=== PATIENT | male | born 1945 | race Caucasian/White ===

== ENCOUNTER → 2018-02-11 09:46 | Outpatient (CLI) | payer MEDICARE, OTHER, SELFPAY ==
--- NOTE | 2018-02-11 | DI.US.S_ITS ---
PROCEDURE: US ABDOMEN LIMITED INDICATIONS: Inguinal mass on CAT SCAN TECHNIQUE: Real-time focused scanning was performed of the inguinal region, with image documentation. COMPARISON: [facility], CT, IVP (ABD & PEL WWO CONTRAST), 12/23/2017, 8:56. FINDINGS: No inguinal hernia found. IMPRESSION: Normal examination, no inguinal hernia found. Dictated by: Sharad Laguerre M.D. on 02/11/2018 at 11:01 Approved by: Sharad Laguerre M.D. on 02/11/2018 at 11:02
--- NOTE | 2018-02-11 | DI.US.S_ITS ---
PROCEDURE: US SCROTUM INDICATIONS: RIGHT SCROTAL MASS TECHNIQUE: Real-time scanning was performed of the scrotum and testicles, with image documentation. Color and pulse Doppler interrogation was performed of both testicles. COMPARISON: [facility], CT, IVP (ABD & PEL WWO CONTRAST), 12/23/2017, 8:56. FINDINGS: Right: Testicle is normal in size at 2.4 x 3.6 x 5.3 cm, and homogenous in echotexture. Epididymis is normal in overall size and morphology. No hydrocele or varicoceles. Overlying scrotal skin is normal in thickness. Left: Testicle is normal in size at 2.4 x 3.3 x 5.4 cm, and homogeneous in echotexture. Epididymis is normal in overall size and morphology. No hydrocele or varicoceles. Overlying scrotal skin is normal in thickness. Doppler: Color and pulse Doppler demonstrate normal and symmetric arterial flow in both testicles. IMPRESSION: No testicular or epididymal mass is identified. The asymmetry in appearance at the inferior margin of the CT scan performed 12/23/17 appears to have been secondary to a relatively high riding right testicle at time of CT scanning. No followup recommended. No inguinal hernia was identified by ultrasound today, either. Dictated by: Sharad Laguerre M.D. on 02/11/2018 at 11:02 Approved by: Sharad Laguerre M.D. on 02/11/2018 at 11:04
== END ==
PROVIDERS: PCP Internal Medicine; Visit Provider Specialist
DX: N50.89 Other specified disorders of the male genital organs (principal); R19.09 Other intra-abdominal and pelvic swelling, mass and lump
CPT/HCPCS: 76705; 76870

== ENCOUNTER → 2018-03-02 10:04 | Outpatient (CLI) | payer MEDICARE, OTHER, SELFPAY ==
[2018-03-02 12:46] LABS: Prostate Specific Antigen 0.664 ng/mL (0.10-4.00)
== END ==
PROVIDERS: PCP Internal Medicine; Visit Provider Specialist
DX: N40.1 Benign prostatic hyperplasia with lower urinary tract symptoms (principal)
CPT/HCPCS: 36415; 84153

== ENCOUNTER → 2018-03-10 07:30 | Outpatient (CLI) | payer MEDICARE, OTHER, SELFPAY ==
[2018-03-10 09:36] LABS: Add Manual Diff / Slide Review NO; Basophils Percent Auto 0.3 % (0-2); Eosinophils Percent Auto 4.6 % (2-4); Hematocrit 45.1 % (41-53); Hemoglobin 15.7 g/dL (13.5-17.5); Lymphocytes Percent Auto 36.1 % (25-40); Mean Corpuscular HGB Conc 34.8 % (30-36); Mean Corpuscular Hemoglobin 31.9 PG (26-34); Mean Corpuscular Volume 91.5 fL (80-100); Monocytes Percent Auto 8.2 % (3-14); Neutrophils Absolute Auto 2800 /uL (3000-5900); Neutrophils Percent Auto 50.8 % (50-75); Platelet Count 146 X10^3/uL (150-400); Red Blood Cell Count 4.93 X10^6/uL (4.5-5.9); Red Cell Distribution Width 13.5 % (11.6-14.8); White Blood Cell Count 5.6 X10^3/uL (4.5-11.0)
[2018-03-10 10:04] LABS: Alanine Aminotransferase 58 IU/L (21-72); Albumin 4.3 g/dL (3.5-5.0); Albumin Globulin Ratio 1.3 (1.0-2.8); Alkaline Phosphatase 84 U/L (38-126); Aspartate Aminotransferase 31 IU/L (17-59); BUN Creatinine Ratio 25.7 (6-22); Bilirubin Total 1.3 mg/dL (0.2-1.3); Blood Urea Nitrogen 18 mg/dL (9-20); Calcium 9.1 mg/dL (8.4-10.2); Carbon Dioxide 24 mmol/L (22-32); Chloride 104 mmol/L (98-107); Cholesterol 241 mg/dL (140-199); Estimated Glomerular Filt Rate > 60.0 mL/min (>60); Globulin 3.2 g/dL (1.7-4.1); Glucose 107 mg/dL (80-110); HDL Cholesterol 41 mg/dL (40-60); HEMOLYSIS < 15 (0-50); LDL Cholesterol Calculated 178 mg/dL (<100); Potassium 3.8 mmol/L (3.4-5.1); Sodium 140 mmol/L (137-145); Total Protein 7.5 g/dL (6.3-8.2); Triglycerides 108 mg/dL (35-150)
[2018-03-10 10:17] LABS: Free T4, Direct Thyroxine 1.26 ng/dL (0.78-2.19)
[2018-03-10 10:31] LABS: Thyroid Stimulating Hormone 2.47 uIU/mL (0.47-4.68)
== END ==
PROVIDERS: PCP Internal Medicine; Visit Provider Internal Medicine
DX: R03.0 Elevated blood-pressure reading, without diagnosis of hypertension (principal); E78.2 Mixed hyperlipidemia
CPT/HCPCS: 36415; 80053; 80061; 84439; 84443; 85025

== ENCOUNTER → 2018-11-30 16:13 | Outpatient (CLI) | payer MEDICARE, OTHER, SELFPAY ==
[2018-11-30 17:00] LABS: Add Manual Diff / Slide Review NO; Basophils Absolute Auto 100 /uL (0-100); Eosinophils Absolute Auto 400 /uL (0-450); Eosinophils Percent Auto 5.8 % (2-4); Hematocrit 44.4 % (41-53); Lymphocytes Absolute Auto 2600 /uL (1100-4500); Lymphocytes Percent Auto 41.5 % (25-40); Mean Corpuscular HGB Conc 33.7 % (30-36); Mean Corpuscular Hemoglobin 30.5 PG (26-34); Mean Corpuscular Volume 90.5 fL (80-100); Monocytes Absolute Auto 600 /uL (0-900); Monocytes Percent Auto 8.6 % (3-14); Neutrophils Absolute Auto 2700 /uL (1500-7000); Neutrophils Percent Auto 43.1 % (50-75); Platelet Count 139 X10^3/uL (150-400); Red Blood Cell Count 4.91 X10^6/uL (4.5-5.9); Red Cell Distribution Width 13.7 % (11.6-14.8); White Blood Cell Count 6.4 X10^3/uL (4.5-11.0)
[2018-12-03 15:00] LABS: Protein C Activity 92 % normal (70-180)
[2018-12-03 17:11] LABS: Anti Cardiolipin Antibody IgG <14 GPL
== END ==
PROVIDERS: PCP Internal Medicine; Visit Provider Internal Medicine
DX: I82.409 Acute embolism and thrombosis of unspecified deep veins of unspecified lower extremity (principal)
CPT/HCPCS: 36415; 81241; 85025; 85300; 85303; 86147

== ENCOUNTER → 2018-12-28 08:56 | Outpatient (CLI) | payer MEDICARE, OTHER, SELFPAY ==
[2018-12-28 10:26] LABS: Alanine Aminotransferase 128 IU/L (21-72); Albumin Globulin Ratio 1.4 (1.0-2.8); Alkaline Phosphatase 118 U/L (38-126); Aspartate Aminotransferase 63 IU/L (17-59); BUN Creatinine Ratio 21.3 (6-22); Bilirubin Total 3.1 mg/dL (0.2-1.3); Blood Urea Nitrogen 17 mg/dL (9-20); Calcium 9.2 mg/dL (8.4-10.2); Carbon Dioxide 25 mmol/L (22-32); Chloride 102 mmol/L (98-107); Cholesterol 165 mg/dL (140-199); Estimated Glomerular Filt Rate > 60.0 mL/min (>60); Globulin 2.8 g/dL (1.7-4.1); Glucose 123 mg/dL (80-110); HDL Cholesterol 26 mg/dL (40-60); HEMOLYSIS < 15 (0-50); LDL Cholesterol Calculated 107 mg/dL (<100); Potassium 3.7 mmol/L (3.4-5.1); Sodium 138 mmol/L (137-145); Total Protein 6.8 g/dL (6.3-8.2); Triglycerides 158 mg/dL (35-150)
== END ==
PROVIDERS: PCP Internal Medicine; Visit Provider Internal Medicine
DX: E78.2 Mixed hyperlipidemia (principal)
CPT/HCPCS: 36415; 80053; 80061

== ENCOUNTER → 2019-01-08 11:31 | Outpatient (CLI) | payer MEDICARE, OTHER, SELFPAY ==
[2019-01-08 13:07] LABS: Alanine Aminotransferase 94 IU/L (21-72); Albumin 4.2 g/dL (3.5-5.0); Albumin Globulin Ratio 1.5 (1.0-2.8); Alkaline Phosphatase 90 U/L (38-126); Aspartate Aminotransferase 54 IU/L (17-59); Bilirubin Total 1.3 mg/dL (0.2-1.3); Bilirubin Unconjugated 0.8 mg/dL (0.0-1.1); Globulin 2.8 g/dL (1.7-4.1); HEMOLYSIS < 15 (0-50); Lipase 45 U/L (23-300)
[2019-01-11 16:06] LABS: Hepatitis A Antibody IgM NONREACTIVE (NONREACTIVE); Hepatitis Acute Panel Interp 0.02; Hepatitis B Core Antibody IgM NONREACTIVE (NONREACTIVE); Hepatitis B Surface Antigen NONREACTIVE (NONREACTIVE); Hepatitis C Antibody NONREACTIVE
== END ==
PROVIDERS: PCP Internal Medicine; Visit Provider Internal Medicine
DX: K75.9 Inflammatory liver disease, unspecified (principal)
CPT/HCPCS: 36415; 80074; 80076; 83690

== ENCOUNTER → 2019-01-11 07:26 | Outpatient (CLI) | payer MEDICARE, OTHER, SELFPAY ==
--- NOTE | 2019-01-11 07:28 | DI.US.S_ITS ---
PROCEDURE: US ABDOMEN COMPLETE INDICATIONS: HEPATITIS, ELEVATED LFTS TECHNIQUE: Real-time scanning was performed of the abdominal and retroperitoneal organs, with image documentation. COMPARISON: None. FINDINGS: Liver: Liver is normal in size and homogeneous in echotexture. Gallbladder: The gallbladder contains sludge and wall thickness is normal at 2.6 mm. Biliary ducts: Intrahepatic bile ducts are non-dilated. Extrahepatic bile duct caliber measures 5.3 mm. Normal is 6-7 mm or less in diameter, or 10 mm or less post-cholecystectomy. Pancreas: Not seen due to bowel gas Spleen: Spleen is normal in size and homogeneous in echotexture. Kidneys: Kidneys are normal in size and echotexture. Right kidney measures 11.6 cm long; left kidney measures 11.1 cm long. No hydronephrosis or nephrolithiasis. No solid masses. Aorta: Visualized aorta is normal in caliber at less than 3 cm. Iliacs: Proximal common iliac arteries are normal in caliber at less than 2.5 cm. IVC: Intrahepatic inferior vena cava is patent. Miscellaneous: No free abdominal fluid. IMPRESSION: Sludge is seen within the gallbladder lumen but there is no sign of acute cholecystitis or biliary obstruction. The liver and spleen are normal in size. The pancreas could not be seen due to overlying bowel gas. Dictated by: Sharad Laguerre M.D. on 01/11/2019 at 9:05 Approved by: Sharad Laguerre M.D. on 01/11/2019 at 9:07
== END ==
PROVIDERS: PCP Internal Medicine; Visit Provider Internal Medicine
DX: K75.9 Inflammatory liver disease, unspecified (principal); K82.8 Other specified diseases of gallbladder; R79.89 Other specified abnormal findings of blood chemistry
CPT/HCPCS: 76700

== ENCOUNTER 2019-04-19 11:37 | Inpatient (IN) | payer MEDICARE, OTHER, SELFPAY ==
[2019-04-19] VITALS (9 sets, daily range): BP systolic 114–162; BP diastolic 65–98; PULSE 55–112; RESP 24–40; TEMP 35.9–37.7; O2SAT 93–100; BMI 30.5
--- NOTE | 2019-04-19 11:47 | DI.CT.S_ITS ---
PROCEDURE: CT ANGIO CHEST PE PROTOCOL INDICATIONS: dyspnea, R CP, h/o DVT TECHNIQUE: After the administration of intravenous contrast, 2 mm thick sections acquired from the pulmonary apices to the posterior costophrenic angles. 3-dimensional maximum intensity projection (MIP) coronal and sagittal reformats were then acquired through the thorax. For radiation dose reduction, the following was used: automated exposure control, adjustment of mA and/or kV according to patient size. COMPARISON: None. FINDINGS: Image quality: Excellent. Pulmonary arteries: Pulmonary arteries are prominent in size. There are filling defects seen in distal right main pulmonary artery extending into upper and lower lobe pulmonary artery branches. No filling defect is seen in left pulmonary artery branches. Lungs and pleura: Small partially loculated right pleural effusion is seen with fluid extending into major and minor fissures on the right side. Patchy airspace opacities are noted in posterior and lateral aspect of right lower lobe. Hazy groundglass opacities in right lower lobe are also seen. There is scarring/atelectasis seen in posterior and lateral aspect of left lung base. No pneumothorax. Central and peripheral airways are patent. Mediastinum: Heart size is enlarged, without pericardial effusion. No mediastinal or hilar adenopathy. Mild ascending thoracic aortic aneurysm is seen, measures up to 4.1 cm in its largest AP and transverse dimensions. Esophagus is normal in caliber, with a small hiatal hernia. Bones and chest wall: No suspicious bony lesions. Ribs and thoracic spine appear intact throughout. Thyroid gland is within normal limits. No axillary or supraclavicular adenopathy. Abdomen: Hepatic steatosis is seen. The visualized portion of urinary bladder shows questionable bladder wall enhancement. A tiny 2 mm calcification in dependent portion of gallbladder lumen is seen. IMPRESSION: 1. Pulmonary emboli in right distal main pulmonary artery extending to right upper and lower lobe pulmonary artery branches. No left-sided pulmonary emboli. 2. Mild ascending thoracic aortic aneurysm measures up to 4.1 cm in diameter. No aortic dissection. Cardiomegaly, no pericardial effusion. 3. Small hiatal hernia. Hepatic steatosis. Tiny gallstone. Please correlate with CT of abdomen and pelvis finding. 4. Small partially loculated right pleural effusion with right lower lobe patchy infiltrate/atelectasis. Scarring/atelectasis at left lung base. Dictated by: Brennan Barr M.D. on 04/19/2019 at 13:33 Approved by: Brennan Barr M.D. on 04/19/2019 at 13:50
--- NOTE | 2019-04-19 11:48 | DI.RAD.S_ITS ---
PROCEDURE: XR CHEST 1V INDICATIONS: R. CP TECHNIQUE: One view of the chest was acquired. COMPARISON: [facility], CT, IVP (ABD & PEL WWO CONTRAST), 12/23/2017, 8:56. [facility], CR, CHEST 1 VIEW, 06/13/2017, 15:12. FINDINGS: Surgical changes and devices: None. Lungs and pleura: Mild bibasilar hazy and streaky opacity, which appears similar to to the lung bases on the CT from 12/23/2017. No consolidation. Blunting of the costophrenic angles which may represent trace pleural effusions. No pneumothorax. Mediastinum: Mediastinal contours appear normal. Heart size is within normal limits. Bones and chest wall: No suspicious bony lesions. Mild scoliosis. Overlying soft tissues appear unremarkable. IMPRESSION: Bibasilar hazy and streaky opacity. This most likely represents atelectasis and/or scarring. Question of trace bilateral pleural effusions. Dictated by: Randal Herrera M.D. on 04/19/2019 at 12:18 Approved by: Randal Herrera M.D. on 04/19/2019 at 12:21
--- NOTE | 2019-04-19 11:59 | PC.NURSE ---
Patient reports shortness of breath with exertion, tachypnea, fatigue, and left chest pain in lower ribs/under left arm area. Seen at clinic today and sent here for r/o blood clot. Patient has A.fib. 100-120bpm with no prior diagnosis of the same.
[2019-04-19 12:01] LABS: Add Manual Diff / Slide Review NO; Basophils Absolute Auto 100 /uL (0-100); Basophils Percent Auto 0.5 % (0-2); Eosinophils Absolute Auto 100 /uL (0-450); Eosinophils Percent Auto 0.5 % (2-4); Hematocrit 50.1 % (41-53); Lymphocytes Absolute Auto 2200 /uL (1100-4500); Lymphocytes Percent Auto 13.9 % (25-40); Mean Corpuscular Hemoglobin 31.5 PG (26-34); Mean Corpuscular Volume 92.6 fL (80-100); Monocytes Absolute Auto 1900 /uL (0-900); Monocytes Percent Auto 12.2 % (3-14); Neutrophils Absolute Auto 11300 /uL (1500-7000); Neutrophils Percent Auto 72.9 % (50-75); Platelet Count 158 X10^3/uL (150-400); Red Blood Cell Count 5.41 X10^6/uL (4.5-5.9); Red Cell Distribution Width 13.3 % (11.6-14.8); White Blood Cell Count 15.5 X10^3/uL (4.5-11.0)
--- NOTE | 2019-04-19 12:05 | ED.SOB ---
HPI - SOB/Dyspnea <Janeth Ortega PA-C - Last Filed: 04/19/19 20:19> General Chief Complaint: Shortness of Breath/Dyspnea Stated Complaint: Sent from [facility] possible clot in lung Time Seen by Provider: 04/19/19 11:43 Source: patient, family and other ([facility] [employer] Lani York) Mode of arrival: ambulatory Limitations: no limitations History of Present Illness This 74-year-old male comes to ED secondary to 4 day history of dyspnea on exertion with some right-sided chest pain. He states that he does not have dyspnea at rest. He states pain feels like it is in his right ribs, like a broken rib. It has actually improved significantly since onset Friday. Pain does not radiate. He denies any palpitations. He states that he has not had wheeze. He has had very mild dry cough since Friday. He has not had any other recent upper respiratory symptoms. He states that he had 1 fever of he believes 101.5 on Friday, none since, has felt a little bit clammy off and on. He denies any nausea, vomiting, or abdominal pain, but states he has had reduced appetite. He states that he has not had any swelling in his arms or legs nor any new pain. He has not had any bowel habit changes. He states he has noticed some orange discoloration of his urine during the same time.. He had this earlier in the year with elevated bilirubin, felt to be viral at that time and resolved on its own. He does have history of DVT diagnosed approximately 6 months ago after air travel. He was on Xarelto x4 months, then discontinued about 2 months ago. He did travel by air again about a month ago to [facility]. He denies any new rash. He states comes are not worse today, just were not getting better so decided to see PCP who sent him here. He has not had any other recent travel or periods of immobility Related Data Home Medications Medication Instructions Recorded Confirmed Vitamin D3 1 cap PO DAILY 04/19/19 04/19/19 Previous Rx's Medication Instructions Recorded atorvastatin 20 mg tablet 20 mg PO DAILY #90 tab 03/27/18 Allergies Allergy/AdvReac Type Severity Reaction Status Date / Time No Known Drug Allergies Allergy Verified 04/19/19 11:14 Review of Systems <Janeth Ortega PA-C - Last Filed: 04/19/19 20:19> Review of Systems ROS Unobtainable: All systems reviewed & are unremarkable except as noted in HPI and below PFSH <Janeth Ortega PA-C - Last Filed: 04/19/19 20:19> Medical History History of DVT of lower extremity (Resolved) Mixed hyperlipidemia (Chronic 06/01/02) 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 Social History Smoking Status: Never smoker Family History Father Prostate cancer Mother No problems noted. Social History household members: spouse Smoking Status: Never smoker alcohol intake: current Exam <Janeth Ortega PA-C - Last Filed: 04/19/19 20:19> Narrative Exam Narrative: GENERAL APPEARANCE: Patient sitting comfortably, in no distress. HEENT: PERRL, EOMI, no scleral icterus, normal oropharynx NECK: Supple LUNGS: Clear to auscultation bilaterally, splinting slightly. CHEST: Mild tenderness around the right inferior ribs HEART: Rate and rhythm regular, normal S1 and S2, no S3 or S4. ABDOMEN: Soft, nondistended, bowel sounds present x 4 quadrants, no masses palpable, no hepatosplenomegaly. Moderate right upper quadrant tenderness without guarding or rebound, no tenderness elsewhere EXTREMITIES: No edema, no calf tenderness DERMATOLOGIC: No jaundice or exanthem NEUROLOGIC: Alert and oriented with normal speech and coordination Initial Vital Signs Initial Vital Signs: Vital Signs Temperature 98.3 F 04/19/19 11:48 Pulse Rate 112 H 04/19/19 11:48 Respiratory Rate 24 04/19/19 11:48 Blood Pressure 162/97 H 04/19/19 11:48 Pulse Oximetry 100 04/19/19 11:48 <Juan Miguel Esqueda DO - Last Filed: 04/20/19 06:49> Initial Vital Signs Initial Vital Signs: Vital Signs Temperature 98.3 F 04/19/19 11:48 Pulse Rate 112 H 04/19/19 11:48 Respiratory Rate 24 04/19/19 11:48 Blood Pressure 162/97 H 04/19/19 11:48 Pulse Oximetry 100 04/19/19 11:48 Course <Janeth Ortega PA-C - Last Filed: 04/19/19 20:19> Additional Information: After verbal report from radiologist regarding significant left-sided PE, I have spoken with Dr. Balderas, patient's PCP regarding admission. Not clear whether this PE is from his previous DVT verses new as he did fly again last month. He has not had any new lower extremity pain or swelling, and the symptoms just started 3 days ago. He also has what is presumably new onset atrial fibrillation as he has been completely asymptomatic. His oxygen saturation has been normal during his stay on room air, somewhat tachypneic. Dr. Balderas agrees with inpatient admission, tele requested, and he will see patient Orders Ordered: ED Orders 04/20/19 04:40 Basic Metabolic Panel Routine Complete Blood Count AUTO DIFF Routine Acetaminophen (Tylenol) 650 mg PO Q6HR PRN PRN Reason: As Needed for Fever/Mild Pain Hydrocodone Bitart/Acetaminophen ([place] 5/325) 1 tab PO Q4HR PRN PRN Reason: Pain, Moderate (4-6) Atorvastatin Calcium (Lipitor) 20 mg PO DAILY [facility] Ketorolac Tromethamine (Toradol) 15 mg IV Q6H PRN PRN Reason: chest pain Stop: 04/24/19 16:49 Last Admin: 04/20/19 00:07 Dose: 15 mg Admin: 04/19/19 17:09 Dose: 15 mg Metoprolol Tartrate (Lopressor) 25 mg PO BID [facility] Last Admin: 04/19/19 22:09 Dose: Not Given Admin: 04/19/19 17:09 Dose: 25 mg Ondansetron HCl (Zofran) 4 mg IV Q8HR PRN PRN Reason: Nausea And Vomiting Rivaroxaban (Xarelto) 15 mg PO BIDWM [facility] Stop: 05/10/19 08:01 Last Admin: 04/19/19 17:10 Dose: 15 mg Sodium Chloride (Normal Saline 0.9% Flush) 10 ml IV BID [facility] Last Admin: 04/19/19 21:33 Dose: 10 ml Sodium Chloride (Normal Saline 0.9% Flush) 10 ml IV PRN PRN PRN Reason: Flush Discontinued Medications Enoxaparin Sodium (Lovenox) 95 mg 1 mg/kg (95 mg) SUBCUT NOW ONE Stop: 04/19/19 14:22 Last Admin: 04/19/19 15:30 Dose: Not Given Enoxaparin Sodium (Lovenox) 95 mg 1 mg/kg (95 mg) SUBCUT NOW ONE Stop: 04/19/19 14:46 Last Admin: 04/19/19 15:06 Dose: 95 mg Vital Signs - 8 hr 04/20/19 00:15 04/20/19 00:37 04/20/19 04:57 Temperature 97.4 F L 97.4 F L Pulse Rate 86 59 L Respiratory Rate 31 H 18 Blood Pressure 117/80 104/79 Pulse Oximetry 97 95 95 <Juan Miguel Esqueda DO - Last Filed: 04/20/19 06:49> Orders Ordered: ED Orders 04/20/19 04:40 Basic Metabolic Panel Routine Complete Blood Count AUTO DIFF Routine Acetaminophen (Tylenol) 650 mg PO Q6HR PRN PRN Reason: As Needed for Fever/Mild Pain Hydrocodone Bitart/Acetaminophen ([place] 5/325) 1 tab PO Q4HR PRN PRN Reason: Pain, Moderate (4-6) Atorvastatin Calcium (Lipitor) 20 mg PO DAILY [facility] Ketorolac Tromethamine (Toradol) 15 mg IV Q6H PRN PRN Reason: chest pain Stop: 04/24/19 16:49 Last Admin: 04/20/19 00:07 Dose: 15 mg Admin: 04/19/19 17:09 Dose: 15 mg Metoprolol Tartrate (Lopressor) 25 mg PO BID [facility] Last Admin: 04/19/19 22:09 Dose: Not Given Admin: 04/19/19 17:09 Dose: 25 mg Ondansetron HCl (Zofran) 4 mg IV Q8HR PRN PRN Reason: Nausea And Vomiting Rivaroxaban (Xarelto) 15 mg PO BIDWM [facility] Stop: 05/10/19 08:01 Last Admin: 04/19/19 17:10 Dose: 15 mg Sodium Chloride (Normal Saline 0.9% Flush) 10 ml IV BID [facility] Last Admin: 04/19/19 21:33 Dose: 10 ml Sodium Chloride (Normal Saline 0.9% Flush) 10 ml IV PRN PRN PRN Reason: Flush Discontinued Medications Enoxaparin Sodium (Lovenox) 95 mg 1 mg/kg (95 mg) SUBCUT NOW ONE Stop: 04/19/19 14:22 Last Admin: 04/19/19 15:30 Dose: Not Given Enoxaparin Sodium (Lovenox) 95 mg 1 mg/kg (95 mg) SUBCUT NOW ONE Stop: 04/19/19 14:46 Last Admin: 04/19/19 15:06 Dose: 95 mg Vital Signs - 8 hr 04/20/19 00:15 04/20/19 00:37 04/20/19 04:57 Temperature 97.4 F L 97.4 F L Pulse Rate 86 59 L Respiratory Rate 31 H 18 Blood Pressure 117/80 104/79 Pulse Oximetry 97 95 95 MDM - SOB/Dyspnea <Janeth Ortega PA-C - Last Filed: 04/19/19 20:19> Lab Data Attestation: I reviewed the patient's lab results. Result diagrams: 04/20/19 04:40 04/20/19 04:40 Lab Results 04/19/19 04/19/19 04/19/19 Range/Units 11:45 11:45 11:45 WBC 15.5 H (4.5-11.0) X10^3/uL RBC 5.41 (4.5-5.9) X10^6/uL Hgb 17.0 (13.5-17.5) g/dL Hct 50.1 (41-53) % MCV 92.6 (80-100) fL MCH 31.5 (26-34) PG MCHC 34.0 (30-36) % RDW 13.3 (11.6-14.8) % Plt Count 158 (150-400) X10^3/uL Neut % (Auto) 72.9 (50-75) % Lymph % (Auto) 13.9 L (25-40) % [place] % (Auto) 12.2 (3-14) % Eos % (Auto) 0.5 L (2-4) % Baso % (Auto) 0.5 (0-2) % Neut # (Auto) 62540 H (3521-0938) /uL Lymph # (Auto) 2200 (8102-3655) /uL [place] # (Auto) 1900 H (0-900) /uL Eos # (Auto) 100 (0-450) /uL Baso # (Auto) 100 (0-100) /uL Sodium 138 (137-145) mmol/L Potassium 4.2 (3.4-5.1) mmol/L Chloride 96 L (98-107) mmol/L Carbon Dioxide 26 (22-32) mmol/L BUN 20 (9-20) mg/dL Creatinine 0.90 (0.66-1.25) mg/dL Estimated GFR > 60.0 (>60) mL/min BUN/Creatinine Ratio 22.2 H (6-22) Glucose 147 H (80-110) mg/dL Calcium 9.3 (8.4-10.2) mg/dL Magnesium 2.1 (1.6-2.3) mg/dL Total Bilirubin 2.8 H (0.2-1.3) mg/dL Direct Bilirubin (0.0-0.4) mg/dL AST 29 (17-59) IU/L ALT 26 (21-72) IU/L Alkaline Phosphatase 102 (38-126) U/L Total Creatine Kinase 67 (55-170) U/L CK-MB (CK-2) TNP CK-MB (CK-2) Rel Index TNP Troponin I 0.015 (0.01-0.034) ng/mL B-Natriuretic Peptide 392 H (<100) Total Protein 8.2 (6.3-8.2) g/dL Albumin 4.3 (3.5-5.0) g/dL Globulin 3.9 (1.7-4.1) g/dL Albumin/Globulin Ratio 1.1 (1.0-2.8) Nasal Screen MRSA (PCR) (Negative) 04/19/19 04/19/19 04/20/19 Range/Units 11:45 15:23 04:40 WBC 11.0 (4.5-11.0) X10^3/uL RBC 4.76 (4.5-5.9) X10^6/uL Hgb 15.3 (13.5-17.5) g/dL Hct 43.5 (41-53) % MCV 91.5 (80-100) fL MCH 32.2 (26-34) PG MCHC 35.2 (30-36) % RDW 13.3 (11.6-14.8) % Plt Count 145 L (150-400) X10^3/uL Neut % (Auto) 64.7 (50-75) % Lymph % (Auto) 20.2 L (25-40) % [place] % (Auto) 13.0 (3-14) % Eos % (Auto) 1.5 L (2-4) % Baso % (Auto) 0.6 (0-2) % Neut # (Auto) 7100 H (1949-2733) /uL Lymph # (Auto) 2200 (2084-2752) /uL [place] # (Auto) 1400 H (0-900) /uL Eos # (Auto) 200 (0-450) /uL Baso # (Auto) 100 (0-100) /uL Sodium (137-145) mmol/L Potassium (3.4-5.1) mmol/L Chloride (98-107) mmol/L Carbon Dioxide (22-32) mmol/L BUN (9-20) mg/dL Creatinine (0.66-1.25) mg/dL Estimated GFR (>60) mL/min BUN/Creatinine Ratio (6-22) Glucose (80-110) mg/dL Calcium (8.4-10.2) mg/dL Magnesium (1.6-2.3) mg/dL Total Bilirubin (0.2-1.3) mg/dL Direct Bilirubin 0.9 H (0.0-0.4) mg/dL AST (17-59) IU/L ALT (21-72) IU/L Alkaline Phosphatase (38-126) U/L Total Creatine Kinase (55-170) U/L CK-MB (CK-2) CK-MB (CK-2) Rel Index Troponin I (0.01-0.034) ng/mL B-Natriuretic Peptide (<100) Total Protein (6.3-8.2) g/dL Albumin (3.5-5.0) g/dL Globulin (1.7-4.1) g/dL Albumin/Globulin Ratio (1.0-2.8) Nasal Screen MRSA (PCR) Negative for mrsa (Negative) 04/20/19 Range/Units 04:40 WBC (4.5-11.0) X10^3/uL RBC (4.5-5.9) X10^6/uL Hgb (13.5-17.5) g/dL Hct (41-53) % MCV (80-100) fL MCH (26-34) PG MCHC (30-36) % RDW (11.6-14.8) % Plt Count (150-400) X10^3/uL Neut % (Auto) (50-75) % Lymph % (Auto) (25-40) % [place] % (Auto) (3-14) % Eos % (Auto) (2-4) % Baso % (Auto) (0-2) % Neut # (Auto) (6201-2780) /uL Lymph # (Auto) (3397-3342) /uL [place] # (Auto) (0-900) /uL Eos # (Auto) (0-450) /uL Baso # (Auto) (0-100) /uL Sodium 135 L (137-145) mmol/L Potassium 3.9 (3.4-5.1) mmol/L Chloride 100 (98-107) mmol/L Carbon Dioxide 25 (22-32) mmol/L BUN 29 H (9-20) mg/dL Creatinine 0.80 (0.66-1.25) mg/dL Estimated GFR > 60.0 (>60) mL/min BUN/Creatinine Ratio 36.3 H (6-22) Glucose 122 H (80-110) mg/dL Calcium 8.7 (8.4-10.2) mg/dL Magnesium (1.6-2.3) mg/dL Total Bilirubin (0.2-1.3) mg/dL Direct Bilirubin (0.0-0.4) mg/dL AST (17-59) IU/L ALT (21-72) IU/L Alkaline Phosphatase (38-126) U/L Total Creatine Kinase (55-170) U/L CK-MB (CK-2) CK-MB (CK-2) Rel Index Troponin I (0.01-0.034) ng/mL B-Natriuretic Peptide (<100) Total Protein (6.3-8.2) g/dL Albumin (3.5-5.0) g/dL Globulin (1.7-4.1) g/dL Albumin/Globulin Ratio (1.0-2.8) Nasal Screen MRSA (PCR) (Negative) Imaging Data CT scan - abdomen: Radiologist's impression: [address] [address] [address] Scan Report Signed Patient: Arnold Stahl [facility]#: [id number] : 3Acct:[id number] Age/Sex: 74 / MDate of Service: 04/19/19 Loc: ED Accession Number: [id number] Procedure: CT abdomen pelvis w con Ordering Provider: Janeth Ortega P.A-C PROCEDURE: CT ABDOMEN PELVIS W CON INDICATIONS: RUQ pain, elevated bili TECHNIQUE: After the administration of intravenous contrast, 5 mm thick sections acquired from the diaphragm to the symphysis. 5 mm coronal and sagittal reformats were acquired. For radiation dose reduction, the following was used: automated exposure control, adjustment of mA and/or kV according to patient size. COMPARISON: [facility], US, US ABDOMEN COMPLETE, 01/11/2019, 7:32. [facility], CT, IVP (ABD & PEL WWO CONTRAST), 12/23/2017, 8:56. FINDINGS: Image quality: Excellent. ABDOMEN: Lung bases: Small right pleural effusion is seen with right basilar infiltrate/atelectasis. Scarring/atelectasis in anterolateral aspect of left lung base is also seen. Heart size is enlarged, no pericardial effusion. Solid organs: Liver is normal in size and enhancement. Hepatic steatosis is seen. Gallbladder is well-distended. No gross calcified gallstone is seen. Mild gallbladder wall enhancement is noted, no significant gallbladder wall thickening.. Biliary system is non dilated. Pancreas enhances normally. Spleen is normal in size and enhancement. No adrenal nodules. Kidneys demonstrate normal size and enhancement, without hydronephrosis. Peritoneum and bowel: Bowel loops demonstrate normal wall thickness and caliber. No free fluid or air. There is a small hiatal hernia. Nodes and vessels: No retroperitoneal or mesenteric adenopathy by size criteria. Aorta and inferior vena cava are normal in size. Miscellaneous: No ventral hernias. PELVIS: Genitourinary: Bladder wall thickness is normal. Mildly enlarged prostate gland with mass effect on floor of urinary bladder is seen. Miscellaneous: No inguinal hernias or adenopathy. Bones: No suspicious bony lesions. No vertebral body compression fractures. 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 IMPRESSION: 1. Diffuse gallbladder wall enhancement. No significant gallbladder wall thickening. No pericholecystic fluid. No calcified gallstone is seen. Overall appearance of gallbladder is not significantly changed from 2018 study. If indicated, ultrasound of abdomen can be done for further evaluation of the gallbladder. 2. Hepatic steatosis. No discrete hepatic lesion. No biliary ductal dilatation. 3. Small right pleural effusion and right basilar infiltrate/atelectasis. 4. No bowel obstruction. No free fluid of air. A small hiatal hernia. Dictated by: Brennan Barr M.D. on 04/19/2019 at 13:27 Approved by: Brennan Barr M.D. on 04/19/2019 at 13:33 ECG Data Attestation: I personally reviewed and interpreted this ECG as follows: (Atrial fibrillation, rate 106) <Juan Miguel Esqueda DO - Last Filed: 04/20/19 06:49> Lab Data Lab Results 04/19/19 04/19/19 04/19/19 Range/Units 11:45 11:45 11:45 WBC 15.5 H (4.5-11.0) X10^3/uL RBC 5.41 (4.5-5.9) X10^6/uL Hgb 17.0 (13.5-17.5) g/dL Hct 50.1 (41-53) % MCV 92.6 (80-100) fL MCH 31.5 (26-34) PG MCHC 34.0 (30-36) % RDW 13.3 (11.6-14.8) % Plt Count 158 (150-400) X10^3/uL Neut % (Auto) 72.9 (50-75) % Lymph % (Auto) 13.9 L (25-40) % [place] % (Auto) 12.2 (3-14) % Eos % (Auto) 0.5 L (2-4) % Baso % (Auto) 0.5 (0-2) % Neut # (Auto) 41826 H (6988-3802) /uL Lymph # (Auto) 2200 (8869-5624) /uL [place] # (Auto) 1900 H (0-900) /uL Eos # (Auto) 100 (0-450) /uL Baso # (Auto) 100 (0-100) /uL Sodium 138 (137-145) mmol/L Potassium 4.2 (3.4-5.1) mmol/L Chloride 96 L (98-107) mmol/L Carbon Dioxide 26 (22-32) mmol/L BUN 20 (9-20) mg/dL Creatinine 0.90 (0.66-1.25) mg/dL Estimated GFR > 60.0 (>60) mL/min BUN/Creatinine Ratio 22.2 H (6-22) Glucose 147 H (80-110) mg/dL Calcium 9.3 (8.4-10.2) mg/dL Magnesium 2.1 (1.6-2.3) mg/dL Total Bilirubin 2.8 H (0.2-1.3) mg/dL Direct Bilirubin (0.0-0.4) mg/dL AST 29 (17-59) IU/L ALT 26 (21-72) IU/L Alkaline Phosphatase 102 (38-126) U/L Total Creatine Kinase 67 (55-170) U/L CK-MB (CK-2) TNP CK-MB (CK-2) Rel Index TNP Troponin I 0.015 (0.01-0.034) ng/mL B-Natriuretic Peptide 392 H (<100) Total Protein 8.2 (6.3-8.2) g/dL Albumin 4.3 (3.5-5.0) g/dL Globulin 3.9 (1.7-4.1) g/dL Albumin/Globulin Ratio 1.1 (1.0-2.8) Nasal Screen MRSA (PCR) (Negative) 04/19/19 04/19/19 04/20/19 Range/Units 11:45 15:23 04:40 WBC 11.0 (4.5-11.0) X10^3/uL RBC 4.76 (4.5-5.9) X10^6/uL Hgb 15.3 (13.5-17.5) g/dL Hct 43.5 (41-53) % MCV 91.5 (80-100) fL MCH 32.2 (26-34) PG MCHC 35.2 (30-36) % RDW 13.3 (11.6-14.8) % Plt Count 145 L (150-400) X10^3/uL Neut % (Auto) 64.7 (50-75) % Lymph % (Auto) 20.2 L (25-40) % [place] % (Auto) 13.0 (3-14) % Eos % (Auto) 1.5 L (2-4) % Baso % (Auto) 0.6 (0-2) % Neut # (Auto) 7100 H (4092-8469) /uL Lymph # (Auto) 2200 (8385-4282) /uL [place] # (Auto) 1400 H (0-900) /uL Eos # (Auto) 200 (0-450) /uL Baso # (Auto) 100 (0-100) /uL Sodium (137-145) mmol/L Potassium (3.4-5.1) mmol/L Chloride (98-107) mmol/L Carbon Dioxide (22-32) mmol/L BUN (9-20) mg/dL Creatinine (0.66-1.25) mg/dL Estimated GFR (>60) mL/min BUN/Creatinine Ratio (6-22) Glucose (80-110) mg/dL Calcium (8.4-10.2) mg/dL Magnesium (1.6-2.3) mg/dL Total Bilirubin (0.2-1.3) mg/dL Direct Bilirubin 0.9 H (0.0-0.4) mg/dL AST (17-59) IU/L ALT (21-72) IU/L Alkaline Phosphatase (38-126) U/L Total Creatine Kinase (55-170) U/L CK-MB (CK-2) CK-MB (CK-2) Rel Index Troponin I (0.01-0.034) ng/mL B-Natriuretic Peptide (<100) Total Protein (6.3-8.2) g/dL Albumin (3.5-5.0) g/dL Globulin (1.7-4.1) g/dL Albumin/Globulin Ratio (1.0-2.8) Nasal Screen MRSA (PCR) Negative for mrsa (Negative) 04/20/19 Range/Units 04:40 WBC (4.5-11.0) X10^3/uL RBC (4.5-5.9) X10^6/uL Hgb (13.5-17.5) g/dL Hct (41-53) % MCV (80-100) fL MCH (26-34) PG MCHC (30-36) % RDW (11.6-14.8) % Plt Count (150-400) X10^3/uL Neut % (Auto) (50-75) % Lymph % (Auto) (25-40) % [place] % (Auto) (3-14) % Eos % (Auto) (2-4) % Baso % (Auto) (0-2) % Neut # (Auto) (3028-0000) /uL Lymph # (Auto) (2368-6940) /uL [place] # (Auto) (0-900) /uL Eos # (Auto) (0-450) /uL Baso # (Auto) (0-100) /uL Sodium 135 L (137-145) mmol/L Potassium 3.9 (3.4-5.1) mmol/L Chloride 100 (98-107) mmol/L Carbon Dioxide 25 (22-32) mmol/L BUN 29 H (9-20) mg/dL Creatinine 0.80 (0.66-1.25) mg/dL Estimated GFR > 60.0 (>60) mL/min BUN/Creatinine Ratio 36.3 H (6-22) Glucose 122 H (80-110) mg/dL Calcium 8.7 (8.4-10.2) mg/dL Magnesium (1.6-2.3) mg/dL Total Bilirubin (0.2-1.3) mg/dL Direct Bilirubin (0.0-0.4) mg/dL AST (17-59) IU/L ALT (21-72) IU/L Alkaline Phosphatase (38-126) U/L Total Creatine Kinase (55-170) U/L CK-MB (CK-2) CK-MB (CK-2) Rel Index Troponin I (0.01-0.034) ng/mL B-Natriuretic Peptide (<100) Total Protein (6.3-8.2) g/dL Albumin (3.5-5.0) g/dL Globulin (1.7-4.1) g/dL Albumin/Globulin Ratio (1.0-2.8) Nasal Screen MRSA (PCR) (Negative) Discharge Plan Departure Patient Disposition: Admitted As Inpatient Clinical Impression: Pulmonary embolism Qualifiers: Pulmonary embolism type: other Chronicity: acute Acute cor pulmonale presence: without acute cor pulmonale Qualified Code(s): I26.99 - Other pulmonary embolism without acute cor pulmonale Atrial fibrillation Qualifiers: Atrial fibrillation type: unspecified Qualified Code(s): I48.91 - Unspecified atrial fibrillation Discharge Date/Time: 04/19/19 14:27 Interventions: ED Discharge Assessment Last Done: 04/19/19 14:27 Admit Date/Time: 04/19/19 15:01 Admit Provider: Mainor Balderas <Juan Miguel Esqueda DO - Last Filed: 04/20/19 06:49> [facility] ED Attending Billy Attestation: I was immediately available in the department for consultation. Documentation has been reviewed. I agree with assessment and plan.
[2019-04-19 12:08] LABS: Creatine Kinase 67 U/L (55-170); Magnesium 2.1 mg/dL (1.6-2.3)
[2019-04-19 12:10] LABS: Alanine Aminotransferase 26 IU/L (21-72); Albumin 4.3 g/dL (3.5-5.0); Albumin Globulin Ratio 1.1 (1.0-2.8); Alkaline Phosphatase 102 U/L (38-126); Aspartate Aminotransferase 29 IU/L (17-59); BUN Creatinine Ratio 22.2 (6-22); Bilirubin Total 2.8 mg/dL (0.2-1.3); Blood Urea Nitrogen 20 mg/dL (9-20); Calcium 9.3 mg/dL (8.4-10.2); Carbon Dioxide 26 mmol/L (22-32); Chloride 96 mmol/L (98-107); Estimated Glomerular Filt Rate > 60.0 mL/min (>60); Globulin 3.9 g/dL (1.7-4.1); Glucose 147 mg/dL (80-110); HEMOLYSIS < 15 (0-50); Potassium 4.2 mmol/L (3.4-5.1); Sodium 138 mmol/L (137-145); Total Protein 8.2 g/dL (6.3-8.2)
--- NOTE | 2019-04-19 12:12 | ED_ITS ---
HPI - SOB/Dyspnea <Janeth Ortega PA-C - Last Filed: 04/19/19 20:19> General Chief Complaint: Shortness of Breath/Dyspnea Stated Complaint: Sent from [facility] possible clot in lung Time Seen by Provider: 04/19/19 11:43 Source: patient, family and other (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 He states that he does not have dyspnea at rest. He states pain feels like it is in his right ribs, like a broken rib. It has actually improved significantly since onset Friday. Pain does not radiate. He denies any palpitations. He states that he has not had wheeze. He has had very mild dry cough since Friday. He has not had any other recent upper respiratory symptoms. He states that he had 1 fever of he believes 101.5 on Friday, none since, has felt a little bit clammy off and on. He denies any nausea, vomiting, or abdominal pain, but states he has had reduced appetite. He states that he has not had any swelling in his arms or legs nor any new pain. He has not had any bowel habit changes. He states he has noticed some o range discoloration of his urine during the same time.. He had this earlier in the year with elevated bilirubin, felt to be viral at that time and resolved on its own. He does have history of DVT diagnosed approximately 6 months ago after air travel. He was on Xarelto x4 months, then discontinued about 2 months ago. He did travel by air again about a month ago to [facility]. He denies any new rash. He states comes are not worse today, just were not getting better so decided to see PCP who sent him here. He has not had any other recent travel or periods of immobility Related Data Home Medications Medication Instructions Recorded Confirmed Vitamin D3 1 cap PO DAILY 04/19/19 04/19/19 Previous Rx's Medication Instructions Recorded atorvastatin 20 mg tablet 20 mg PO DAILY #90 tab 03/27/18 Allergies Allergy/AdvReac Type Severity Reaction Status Date / Time No Known Drug Allergies Allergy Verified 04/19/19 11:14 Review of Systems <Janeth Ortega PA-C - Last Filed: 04/19/19 20:19> Review of Systems ROS Unobtainable: All systems reviewed & are unremarkable except as noted in HPI and below PFSH <Janeth Ortega PA-C - Last Filed: 04/19/19 20:19> Medical History History of DVT of lower extremity (Resolved) Mixed hyperlipidemia (Chronic 06/01/02) 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 Social History Smoking Status: Never smoker Family History Father Prostate cancer Mother No problems noted. Social History household members: spouse Smoking Status: Never smoker alcohol intake: current Exam <Janeth Ortega PA-C - Last Filed: 04/19/19 20:19> Narrative Exam Narrative: GENERAL APPEARANCE: Patient sitting comfortably, in no distress. HEENT: PERRL, EOMI, no scleral icterus, normal oropharynx NECK: Supple LUNGS: Clear to auscultation bilaterally, splinting slightly. CHEST: Mild tenderness around the right inferior ribs HEART: Rate and rhythm regular, normal S1 and S2, no S3 or S4. ABDOMEN: Soft, nondistended, bowel sounds present x 4 quadrants, no masses palpable, no hepatosplenomegaly. Moderate right upper quadrant tenderness without guarding or rebound, no tenderness elsewhere EXTREMITIES: No edema, no calf tenderness DERMATOLOGIC: No jaundice or exanthem NEUROLOGIC: Alert and oriented with normal speech and coordination Initial Vital Signs Initial Vital Signs: Vital Signs Temperature 98.3 F 04/19/19 11:48 Pulse Rate 112 H 04/19/19 11:48 Respiratory Rate 24 04/19/19 11:48 Blood Pressure 162/97 H 04/19/19 11:48 Pulse Oximetry 100 04/19/19 11:48 <Juan Miguel Esqueda DO - Last Filed: 04/20/19 06:49> Initial Vital Signs Initial Vital Signs: Vital Signs Temperature 98.3 F 04/19/19 11:48 Pulse Rate 112 H 04/19/19 11:48 Respiratory Rate 24 04/19/19 11:48 Blood Pressure 162/97 H 04/19/19 11:48 Pulse Oximetry 100 04/19/19 11:48 Course <Janeth Ortega PA-C - Last Filed: 04/19/19 20:19> Additional Information: After verbal report from radiologist regarding significant left-sided PE, I have spoken with Dr. Balderas, patient's PCP regarding admission. Not clear whether this PE is from his previous DVT verses new as he did fly again last month. He has not had any new lower extremity pain or swelling, and the symptoms just started 3 days ago. He also has what is presumably new onset atrial fibrillation as he has been completely asymptomatic. His oxygen saturation has been normal during his stay on room air, somewhat tachypneic. Dr. Balderas agrees with inpatient admission, tele requested, and he will see patient Orders Ordered: ED Orders 04/20/19 04:40 Basic Metabolic Panel Routine Complete Blood Count AUTO DIFF Routine Acetaminophen (Tylenol) 650 mg PO Q6HR PRN PRN Reason: As Needed for Fever/Mild Pain Hydrocodone Bitart/Acetaminophen (Tribune 5/325) 1 tab PO Q4HR PRN PRN Reason: Pain, Moderate (4-6) Atorvastatin Calcium (Lipitor) 20 mg PO DAILY [facility] Ketorolac Tromethamine (Toradol) 15 mg IV Q6H PRN PRN Reason: chest pain Stop: 04/24/19 16:49 Last Admin: 04/20/19 00:07 Dose: 15 mg Admin: 04/19/19 17:09 Dose: 15 mg Metoprolol Tartrate (Lopressor) 25 mg PO BID [facility] Last Admin: 04/19/19 22:09 Dose: Not Given Admin: 04/19/19 17:09 Dose: 25 mg Ondansetron HCl (Zofran) 4 mg IV Q8HR PRN PRN Reason: Nausea And Vomiting Rivaroxaban (Xarelto) 15 mg PO BIDWM [facility] Stop: 05/10/19 08:01 Last Admin: 04/19/19 17:10 Dose: 15 mg Sodium Chloride (Normal Saline 0.9% Flush) 10 ml IV BID [facility] Last Admin: 04/19/19 21:33 Dose: 10 ml Sodium Chloride (Normal Saline 0.9% Flush) 10 ml IV PRN PRN PRN Reason: Flush Discontinued Medications Enoxaparin Sodium (Lovenox) 95 mg 1 mg/kg (95 mg) SUBCUT NOW ONE Stop: 04/19/19 14:22 Last Admin: 04/19/19 15:30 Dose: Not Given Enoxaparin Sodium (Lovenox) 95 mg 1 mg/kg (95 mg) SUBCUT NOW ONE Stop: 04/19/19 14:46 Last Admin: 04/19/19 15:06 Dose: 95 mg Vital Signs - 8 hr 04/20/19 00:15 04/20/19 00:37 04/20/19 04:57 Temperature 97.4 F L 97.4 F L Pulse Rate 86 59 L Respiratory Rate 31 H 18 Blood Pressure 117/80 104/79 Pulse Oximetry 97 95 95 <Juan Miguel Esqueda DO - Last Filed: 04/20/19 06:49> Orders Ordered: ED Orders 04/20/19 04:40 Basic Metabolic Panel Routine Complete Blood Count AUTO DIFF Routine Acetaminophen (Tylenol) 650 mg PO Q6HR PRN PRN Reason: As Needed for Fever/Mild Pain Hydrocodone Bitart/Acetaminophen (Tribune 5/325) 1 tab PO Q4HR PRN PRN Reason: Pain, Moderate (4-6) Atorvastatin Calcium (Lipitor) 20 mg PO DAILY [facility] Ketorolac Tromethamine (Toradol) 15 mg IV Q6H PRN PRN Reason: chest pain Stop: 04/24/19 16:49 Last Admin: 04/20/19 00:07 Dose: 15 mg Admin: 04/19/19 17:09 Dose: 15 mg Metoprolol Tartrate (Lopressor) 25 mg PO BID [facility] Last Admin: 04/19/19 22:09 Dose: Not Given Admin: 04/19/19 17:09 Dose: 25 mg Ondansetron HCl (Zofran) 4 mg IV Q8HR PRN PRN Reason: Nausea And Vomiting Rivaroxaban (Xarelto) 15 mg PO BIDWM [facility] Stop: 05/10/19 08:01 Last Admin: 04/19/19 17:10 Dose: 15 mg Sodium Chloride (Normal Saline 0.9% Flush) 10 ml IV BID [facility] Last Admin: 04/19/19 21:33 Dose: 10 ml Sodium Chloride (Normal Saline 0.9% Flush) 10 ml IV PRN PRN PRN Reason: Flush Discontinued Medications Enoxaparin Sodium (Lovenox) 95 mg 1 mg/kg (95 mg) SUBCUT NOW ONE Stop: 04/19/19 14:22 Last Admin: 04/19/19 15:30 Dose: Not Given Enoxaparin Sodium (Lovenox) 95 mg 1 mg/kg (95 mg) SUBCUT NOW ONE Stop: 04/19/19 14:46 Last Admin: 04/19/19 15:06 Dose: 95 mg Vital Signs - 8 hr 04/20/19 00:15 04/20/19 00:37 04/20/19 04:57 Temperature 97.4 F L 97.4 F L Pulse Rate 86 59 L Respiratory Rate 31 H 18 Blood Pressure 117/80 104/79 Pulse Oximetry 97 95 95 MDM - SOB/Dyspnea <Janeth Ortega PA-C - Last Filed: 04/19/19 20:19> Lab Data Attestation: I reviewed the patient's lab results. Result diagrams: 04/20/19 04:40 04/20/19 04:40 Lab Results 04/19/19 04/19/19 04/19/19 Range/Units 11:45 11:45 11:45 WBC 15.5 H (4.5-11.0) X10^3/uL RBC 5.41 (4.5-5.9) X10^6/uL Hgb 17.0 (13.5-17.5) g/dL Hct 50.1 (41-53) % MCV 92.6 (80-100) fL MCH 31.5 (26-34) PG MCHC 34.0 (30-36) % RDW 13.3 (11.6-14.8) % Plt Count 158 (150-400) X10^3/uL Neut % (Auto) 72.9 (50-75) % Lymph % (Auto) 13.9 L (25-40) % Sac % (Auto) 12.2 (3-14) % Eos % (Auto) 0.5 L (2-4) % Baso % (Auto) 0.5 (0-2) % Neut # (Auto) 30857 H (6991-2969) /uL Lymph # (Auto) 2200 (2025-3846) /uL Sac # (Auto) 1900 H (0-900) /uL Eos # (Auto) 100 (0-450) /uL Baso # (Auto) 100 (0-100) /uL Sodium 138 (137-145) mmol/L Potassium 4.2 (3.4-5.1) mmol/L Chloride 96 L (98-107) mmol/L Carbon Dioxide 26 (22-32) mmol/L BUN 20 (9-20) mg/dL Creatinine 0.90 (0.66-1.25) mg/dL Estimated GFR > 60.0 (>60) mL/min BUN/Creatinine Ratio 22.2 H (6-22) Glucose 147 H (80-110) mg/dL Calcium 9.3 (8.4-10.2) mg/dL Magnesium 2.1 (1.6-2.3) mg/dL Total Bilirubin 2.8 H (0.2-1.3) mg/dL Direct Bilirubin (0.0-0.4) mg/dL AST 29 (17-59) IU/L ALT 26 (21-72) IU/L Alkaline Phosphatase 102 (38-126) U/L Total Creatine Kinase 67 (55-170) U/L CK-MB (CK-2) TNP CK-MB (CK-2) Rel Index TNP Troponin I 0.015 (0.01-0.034) ng/mL B-Natriuretic Peptide 392 H (<100) Total Protein 8.2 (6.3-8.2) g/dL Albumin 4.3 (3.5-5.0) g/dL Globulin 3.9 (1.7-4.1) g/dL Albumin/Globulin Ratio 1.1 (1.0-2.8) Nasal Screen MRSA (PCR) (Negative) 04/19/19 04/19/19 04/20/19 Range/Units 11:45 15:23 04:40 WBC 11.0 (4.5-11.0) X10^3/uL RBC 4.76 (4.5-5.9) X10^6/uL Hgb 15.3 (13.5-17.5) g/dL Hct 43.5 (41-53) % MCV 91.5 (80-100) fL MCH 32.2 (26-34) PG MCHC 35.2 (30-36) % RDW 13.3 (11.6-14.8) % Plt Count 145 L (150-400) X10^3/uL Neut % (Auto) 64.7 (50-75) % Lymph % (Auto) 20.2 L (25-40) % Sac % (Auto) 13.0 (3-14) % Eos % (Auto) 1.5 L (2-4) % Baso % (Auto) 0.6 (0-2) % Neut # (Auto) 7100 H (8610-2536) /uL Lymph # (Auto) 2200 (9034-5218) /uL Sac # (Auto) 1400 H (0-900) /uL Eos # (Auto) 200 (0-450) /uL Baso # (Auto) 100 (0-100) /uL Sodium (137-145) mmol/L Potassium (3.4-5.1) mmol/L Chloride (98-107) mmol/L Carbon Dioxide (22-32) mmol/L BUN (9-20) mg/dL Creatinine (0.66-1.25) mg/dL Estimated GFR (>60) mL/min BUN/Creatinine Ratio (6-22) Glucose (80-110) mg/dL Calcium (8.4-10.2) mg/dL Magnesium (1.6-2.3) mg/dL Total Bilirubin (0.2-1.3) mg/dL Direct Bilirubin 0.9 H (0.0-0.4) mg/dL AST (17-59) IU/L ALT (21-72) IU/L Alkaline Phosphatase (38-126) U/L Total Creatine Kinase (55-170) U/L CK-MB (CK-2) CK-MB (CK-2) Rel Index Troponin I (0.01-0.034) ng/mL B-Natriuretic Peptide (<100) Total Protein (6.3-8.2) g/dL Albumin (3.5-5.0) g/dL Globulin (1.7-4.1) g/dL Albumin/Globulin Ratio (1.0-2.8) Nasal Screen MRSA (PCR) Negative for mrsa (Negative) 04/20/19 Range/Units 04:40 WBC (4.5-11.0) X10^3/uL RBC (4.5-5.9) X10^6/uL Hgb (13.5-17.5) g/dL Hct (41-53) % MCV (80-100) fL MCH (26-34) PG MCHC (30-36) % RDW (11.6-14.8) % Plt Count (150-400) X10^3/uL Neut % (Auto) (50-75) % Lymph % (Auto) (25-40) % Sac % (Auto) (3-14) % Eos % (Auto) (2-4) % Baso % (Auto) (0-2) % Neut # (Auto) (2925-7444) /uL Lymph # (Auto) (2394-8120) /uL Sac # (Auto) (0-900) /uL Eos # (Auto) (0-450) /uL Baso # (Auto) (0-100) /uL Sodium 135 L (137-145) mmol/L Potassium 3.9 (3.4-5.1) mmol/L Chloride 100 (98-107) mmol/L Carbon Dioxide 25 (22-32) mmol/L BUN 29 H (9-20) mg/dL Creatinine 0.80 (0.66-1.25) mg/dL Estimated GFR > 60.0 (>60) mL/min BUN/Creatinine Ratio 36.3 H (6-22) Glucose 122 H (80-110) mg/dL Calcium 8.7 (8.4-10.2) mg/dL Magnesium (1.6-2.3) mg/dL Total Bilirubin (0.2-1.3) mg/dL Direct Bilirubin (0.0-0.4) mg/dL AST (17-59) IU/L ALT (21-72) IU/L Alkaline Phosphatase (38-126) U/L Total Creatine Kinase (55-170) U/L CK-MB (CK-2) CK-MB (CK-2) Rel Index Troponin I (0.01-0.034) ng/mL B-Natriuretic Peptide (<100) Total Protein (6.3-8.2) g/dL Albumin (3.5-5.0) g/dL Globulin (1.7-4.1) g/dL Albumin/Globulin Ratio (1.0-2.8) Nasal Screen MRSA (PCR) (Negative) Imaging Data CT scan - abdomen: Radiologist's impression: [address] [address] [address] Scan Report Signed Patient: Arnold Stahl [facility]#: [id number] : 3Acct:[id number] Age/Sex: 74 / MDate of Service: 04/19/19 Loc: ED Accession Number: [id number] Procedure: CT abdomen pelvis w con Ordering Provider: Janeth Ortega P.A-C PROCEDURE: CT ABDOMEN PELVIS W CON INDICATIONS: RUQ pain, elevated bili TECHNIQUE: After the administration of intravenous contrast, 5 mm thick sections acquired from the diaphragm to the symphysis. 5 mm coronal and sagittal reformats were acquired. For radiation dose reduction, the following was used: automated exposure control, adjustment of mA and/or kV according to patient size. COMPARISON: [facility], US, US ABDOMEN COMPLETE, 01/11/2019, 7:32. [facility], CT, IVP (ABD & PEL WWO CONTRAST), 12/23/2017, 8:56. FINDINGS: Image quality: Excellent. ABDOMEN: Lung bases: Small right pleural effusion is seen with right basilar infiltrate/atelectasis. Scarring/atelectasis in anterolateral aspect of left lung base is also seen. Heart size is enlarged, no pericardial effusion. Solid organs: Liver is normal in size and enhancement. Hepatic steatosis is s een. Gallbladder is well-distended. No gross calcified gallstone is seen. Mild gallbladder wall enhancement is noted, no significant gallbladder wall thickening.. Biliary system is non dilated. Pancreas enhances normally. Spleen is normal in size and enhancement. No adrenal nodules. Kidneys demonstrate normal size and enhancement, without hydronephrosis. Peritoneum and bowel: Bowel loops demonstrate normal wall thickness and caliber. No free fluid or air. There is a small hiatal hernia. Nodes and vessels: No retroperitoneal or mesenteric adenopathy by size criteria. Aorta and inferior vena cava are normal in size. Miscellaneous: No ventral hernias. PELVIS: Genitourinary: Bladder wall thickness is normal. Mildly enlarged prostate gland with mass effect on floor of urinary bladder is seen. Miscellaneous: No inguinal hernias or adenopathy. Bones: No suspicious bony lesions. No vertebral body compression fractures. 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 IMPRESSION: 1. Diffuse gallbladder wall enhancement. No significant gallbladder wall thickening. No pericholecystic fluid. No calcified gallstone is seen. Overall appearance of gallbladder is not significantly changed from 2018 study. If indicated, ultrasound of abdomen can be done for further evaluation of the gallbladder. 2. Hepatic steatosis. No discrete hepatic lesion. No biliary ductal dilatation. 3. Small right pleural effusion and right basilar infiltrate/atelectasis. 4. No bowel obstruction. No free fluid of air. A small hiatal hernia. Dictated by: Brennan Barr M.D. on 04/19/2019 at 13:27 Approved by: Brennan Barr M.D. on 04/19/2019 at 13:33 ECG Data Attestation: I personally reviewed and interpreted this ECG as follows: (Atrial fibrillation, rate 106) <Juan Miguel Esqueda DO - Last Filed: 04/20/19 06:49> Lab Data Lab Results 04/19/19 04/19/19 04/19/19 Range/Units 11:45 11:45 11:45 WBC 15.5 H (4.5-11.0) X10^3/uL RBC 5.41 (4.5-5.9) X10^6/uL Hgb 17.0 (13.5-17.5) g/dL Hct 50.1 (41-53) % MCV 92.6 (80-100) fL MCH 31.5 (26-34) PG MCHC 34.0 (30-36) % RDW 13.3 (11.6-14.8) % Plt Count 158 (150-400) X10^3/uL Neut % (Auto) 72.9 (50-75) % Lymph % (Auto) 13.9 L (25-40) % Sac % (Auto) 12.2 (3-14) % Eos % (Auto) 0.5 L (2-4) % Baso % (Auto) 0.5 (0-2) % Neut # (Auto) 60784 H (0695-5435) /uL Lymph # (Auto) 2200 (8131-4925) /uL Sac # (Auto) 1900 H (0-900) /uL Eos # (Auto) 100 (0-450) /uL Baso # (Auto) 100 (0-100) /uL Sodium 138 (137-145) mmol/L Potassium 4.2 (3.4-5.1) mmol/L Chloride 96 L (98-107) mmol/L Carbon Dioxide 26 (22-32) mmol/L BUN 20 (9-20) mg/dL Creatinine 0.90 (0.66-1.25) mg/dL Estimated GFR > 60.0 (>60) mL/min BUN/Creatinine Ratio 22.2 H (6-22) Glucose 147 H (80-110) mg/dL Calcium 9.3 (8.4-10.2) mg/dL Magnesium 2.1 (1.6-2.3) mg/dL Total Bilirubin 2.8 H (0.2-1.3) mg/dL Direct Bilirubin (0.0-0.4) mg/dL AST 29 (17-59) IU/L ALT 26 (21-72) IU/L Alkaline Phosphatase 102 (38-126) U/L Total Creatine Kinase 67 (55-170) U/L CK-MB (CK-2) TNP CK-MB (CK-2) Rel Index TNP Troponin I 0.015 (0.01-0.034) ng/mL B-Natriuretic Peptide 392 H (<100) Total Protein 8.2 (6.3-8.2) g/dL Albumin 4.3 (3.5-5.0) g/dL Globulin 3.9 (1.7-4.1) g/dL Albumin/Globulin Ratio 1.1 (1.0-2.8) Nasal Screen MRSA (PCR) (Negative) 04/19/19 04/19/19 04/20/19 Range/Units 11:45 15:23 04:40 WBC 11.0 (4.5-11.0) X10^3/uL RBC 4.76 (4.5-5.9) X10^6/uL Hgb 15.3 (13.5-17.5) g/dL Hct 43.5 (41-53) % MCV 91.5 (80-100) fL MCH 32.2 (26-34) PG MCHC 35.2 (30-36) % RDW 13.3 (11.6-14.8) % Plt Count 145 L (150-400) X10^3/uL Neut % (Auto) 64.7 (50-75) % Lymph % (Auto) 20.2 L (25-40) % Sac % (Auto) 13.0 (3-14) % Eos % (Auto) 1.5 L (2-4) % Baso % (Auto) 0.6 (0-2) % Neut # (Auto) 7100 H (1411-6950) /uL Lymph # (Auto) 2200 (1937-4489) /uL Sac # (Auto) 1400 H (0-900) /uL Eos # (Auto) 200 (0-450) /uL Baso # (Auto) 100 (0-100) /uL Sodium (137-145) mmol/L Potassium (3.4-5.1) mmol/L Chloride (98-107) mmol/L Carbon Dioxide (22-32) mmol/L BUN (9-20) mg/dL Creatinine (0.66-1.25) mg/dL Estimated GFR (>60) mL/min BUN/Creatinine Ratio (6-22) Glucose (80-110) mg/dL Calcium (8.4-10.2) mg/dL Magnesium (1.6-2.3) mg/dL Total Bilirubin (0.2-1.3) mg/dL Direct Bilirubin 0.9 H (0.0-0.4) mg/dL AST (17-59) IU/L ALT (21-72) IU/L Alkaline Phosphatase (38-126) U/L Total Creatine Kinase (55-170) U/L CK-MB (CK-2) CK-MB (CK-2) Rel Index Troponin I (0.01-0.034) ng/mL B-Natriuretic Peptide (<100) Total Protein (6.3-8.2) g/dL Albumin (3.5-5.0) g/dL Globulin (1.7-4.1) g/dL Albumin/Globulin Ratio (1.0-2.8) Nasal Screen MRSA (PCR) Negative for mrsa (Negative) 04/20/19 Range/Units 04:40 WBC (4.5-11.0) X10^3/uL RBC (4.5-5.9) X10^6/uL Hgb (13.5-17.5) g/dL Hct (41-53) % MCV (80-100) fL MCH (26-34) PG MCHC (30-36) % RDW (11.6-14.8) % Plt Count (150-400) X10^3/uL Neut % (Auto) (50-75) % Lymph % (Auto) (25-40) % Sac % (Auto) (3-14) % Eos % (Auto) (2-4) % Baso % (Auto) (0-2) % Neut # (Auto) (4104-9424) /uL Lymph # (Auto) (1052-0709) /uL Sac # (Auto) (0-900) /uL Eos # (Auto) (0-450) /uL Baso # (Auto) (0-100) /uL Sodium 135 L (137-145) mmol/L Potassium 3.9 (3.4-5.1) mmol/L Chloride 100 (98-107) mmol/L Carbon Dioxide 25 (22-32) mmol/L BUN 29 H (9-20) mg/dL Creatinine 0.80 (0.66-1.25) mg/dL Estimated GFR > 60.0 (>60) mL/min BUN/Creatinine Ratio 36.3 H (6-22) Glucose 122 H (80-110) mg/dL Calcium 8.7 (8.4-10.2) mg/dL Magnesium (1.6-2.3) mg/dL Total Bilirubin (0.2-1.3) mg/dL Direct Bilirubin (0.0-0.4) mg/dL AST (17-59) IU/L ALT (21-72) IU/L Alkaline Phosphatase (38-126) U/L Total Creatine Kinase (55-170) U/L CK-MB (CK-2) CK-MB (CK-2) Rel Index Troponin I (0.01-0.034) ng/mL B-Natriuretic Peptide (<100) Total Protein (6.3-8.2) g/dL Albumin (3.5-5.0) g/dL Globulin (1.7-4.1) g/dL Albumin/Globulin Ratio (1.0-2.8) Nasal Screen MRSA (PCR) (Negative) Discharge Plan Departure Patient Disposition: Admitted As Inpatient Clinical Impression: Pulmonary embolism Qualifiers: Pulmonary embolism type: other Chronicity: acute Acute cor pulmonale presence: without acute cor pulmonale Qualified Code(s): I26.99 - Other pulmonary embolism without acute cor pulmonale Atrial fibrillation Qualifiers: Atrial fibrillation type: unspecified Qualified Code(s): I48.91 - Unspecified atrial fibrillation Discharge Date/Time: 04/19/19 14:27 Interventions: ED Discharge Assessment Last Done: 04/19/19 14:27 Admit Date/Time: 04/19/19 15:01 Admit Provider: Mainor Balderas <Juan Miguel Esqueda DO - Last Filed: 04/20/19 06:49> [facility] Attestation: I was immediately available in the department for consultation. Documentation has been reviewed. I agree with assessment and plan.
[2019-04-19 12:20] LABS: Troponin I 0.015 ng/mL (0.01-0.034)
[2019-04-19 12:39] LABS: B Type Natriuretic Peptide 392 (<100)
--- NOTE | 2019-04-19 12:41 | DI.CT.S_ITS ---
PROCEDURE: CT ABDOMEN PELVIS W CON INDICATIONS: RUQ pain, elevated bili TECHNIQUE: After the administration of intravenous contrast, 5 mm thick sections acquired from the diaphragm to the symphysis. 5 mm coronal and sagittal reformats were acquired. For radiation dose reduction, the following was used: automated exposure control, adjustment of mA and/or kV according to patient size. COMPARISON: [facility], US, US ABDOMEN COMPLETE, 01/11/2019, 7:32. [facility], CT, IVP (ABD & PEL WWO CONTRAST), 12/23/2017, 8:56. FINDINGS: Image quality: Excellent. ABDOMEN: Lung bases: Small right pleural effusion is seen with right basilar infiltrate/atelectasis. Scarring/atelectasis in anterolateral aspect of left lung base is also seen. Heart size is enlarged, no pericardial effusion. Solid organs: Liver is normal in size and enhancement. Hepatic steatosis is seen. Gallbladder is well-distended. No gross calcified gallstone is seen. Mild gallbladder wall enhancement is noted, no significant gallbladder wall thickening.. Biliary system is non dilated. Pancreas enhances normally. Spleen is normal in size and enhancement. No adrenal nodules. Kidneys demonstrate normal size and enhancement, without hydronephrosis. Peritoneum and bowel: Bowel loops demonstrate normal wall thickness and caliber. No free fluid or air. There is a small hiatal hernia. Nodes and vessels: No retroperitoneal or mesenteric adenopathy by size criteria. Aorta and inferior vena cava are normal in size. Miscellaneous: No ventral hernias. PELVIS: Genitourinary: Bladder wall thickness is normal. Mildly enlarged prostate gland with mass effect on floor of urinary bladder is seen. Miscellaneous: No inguinal hernias or adenopathy. Bones: No suspicious bony lesions. No vertebral body compression fractures. 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 IMPRESSION: 1. Diffuse gallbladder wall enhancement. No significant gallbladder wall thickening. No pericholecystic fluid. No calcified gallstone is seen. Overall appearance of gallbladder is not significantly changed from 2018 study. If indicated, ultrasound of abdomen can be done for further evaluation of the gallbladder. 2. Hepatic steatosis. No discrete hepatic lesion. No biliary ductal dilatation. 3. Small right pleural effusion and right basilar infiltrate/atelectasis. 4. No bowel obstruction. No free fluid of air. A small hiatal hernia. Dictated by: Brennan Barr M.D. on 04/19/2019 at 13:27 Approved by: Brennan Barr M.D. on 04/19/2019 at 13:33
[2019-04-19 12:46] LABS: Bilirubin Direct 0.9 mg/dL (0.0-0.4)
--- NOTE | 2019-04-19 14:29 | P.HP_ITS ---
History of Present Illness Date Patient Seen: 04/19/19 Chief complaint: Sent from [facility] possible clot in lung Narrative: Patient was seen in the clinic earlier today and felt to have possible pulmonary emboli based on symptoms presentation and prior history of same. He was transferred to that hospital emergency department for evaluation. In the ER he was found to be in new atrial fibrillation with seemingly least borderline controlled ventricular response as well as right-sided large pulmonary embolism. Patient also found to have hyperbilirubinemia without other abnormalities. Patient had had several days of right-sided chest pain a sense of shortness of breath despite normal numbers on evaluation. Had recently traveled to [facility]. Previously had a DVT diagnosed while in [place] diagnosed there. He had completed a several month course of anticoagulation had a workup for hypercoagulable state which was negative and had his anticoagulation discontinued in early February of this year. 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 Social History Smoking Status: Never smoker Family & Social History Family History Father Prostate cancer Mother No problems noted. Tobacco & Substance use: Smoking Status Never smoker Meds Home Medications Medication Instructions Recorded Confirmed Type atorvastatin 20 mg tablet 20 mg PO DAILY #90 tab 03/27/18 04/19/19 Rx Vitamin D3 1 cap PO DAILY 04/19/19 04/19/19 History Allergies Allergy/AdvReac Type Severity Reaction Status Date / Time No Known Drug Allergies Allergy Verified 04/19/19 11:14 Review of Systems Constitutional Constitutional: Denies excessive sweating, Denies fever(s), Denies headache(s), Denies weakness, Denies weight gain and Denies weight loss Eyes Eyes: Denies change in vision, Denies itchy eyes, Denies loss of vision and Denies other visual disturbances ENT Ears, Nose, Mouth, and Throat: No difficulty swallowing, No headache(s) and No neck pain Cardiovascular Cardiovascular: Denies chest pain, Denies fainting, Denies fast heart rate, Denies irregular heart rhythm, Denies rapid, pounding, or irregular heartbeat, Reports shortness of breath, Reports shortness of breath with activity, Reports shortness of breath when lying down and Denies slow heart rate Respiratory Respiratory: Reports dyspnea and Reports dyspnea on exertion Gastrointestinal Gastrointestinal: Denies abdominal pain, Denies bloating, Denies change in bowel habits, Denies change in stool character, Denies dysphagia, Denies nausea, Denies vomiting and Denies hematemesis Genitourinary Genitourinary: Denies hematuria, Denies difficulty urinating, Denies urinary frequency and Reports other (Helm colored urine) Musculoskeletal Musculoskeletal: Denies abnormal gait, Denies myalgias, Denies arthralgias, Denies limited range of motion and Denies neck pain Integumentary/Breasts Skin/Breast: Denies bleeding lesions, Denies change in pigmentation, Denies changing lesions, Denies new lesions, Denies rash, Denies skin swelling, Denies sores and Denies jaundice Neurologic Neurologic: Denies abnormal gait, Denies behavioral changes, Denies confusion, Denies syncope, Denies headache(s), Denies loss of vision, Denies memory loss and Denies weakness Psychiatric Psychiatric: Denies behavioral changes, Denies change in appetite, Denies confusion, Denies difficulty concentrating, Denies auditory hallucinations, Denies memory loss, Denies mood swings and Denies suicidal ideation Endocrine Endocrine: Denies excessive sweating and Denies palpitations Hematologic/Lymphatic Hematologic/Lymphatic: Denies easy bleeding, Denies easy bruising and Denies lymphadenopathy Allergic/Immunologic Allergic/Immunologic: Denies itchy eyes Exam Vital Signs (past 8 hours): - 04/19/19 11:48 04/19/19 12:00 04/19/19 12:30 Temperature 98.3 F Pulse Rate 112 H 55 L 102 H Respiratory Rate 24 27 H 24 Blood Pressure 162/97 H Blood Pressure [Left Arm] 119/98 H 125/87 Pulse Oximetry 100 96 94 04/19/19 13:00 04/19/19 13:30 04/19/19 14:00 Temperature Pulse Rate 96 H 101 H 101 H Respiratory Rate 29 H 39 H 40 H Blood Pressure Blood Pressure [Left Arm] 130/94 H 120/78 134/96 H Pulse Oximetry 95 96 94 Oxygen Delivery Method Room Air Const General: cooperative, healthy appearing, comfortable, well developed and well groomed Nutritional Appearance: well nourished Orientation: alert, awake and oriented x3 [facility] Head: normocephalic, atraumatic, No cyanosis of lips/distal nose, No raccoon eyes and No periorbital ecchymosis Ears: hearing grossly normal bilaterally and external ears normal Nose: external nose normal and nares normal Face and sinus: normal facial exam and face symmetric Mouth: oral mucosae normal, lip normal and tongue normal Eyes Alignment and Position: alignment normal Periorbital: periorbital findings normal Eyelids: eyelids normal Conjunctivae: conjunctivae normal Sclera: sclerae normal Cornea: corneas normal Pupils: PERRL EOM: EOM intact bilaterally Neck Neck: normal visual inspection, full ROM, trachea midline and No anterior neck swelling Thyroid: not diffusely enlarged Carotids: normal carotid upstroke Lymphatic: No lymphadenopathy Chest Chest: normal inspection of the chest, No crepitus and No tenderness Breast inspection: normal inspection of the breasts Resp Effort & Inspection: normal respiratory effort, able to speak in complete sentences, no audible wheezes, no cough and no retractions Auscultation: clear to auscultation bilaterally, no rales, no rhonchi, no wheezes and no rubs Percussion: percussion normal Tactile Fremitus: tactile fremitus absent Cardio Palpation: normal PMI Rate: regular rate Rhythm: regular rhythm Heart Sounds: S1 normal, S2 normal and normal, physiologic split S2 Bruits: no carotid bruits Pulses: brachial pulses present and radial pulses present GI Inspection: normal to inspection Palpation: soft and no hepatosplenomegaly Percussion: normal to percussion Auscultation: normal bowel sounds Back/Spine/Pelvis Back: No CVA tenderness Cervical Spine: normal cervical lordosis Thoracic/Lumbar Spine: thoracic and lumbar spine normal to inspection Skin General: no rashes or lesions noted, No excoriations, No induration, No jaundice, No mottling and No petechiae Lesions: no lesions (no worrisome/abl lesions) Rashes: no rashes Trauma: no lacerations or abrasions Wounds: no wounds Hair: normal Neuro General: alert, awake, oriented x3, tone normal and normal light touch, pain and propioception Cranial Nerves: CN's II-XI intact bilaterally Cognition: normal cognition Speech: speech normal Motor: muscle tone normal throughout Sensory Exam: no sensory deficits noted DTR's: Rt Biceps: 2+, Lt Biceps: 2+, Rt Brachioradialis: 2+, Lt Brachioradialis: 2+, Rt Patellar: 2+ and Lt Patellar: 2+ Extrem General: normal to inspection, no clubbing, cyanosis or edema and No calf tenderness Right upper extremity: normal to inspection Left upper extremity: normal to inspection Right lower extremity: normal to inspection Left lower extremity: normal to inspection Psych Appearance: grossly normal Mental Status: mental status grossly normal Speech and Movement: speech and movement normal and speech clear Mood: congruent mood Affect: normal affect Attitude: cooperative Thought Process: normal Thought Content: normal Judgment: judgment good Objective Labs Result Diagrams: 04/19/19 11:45 04/19/19 11:45 Labs: Laboratory Results - last 24 hr 04/19/19 04/19/19 04/19/19 11:45 11:45 11:45 WBC 15.5 H RBC 5.41 Hgb 17.0 Hct 50.1 MCV 92.6 MCH 31.5 MCHC 34.0 RDW 13.3 Plt Count 158 Neut % (Auto) 72.9 Lymph % (Auto) 13.9 L [place] % (Auto) 12.2 Eos % (Auto) 0.5 L Baso % (Auto) 0.5 Neut # (Auto) 83829 H Lymph # (Auto) 2200 [place] # (Auto) 1900 H Eos # (Auto) 100 Baso # (Auto) 100 Sodium 138 Potassium 4.2 Chloride 96 L Carbon Dioxide 26 BUN 20 Creatinine 0.90 Estimated GFR > 60.0 BUN/Creatinine Ratio 22.2 H Glucose 147 H Calcium 9.3 Magnesium 2.1 Total Bilirubin 2.8 H Direct Bilirubin AST 29 ALT 26 Alkaline Phosphatase 102 Total Creatine Kinase 67 CK-MB (CK-2) TNP CK-MB (CK-2) Rel Index TNP Troponin I 0.015 B-Natriuretic Peptide 392 H Total Protein 8.2 Albumin 4.3 Globulin 3.9 Albumin/Globulin Ratio 1.1 04/19/19 11:45 WBC RBC Hgb Hct MCV MCH MCHC RDW Plt Count Neut % (Auto) Lymph % (Auto) [place] % (Auto) Eos % (Auto) Baso % (Auto) Neut # (Auto) Lymph # (Auto) [place] # (Auto) Eos # (Auto) Baso # (Auto) Sodium Potassium Chloride Carbon Dioxide BUN Creatinine Estimated GFR BUN/Creatinine Ratio Glucose Calcium Magnesium Total Bilirubin Direct Bilirubin 0.9 H AST ALT Alkaline Phosphatase Total Creatine Kinase CK-MB (CK-2) CK-MB (CK-2) Rel Index Troponin I B-Natriuretic Peptide Total Protein Albumin Globulin Albumin/Globulin Ratio Assessment & Plan Assessment & Plan narrative: 1. Pulmonary embolism-patient seems hemodynamically stable with minimal hypoxia if any. This point he needs to be reanticoagulated. He took Xarelto without difficulty previously for his DVT. I will give him a single dose of Lovenox to initiate his anticoagulation and then continue with Xarelto orally. 2. Atrial fibrillation-seems to be rate controlled at this point. Most likely secondary to his pulmonary embolism. Will add low-dose beta-hoa an effort to keep him rate controlled. He will be fully anticoagulated anyway because of his pulmonary embolism. Plan to check echocardiography while hospitalized as well. 3. Hyperbilirubinemia-no clear etiology for this. Abdominal CT shows abnormalities of the gallbladder but those are stable and chronic without evidence of progression. LFTs which were abnormal previously in this situation are now normal.No clear etiology for this at this point. Will consider GI consultation as an outpatient since that specialty is not available at this hospital. Given the serious nature of his diagnoses as well as the uncertain nature of his atrial fibrillation patient clearly deserves inpatient hospitalization. He more likely than all be in the hospital greater than 48 hours to span 2 separate midnights
[2019-04-19] MEDS: ENOXAPARIN 100 MG/ML SYRINGE 95 MG SUBCUT (15:06)
[2019-04-19] MEDS: KETOROLAC 15 MG/ML VIAL IV (17:09)
[2019-04-19] MEDS: METOPROLOL IR 25 MG TABLET PO (17:09)
[2019-04-19] MEDS: RIVAROXABAN 10 MG TABLET 15 MG PO (17:10)
[2019-04-19] MEDS: SODIUM CHLORIDE 0.9% FLUSH 10 ML IV (21:33)
--- NOTE | 2019-04-19 22:11 | PC.NURSE ---
haylie note pt breathing 30-46 breaths per minute, very shallow. Pt denies SOB at rest. Pt says it hurts to take deeper breaths. Pt reluctant to take narcotics. Left message with Dr. Balderas' office. New orders later seen in EMR. Medicated pt with Toradol with reduction in pain. Had RT instruct pt in incentive spirometer and splinting. Pt has progressed from 500 ml to 1250 ml volumes this shift.
[2019-04-20] MEDS: KETOROLAC 15 MG/ML VIAL IV (00:07)
[2019-04-20 00:15] VITALS: BP 117/80; PULSE 86; RESP 31; TEMP 36.3; O2SAT 97
[2019-04-20 00:37] VITALS: O2SAT 95
[2019-04-20 04:57] VITALS: BP 104/79; PULSE 59; RESP 18; TEMP 36.3; O2SAT 95
[2019-04-20 05:05] LABS: Add Manual Diff / Slide Review NO; Basophils Absolute Auto 100 /uL (0-100); Basophils Percent Auto 0.6 % (0-2); Eosinophils Absolute Auto 200 /uL (0-450); Eosinophils Percent Auto 1.5 % (2-4); Hematocrit 43.5 % (41-53); Hemoglobin 15.3 g/dL (13.5-17.5); Lymphocytes Absolute Auto 2200 /uL (1100-4500); Lymphocytes Percent Auto 20.2 % (25-40); Mean Corpuscular HGB Conc 35.2 % (30-36); Mean Corpuscular Hemoglobin 32.2 PG (26-34); Mean Corpuscular Volume 91.5 fL (80-100); Monocytes Absolute Auto 1400 /uL (0-900); Neutrophils Absolute Auto 7100 /uL (1500-7000); Neutrophils Percent Auto 64.7 % (50-75); Platelet Count 145 X10^3/uL (150-400); Red Blood Cell Count 4.76 X10^6/uL (4.5-5.9); Red Cell Distribution Width 13.3 % (11.6-14.8)
[2019-04-20 05:13] LABS: BUN Creatinine Ratio 36.3 (6-22); Blood Urea Nitrogen 29 mg/dL (9-20); Calcium 8.7 mg/dL (8.4-10.2); Carbon Dioxide 25 mmol/L (22-32); Chloride 100 mmol/L (98-107); Estimated Glomerular Filt Rate > 60.0 mL/min (>60); Glucose 122 mg/dL (80-110); HEMOLYSIS < 15 (0-50); Potassium 3.9 mmol/L (3.4-5.1); Sodium 135 mmol/L (137-145)
[2019-04-20 07:00] VITALS: O2SAT 98
[2019-04-20 07:41] VITALS: BP 132/89; PULSE 69; RESP 24; TEMP 36.8; O2SAT 97
[2019-04-20] MEDS: RIVAROXABAN 10 MG TABLET 15 MG PO (08:32)
[2019-04-20] MEDS: METOPROLOL IR 25 MG TABLET PO (08:35)
[2019-04-20] MEDS: ATORVASTATIN 20 MG TABLET PO (08:35)
--- NOTE | 2019-04-20 08:44 | CM.DANOTE ---
DCP: Case received, EMR reviewed and met with patient. , Melly, also in the room. Introduced self and role. Was able to get baseline information regarding patient's history. DCP assessment completed with information currently available. Patient is a 74 year old male who admitted yesterday afternoon to the care of the hospitalist team. PCP: Dr. Balderas. Payer: [email or web address]. Patient came to the hospital via wheel-chair from his appt at [facility], secondary to symptoms of potential embolus. Patient was having some chest discomfort and shortness of breath. Patient holds diagnosis of right sided P.E. He is currently here being re-anticoagulated. Patient is alert and oriented, pleasant, here with his , Melly, at bedside. He is independent. He recently came back from [place], and he stated that he was in the hospital there for a DVT. At this time, Dr. Balderas is contemplating that patient either be on Pradaxa, Eliquis, or Xarelto. He is requesting running this by pharmacy to see what his insurance would pay. Asked him to write the prescriptions, and we can fax to his pharmacy. P: DCP to continue to follow. Will follow up with prescriptions. Patient should be able to go home when he is medically stable. Tamara Lai RN/Patent Searcher
--- NOTE | 2019-04-20 08:53 | PM.DS.1 ---
History of Present Illness Chief complaint: Sent from [facility] possible clot in lung Narrative: Patient was seen in the clinic earlier today and felt to have possible pulmonary emboli based on symptoms presentation and prior history of same. He was transferred to that hospital emergency department for evaluation. In the ER he was found to be in new atrial fibrillation with seemingly least borderline controlled ventricular response as well as right-sided large pulmonary embolism. Patient also found to have hyperbilirubinemia without other abnormalities. Patient had had several days of right-sided chest pain a sense of shortness of breath despite normal numbers on evaluation. Had recently traveled to [facility]. Previously had a DVT diagnosed while in [place] diagnosed there. He had completed a several month course of anticoagulation had a workup for hypercoagulable state which was negative and had his anticoagulation discontinued in early February of this year. Discharge Providers Date of admission: 04/19/19 15:01 Discharge Date: 04/20/19 Primary care physician: Mainor Mason MD Consults: 04/19/19 11:46 Consult to Respiratory Therapy Evaluate & Treat Comment: Physician Instructions: Evaluate and treat Discharge provider: Mainor Mason MD Summary Discharge Diagnosis: 1. Acute pulmonary embolism 2. Atrial fibrillation with rapid ventricular response 3. Atrial flutter with controlled ventricular response 4. BPH with LUTS 5. Hyperlipidemia 6. Hyperbilirubinemia, etiology not determined Hospital Course: Patient presented to the clinic who sent him to the emergency department with dyspnea, chest pain, cough and other symptoms consistent with pulmonary embolism. He was evaluated in the ER found to have a pulmonary embolism on the right side. He was anticoagulated with Lovenox and then oral anticoagulant. Patient was hemodynamically and cardiovascularly stable fortunately. He was not even hypoxic. Patient also was found to be in atrial fibrillation with rapid ventricular response initially. Patient's cardiac rhythm switch between atrial fibrillation atrial flutter. He eventually converted back to sinus rhythm early in the morning of the day of discharge. He was really quite asymptomatic. Was minimally tachycardic with any of this with heart rate in the 110 range at maximum. Was started on a beta-hoa to help control his rate and rhythm and this will be continued at low dose upon discharge Given this is patient's 2nd thromboembolic event he will need to continue on long-term anticoagulation. He will be discharged to complete the usual immediate post pulmonary embolism course followed by long-term management. Patient would prefer not to be on warfarin because of the need for testing and his lifestyle which includes significant travel. He was started on Xarelto which he took previously for DVT. However this is quite expensive and depending on patient's out of pocket cost may be switched to Eliquis or Pradaxa long-term. This will require some investigation with patient's insurance and prescription coverage plan. Patient will be seen in the clinic to follow-up on his cardiac dysrhythmia his echocardiogram and his pulmonary embolism in about a week or 10 days time Status at Discharge Cognitive/behavioral status at discharge: at baseline, oriented Functional status at discharge: independent ambulation Overall status at discharge: patient is progressing back to baseline Time Spent with Patient Greater than 30 minutes Exam Vital Signs (past 8 hours): - 04/20/19 04:57 04/20/19 07:41 Temperature 97.4 F L 98.2 F Pulse Rate 59 L 69 Respiratory Rate 18 24 Blood Pressure 104/79 132/89 Pulse Oximetry 95 97 Oxygen Delivery Method Room Air Oxygen Flow Rate 0 Narrative Exam Narrative: HEENT-unremarkable, normocephalic atraumatic Neck-no lymphadenopathy no bruits Lungs-clear anteriorly and posteriorly no wheezes no crackles good breath sounds Heart-regular rate and rhythm, no murmur, rub, or gallop. normal S1-S2 Abdomen-positive bowel tones, soft, nontender, nondistended, no hepatosplenomegaly, no masses palpable Neuro-normal to screening exam, gait not tested Extremities-no cyanosis clubbing or edema Objective Labs Result Diagrams: 04/20/19 04:40 04/20/19 04:40 Labs: Laboratory Results - last 24 hr 04/19/19 04/19/19 04/19/19 11:45 11:45 11:45 WBC 15.5 H RBC 5.41 Hgb 17.0 Hct 50.1 MCV 92.6 MCH 31.5 MCHC 34.0 RDW 13.3 Plt Count 158 Neut % (Auto) 72.9 Lymph % (Auto) 13.9 L [place] % (Auto) 12.2 Eos % (Auto) 0.5 L Baso % (Auto) 0.5 Neut # (Auto) 03875 H Lymph # (Auto) 2200 [place] # (Auto) 1900 H Eos # (Auto) 100 Baso # (Auto) 100 Sodium 138 Potassium 4.2 Chloride 96 L Carbon Dioxide 26 BUN 20 Creatinine 0.90 Estimated GFR > 60.0 BUN/Creatinine Ratio 22.2 H Glucose 147 H Calcium 9.3 Magnesium 2.1 Total Bilirubin 2.8 H Direct Bilirubin AST 29 ALT 26 Alkaline Phosphatase 102 Total Creatine Kinase 67 CK-MB (CK-2) TNP CK-MB (CK-2) Rel Index TNP Troponin I 0.015 B-Natriuretic Peptide 392 H Total Protein 8.2 Albumin 4.3 Globulin 3.9 Albumin/Globulin Ratio 1.1 Nasal Screen MRSA (PCR) 04/19/19 04/19/19 04/20/19 11:45 15:23 04:40 WBC 11.0 RBC 4.76 Hgb 15.3 Hct 43.5 MCV 91.5 MCH 32.2 MCHC 35.2 RDW 13.3 Plt Count 145 L Neut % (Auto) 64.7 Lymph % (Auto) 20.2 L [place] % (Auto) 13.0 Eos % (Auto) 1.5 L Baso % (Auto) 0.6 Neut # (Auto) 7100 H Lymph # (Auto) 2200 [place] # (Auto) 1400 H Eos # (Auto) 200 Baso # (Auto) 100 Sodium Potassium Chloride Carbon Dioxide BUN Creatinine Estimated GFR BUN/Creatinine Ratio Glucose Calcium Magnesium Total Bilirubin Direct Bilirubin 0.9 H AST ALT Alkaline Phosphatase Total Creatine Kinase CK-MB (CK-2) CK-MB (CK-2) Rel Index Troponin I B-Natriuretic Peptide Total Protein Albumin Globulin Albumin/Globulin Ratio Nasal Screen MRSA (PCR) Negative for mrsa 04/20/19 04:40 WBC RBC Hgb Hct MCV MCH MCHC RDW Plt Count Neut % (Auto) Lymph % (Auto) [place] % (Auto) Eos % (Auto) Baso % (Auto) Neut # (Auto) Lymph # (Auto) [place] # (Auto) Eos # (Auto) Baso # (Auto) Sodium 135 L Potassium 3.9 Chloride 100 Carbon Dioxide 25 BUN 29 H Creatinine 0.80 Estimated GFR > 60.0 BUN/Creatinine Ratio 36.3 H Glucose 122 H Calcium 8.7 Magnesium Total Bilirubin Direct Bilirubin AST ALT Alkaline Phosphatase Total Creatine Kinase CK-MB (CK-2) CK-MB (CK-2) Rel Index Troponin I B-Natriuretic Peptide Total Protein Albumin Globulin Albumin/Globulin Ratio Nasal Screen MRSA (PCR) Discharge Plan Discharge Plan Patient Disposition: Home Discharge Med Rec/Prescriptions Prescriptions: Continued atorvastatin 20 mg tablet 20 mg PO DAILY Qty: 90 RF: 3 Vitamin D3 1 cap PO DAILY RF: 0 No Action Xarelto 15 mg tablet 15 mg PO BID Qty: 42 RF: 0 metoprolol succinate 25 mg tablet extended release 24 hr 25 mg PO DAILY Qty: 90 RF: 3 Follow up/Referrals: Mainor Mason MD [Primary Care Provider] - 04/29/19 3:00 pm (appt:04/29 @ 3:[address] mason please arrive 15minutes prior to your scheduled appointment 7-10 days) Provider Discharge Instructions Diet: Diet as Tolerated Visit Report/Discharge Packet Instructions: DI for Atrial Flutter, Metoprolol, Rivaroxaban (By mouth) Discharge Data Primary Care Provider: Mainor Mason Attending Provider: Mainor Mason Admit Date/Time: 04/19/19 15:01 Discharges patient from system. Discharge Date/Time: 04/20/19 12:00 Quality VTE Deep Vein Thrombosis/Pulmonary Embolism Present on Admission: No
--- NOTE | 2019-04-20 08:57 | P.DS_ITS ---
History of Present Illness Chief complaint: Sent from [facility] possible clot in lung Narrative: Patient was seen in the clinic earlier today and felt to have possible pulmonary emboli based on symptoms presentation and prior history of same. He was transferred to that hospital emergency department for evaluation. In the ER he was found to be in new atrial fibrillation with seemingly least borderline controlled ventricular response as well as right-sided large pulmonary embolism. Patient also found to have hyperbilirubinemia without other abnormalities. Patient had had several days of right-sided chest pain a sense of shortness of breath despite normal numbers on evaluation. Had recently traveled to [facility]. Previously had a DVT diagnosed while in [place] diagnosed there. He had completed a several month course of anticoagulation had a workup for hypercoagulable state which was negative and had his anticoagulation discon tinued in early February of this year. Discharge Providers Date of admission: 04/19/19 15:01 Discharge Date: 04/20/19 Primary care physician: Mainor Mason MD Consults: 04/19/19 11:46 Consult to Respiratory Therapy Evaluate & Treat Comment: Physician Instructions: Evaluate and treat Discharge provider: Mainor Mason MD Summary Discharge Diagnosis: 1. Acute pulmonary embolism 2. Atrial fibrillation with rapid ventricular response 3. Atrial flutter with controlled ventricular response 4. BPH with LUTS 5. Hyperlipidemia 6. Hyperbilirubinemia, etiology not determined Hospital Course: Patient presented to the clinic who sent him to the emergency department with dyspnea, chest pain, cough and other symptoms consistent with pulmonary embolism. He was evaluated in the ER found to have a pulmonary emboli sm on the right side. He was anticoagulated with Lovenox and then oral anticoagulant. Patient was hemodynamically and cardiovascularly stable fortunately. He was not even hypoxic. Patient also was found to be in atrial fibrillation with rapid ventricular response initially. Patient's cardiac rh ythm switch between atrial fibrillation atrial flutter. He eventually converted back to sinus rhythm early in the morning of the day of discharge. He was really quite asymptomatic. Was minimally tachycardic with any of this with heart rate in the 110 range at maximum. Was started on a beta-hoa to help control his rate and rhythm and this will be continued at low dose upon discharge Given this is patient's 2nd thromboembolic event he will need to continue on long-term anticoagulation. He will be discharged to complete the usual immediate post pulmonary embolism course followed by long-term management. Patient would prefer not to be on warfarin because of the need for testing and his lifestyle which includes significant travel. He was started on Xarelto which he took previously for DVT. However this is quite expensive and depending on patient's out of pocket cost may be switched to Eliquis or Pradaxa long-term. This will require some investigation with patient's insurance and prescription coverage plan. Patient will be seen in the clinic to follow-up on his cardiac dysrhythmia his echocardiogram and his pulmonary embolism in about a week or 10 days time Status at Discharge Cognitive/behavioral status at discharge: at baseline, oriented Functional status at discharge: independent ambulation Overall status at discharge: patient is progressing back to baseline Time Spent with Patient Greater than 30 minutes Exam Vital Signs (past 8 hours): - 04/20/19 04:57 04/20/19 07:41 Temperature 97.4 F L 98.2 F Pulse Rate 59 L 69 Respiratory Rate 18 24 Blood Pressure 104/79 132/89 Pulse Oximetry 95 97 Oxygen Delivery Method Room Air Oxygen Flow Rate 0 Narrative Exam Narrative: HEENT-unremarkable, normocephalic atraumatic Neck-no lymphadenopathy no bruits Lungs-clear anteriorly and posteriorly no wheezes no crackles good breath sounds Heart-regular rate and rhythm, no murmur, rub, or gallop. normal S1-S2 Abdomen-positive bowel tones, soft, nontender, nondistended, no hepatosplenomegaly, no masses palpable Neuro-normal to screening exam, gait not tested Extremities-no cyanosis clubbing or edema Objective Labs Result Diagrams: 04/20/19 04:40 04/20/19 04:40 Labs: Laboratory Results - last 24 hr 04/19/19 04/19/19 04/19/19 11:45 11:45 11:45 WBC 15.5 H RBC 5.41 Hgb 17.0 Hct 50.1 MCV 92.6 MCH 31.5 MCHC 34.0 RDW 13.3 Plt Count 158 Neut % (Auto) 72.9 Lymph % (Auto) 13.9 L [place] % (Auto) 12.2 Eos % (Auto) 0.5 L Baso % (Auto) 0.5 Neut # (Auto) 81135 H Lymph # (Auto) 2200 [place] # (Auto) 1900 H Eos # (Auto) 100 Baso # (Auto) 100 Sodium 138 Potassium 4.2 Chloride 96 L Carbon Dioxide 26 BUN 20 Creatinine 0.90 Estimated GFR > 60.0 BUN/Creatinine Ratio 22.2 H Glucose 147 H Calcium 9.3 Magnesium 2.1 Total Bilirubin 2.8 H Direct Bilirubin AST 29 ALT 26 Alkaline Phosphatase 102 Total Creatine Kinase 67 CK-MB (CK-2) TNP CK-MB (CK-2) Rel Index TNP Troponin I 0.015 B-Natriuretic Peptide 392 H Total Protein 8.2 Albumin 4.3 Globulin 3.9 Albumin/Globulin Ratio 1.1 Nasal Screen MRSA (PCR) 04/19/19 04/19/19 04/20/19 11:45 15:23 04:40 WBC 11.0 RBC 4.76 Hgb 15.3 Hct 43.5 MCV 91.5 MCH 32.2 MCHC 35.2 RDW 13.3 Plt Count 145 L Neut % (Auto) 64.7 Lymph % (Auto) 20.2 L [place] % (Auto) 13.0 Eos % (Auto) 1.5 L Baso % (Auto) 0.6 Neut # (Auto) 7100 H Lymph # (Auto) 2200 [place] # (Auto) 1400 H Eos # (Auto) 200 Baso # (Auto) 100 Sodium Potassium Chloride Carbon Dioxide BUN Creatinine Estimated GFR BUN/Creatinine Ratio Glucose Calcium Magnesium Total Bilirubin Direct Bilirubin 0.9 H AST ALT Alkaline Phosphatase Total Creatine Kinase CK-MB (CK-2) CK-MB (CK-2) Rel Index Troponin I B-Natriuretic Peptide Total Protein Albumin Globulin Albumin/Globulin Ratio Nasal Screen MRSA (PCR) Negative for mrsa 04/20/19 04:40 WBC RBC Hgb Hct MCV MCH MCHC RDW Plt Count Neut % (Auto) Lymph % (Auto) [place] % (Auto) Eos % (Auto) Baso % (Auto) Neut # (Auto) Lymph # (Auto) [place] # (Auto) Eos # (Auto) Baso # (Auto) Sodium 135 L Potassium 3.9 Chloride 100 Carbon Dioxide 25 BUN 29 H Creatinine 0.80 Estimated GFR > 60.0 BUN/Creatinine Ratio 36.3 H Glucose 122 H Calcium 8.7 Magnesium Total Bilirubin Direct Bilirubin AST ALT Alkaline Phosphatase Total Creatine Kinase CK-MB (CK-2) CK-MB (CK-2) Rel Index Troponin I B-Natriuretic Peptide Total Protein Albumin Globulin Albumin/Globulin Ratio Nasal Screen MRSA (PCR) Discharge Plan Discharge Plan Patient Disposition: Home Discharge Med Rec/Prescriptions Prescriptions: Continued atorvastatin 20 mg tablet 20 mg PO DAILY Qty: 90 RF: 3 Vitamin D3 1 cap PO DAILY RF: 0 No Action Xarelto 15 mg tablet 15 mg PO BID Qty: 42 RF: 0 metoprolol succinate 25 mg tablet extended release 24 hr 25 mg PO DAILY Qty: 90 RF: 3 Follow up/Referrals: Mainor Mason MD [Primary Care Provider] - 04/29/19 3:00 pm (appt:04/29 @ 3:[address] mason please arrive 15minutes prior to your scheduled appointment 7-10 days) Provider Discharge Instructions Diet: Diet as Tolerated Visit Report/Discharge Packet Instructions: DI for Atrial Flutter, Metoprolol, Rivaroxaban (By mouth) Discharge Data Primary Care Provider: Mainor Mason Attending Provider: Mainor Mason Admit Date/Time: 04/19/19 15:01 Discharges patient from system. Discharge Date/Time: 04/20/19 12:00 Quality VTE Deep Vein Thrombosis/Pulmonary Embolism Present on Admission: No
--- NOTE | 2019-04-20 09:08 | DI.ECHO.S_ITS ---
[facility]---------[facility] +---------+ : : [address] : : : : [id number] : : : : Phone: [phone] Echocardiogram Report + + :Name: EAGLE RIVERA Study Date: 04/20/2019 Height: 69 in : :[facility] Weight: 203 lb : : Gender: Male BSA: 2.1 m2 : :: 1945 Age: 74 yrs BP: 132/89 mmHg: :Reason For Study: Pulmonary- Embolism : : Performed By: Violeta Chin : :Referring: FABIÁN HOLLIDAY R : + + Interpretation Summary 1) Normal left ventricular size, thickness, wall motion, and systolic function (EF 60-65%). 2) Borderline right ventricular enlargement with borderline reduced function. 3) There is mild to moderate tricuspid regurgitation. 4) The right ventricular systolic pressure is estimated to be at least 45 mmHg based on an estimated right atrial pressure of 8 mm Hg. 5) Compared to the Echo done 07/10/2017, systolic PA pressure has increased from 28mmHg to 45mmHg on this study and mild-moderate tricuspid is present due to borderline RV enlargement on this study. Procedure: A two-dimensional transthoracic echocardiogram with color flow and Doppler was performed. The study quality was technically adequate. Comparison is made with the echocardiogram of 07-10-17. The patient was in normal sinus rhythm during the exam. The patient had frequent PVCs during the exam. Left Ventricle: The left ventricle is normal in size, wall thickness, and systolic function without any focal wall motion abnormalities. The ejection fraction is estimated to be 60-65%. Diastolic parameters suggest a pseudonormalization pattern, consistent with probable elevated filling pressures. Right Ventricle: Borderline right ventricular enlargement. Right ventricular systolic function is borderline reduced. Atria: The left atrium is moderately dilated. The right atrium is mildly dilated. The interatrial septum is intact with no evidence for an atrial septal defect. Mitral Valve: The mitral valve is grossly normal. There is mild mitral regurgitation. Aortic Valve: The aortic valve is trileaflet. The aortic valve opens well. No aortic regurgitation is present. Tricuspid Valve: The tricuspid valve leaflets are thin and pliable. There is mild to moderate tricuspid regurgitation. The right ventricular systolic pressure is estimated to be at least 45 mmHg based on an estimated right atrial pressure of 8 mm Hg. Pulmonic Valve: The pulmonic valve is not well seen, but is grossly normal. There is trace pulmonic regurgitation. Great Vessels: The aortic root is normal size. The ascending aorta is at the upper limits of normal in size. The aortic arch is at the upper limits of normal in size. The IVC is dilated (diameter is greater than 2.1 cm) yet it collapses greater than 50% with a sniff. This suggests a right atrial pressure of 8 mm Hg. Pericardium/ Pleura There is no pericardial effusion. There is no pleural effusion. MMode/2D Measurements & Calculations LVIDd: 3.7 cm Ao root diam: 3.6 cm LVIDs: 2.1 cm Aortic Jxn: 3.1 cm FS: 45.1 % asc Aorta Diam: 3.9 cm EPSS: 0.96 cm Ao Arch Diam (Prox Trans): 3.2 cm IVSd: 0.84 cm LVPWd: 0.90 cm LV ramesh. diameter/BSA (cm/m^2): 1.8 LV sys. diameter/BSA (cm/m^2): 0.99 LA dimension: 4.9 cm RA long axis: 6.1 cm LA A2 area: 25.5 cm2 RA area: 23.3 cm2 LA A4 area: 28.5 cm2 RA vol: 74.8 ml LA length (vol): 6.7 cm RA : 36.0 ml/m2 LA vol: 91.6 ml IVC diam: 2.1 cm LA vol index: 44.1 ml/m2 RVDd major: 7.3 cm RVD1 (basal): 4.1 cm RVD2 (mid): 3.0 cm Doppler Measurements & Calculations Ao V2 max: 159.2 cm/sec MV E max ernie: 72.8 cm/sec Ao V2 mean: 97.3 cm/sec MV A max ernie: 36.4 cm/sec Ao max P.1 mmHg MV E/A: 2.0 Ao mean P.6 mmHg Med Peak E' Ernie: 5.8 cm/sec Ao V2 VTI: 29.7 cm E/E' med: 12.6 Lat Peak E' Ernie: 8.5 cm/sec E/E' lat: 8.5 E/e' average: 10.6 MV dec time: 0.23 sec MV P1/2t: 68.9 msec TR max ernie: 302.9 cm/sec MV P1/2t max ernie: 73.1 cm/sec TR max P.7 mmHg MVA(P1/2t): 3.2 cm2 PA V2 max: 72.0 cm/sec PA V2 mean: 46.4 cm/sec PA mean P.0 mmHg PA Accel Time: 0.13 sec Reading Physician:12:19 PM
--- NOTE | 2019-04-20 11:20 | PC.NURSE ---
preparing for discharge to home following echocardiogram which is now complete- rx for metoprolol and xarelto reviewed and explained to both pt and his -
== END 2019-04-20 12:00 | disposition home or self-care (01) | DRG 176 ==
LOC: ED 14:27 → ICU 15:02
PROVIDERS: Admitting Provider Internal Medicine; Emergency Provider Internal Medicine; PCP Internal Medicine; Visit Provider Internal Medicine
DX: I26.99 Other pulmonary embolism without acute cor pulmonale (principal); I48.92 Unspecified atrial flutter; I48.91 Unspecified atrial fibrillation; E78.5 Hyperlipidemia, unspecified; E80.6 Other disorders of bilirubin metabolism; Z86.718 Personal history of other venous thrombosis and embolism
CPT/HCPCS: 36415; 36591; 71045; 71275; 74177; 80048; 80053; 82248; 82550; 83735; 83880; 84484; 85025; 87797; 93005; 93306; 94760; 99223; 99238; 99283; 99284; J1650; J1885; Q9967

== ENCOUNTER → 2019-07-06 14:36 | Outpatient (CLI) | payer MEDICARE, OTHER, SELFPAY ==
[2019-04-19 15:12] VITALS: BMI 30.5
[2019-07-06 15:33] LABS: Add Manual Diff / Slide Review NO; Basophils Absolute Auto 0 /uL (0-100); Basophils Percent Auto 0.5 % (0-2); Eosinophils Absolute Auto 300 /uL (0-450); Eosinophils Percent Auto 4.8 % (2-4); Hematocrit 45.7 % (41-53); Hemoglobin 15.6 g/dL (13.5-17.5); Lymphocytes Absolute Auto 2900 /uL (1100-4500); Lymphocytes Percent Auto 42.8 % (25-40); Mean Corpuscular HGB Conc 34.2 % (30-36); Mean Corpuscular Hemoglobin 31.2 PG (26-34); Mean Corpuscular Volume 91.4 fL (80-100); Monocytes Absolute Auto 500 /uL (0-900); Monocytes Percent Auto 7.9 % (3-14); Neutrophils Absolute Auto 3000 /uL (1500-7000); Platelet Count 140 X10^3/uL (150-400); Red Cell Distribution Width 13.6 % (11.6-14.8); White Blood Cell Count 6.8 X10^3/uL (4.5-11.0)
[2019-07-06 16:04] LABS: HEMOLYSIS < 15 (0-50); Iron 101 ug/dL (49-181)
[2019-07-06 16:06] LABS: Alanine Aminotransferase 30 IU/L (21-72); Albumin 4.2 g/dL (3.5-5.0); Albumin Globulin Ratio 1.7 (1.0-2.8); Alkaline Phosphatase 84 U/L (38-126); Aspartate Aminotransferase 26 IU/L (17-59); Bilirubin Total 0.8 mg/dL (0.2-1.3); Blood Urea Nitrogen 21 mg/dL (9-20); Calcium 9.5 mg/dL (8.4-10.2); Carbon Dioxide 25 mmol/L (22-32); Chloride 103 mmol/L (98-107); Estimated Glomerular Filt Rate > 60.0 mL/min (>60); Globulin 2.5 g/dL (1.7-4.1); Glucose 135 mg/dL (80-110); HEMOLYSIS < 15 (0-50); Potassium 4.1 mmol/L (3.4-5.1); Sodium 140 mmol/L (137-145); Total Protein 6.7 g/dL (6.3-8.2)
[2019-07-06 16:14] LABS: Percent Iron Saturation 33 % (20-50); Total Iron Binding Capacity 305 ug/dL (261-462); Transferrin 248 mg/dL (206-381)
[2019-07-06 16:35] LABS: Hepatitis B Surface Antigen NEGATIVE s/c (NEGATIVE)
[2019-07-06 16:56] LABS: Hep C Virus Ab w/Reflex Quant NEGATIVE s/c (NEGATIVE)
[2019-07-09 21:26] LABS: ANA Screen, IFA NEGATIVE (NEGATIVE)
[2019-07-09 22:16] LABS: Testosterone Free 37.8 pg/mL (30.0-135.0); Testosterone Total 516 ng/dL (250-1100)
[2019-07-13 13:02] LABS: Hepatitis B Core Antibody Nonreactive (Nonreactive)
[2019-07-14 10:02] LABS: Hepatitis B Surf AB Imm QUANT < 5 mIU/mL (> 9)
[2019-07-17 15:18] LABS: Hepatitis A Ab IgM Nonreactive (Nonreactive); Hepatitis A Ab Total Reactive (Nonreactive)
== END ==
PROVIDERS: PCP Internal Medicine; Visit Provider Internal Medicine
DX: R53.81 Other malaise (principal)
CPT/HCPCS: 36415; 80053; 83516; 83540; 83550; 84402; 84403; 85025; 86038; 86317; 86704; 86803; 87340

== ENCOUNTER → 2019-07-07 14:09 | Outpatient (CLI) | payer MEDICARE, OTHER, SELFPAY ==
[2019-04-19 15:12] VITALS: BMI 30.5
[2019-07-09 23:25] LABS: Fecal Immunochemical Test NOT DETECTED (NOT DETECTED)
== END ==
PROVIDERS: PCP Internal Medicine; Visit Provider Internal Medicine Gastroenterology
DX: Z01.89 Encounter for other specified special examinations (principal)
CPT/HCPCS: 82274

== ENCOUNTER → 2019-09-07 12:00 | Outpatient (CLI) | payer MEDICARE, OTHER, SELFPAY ==
[2019-04-19 15:12] VITALS: BMI 30.5
[2019-09-07 13:39] LABS: Alanine Aminotransferase 32 IU/L (<50); Albumin 4.2 g/dL (3.5-5.0); Albumin Globulin Ratio 1.5 (1.0-2.8); Alkaline Phosphatase 86 U/L (38-126); Aspartate Aminotransferase 30 IU/L (17-59); Bilirubin Total 1.1 mg/dL (0.2-1.3); Bilirubin Unconjugated 0.9 mg/dL (0.0-1.1); Globulin 2.8 g/dL (1.7-4.1); HEMOLYSIS < 15 (0-50)
== END ==
PROVIDERS: PCP Internal Medicine; Visit Provider Internal Medicine Gastroenterology
DX: R94.5 Abnormal results of liver function studies (principal)
CPT/HCPCS: 36415; 80076

== ENCOUNTER 2019-11-30 05:57 | Emergency (ER) | payer MEDICARE, OTHER, SELFPAY ==
[2019-10-07 16:29] VITALS: BMI 30.5
[2019-11-30 06:19] VITALS: BP 173/91; PULSE 55; RESP 18; TEMP 36.9; O2SAT 96; BMI 34.9
--- NOTE | 2019-11-30 06:25 | ED_ITS ---
HPI - Neuro Symptoms/Deficit General Chief Complaint: Neuro Symptoms/Deficit Stated Complaint: coordination is off Time Seen by Provider: 11/30/19 06:24 Source: patient and family Mode of arrival: Ambulatory Limitations: no limitations History of Present Illness HPI Narrative: This is a 74-year-old male who comes to the emergency department with complaint of feeling like his gait is a little off. Patient and his have slightly different thoughts on how much his gait and movement and coordination is off. His states that he was very weak this morning and had difficulty even getting out of better getting dressed. Patient minimizes his symptoms. They both state he has been having symptoms for about 2-3 days. He has complained of a mild headache. No vision changes, no dysarthria of speech changes which his also does not note any changes. He denies any chest pain or pressure, no shortness of breath, no nausea vomiting. He has not had any diarrhea or constipation. He has had some urinary frequency but no dysuria or incontinence. He denies any weakness in his extremities but does feel like he is having some trouble getting up and down stairs and walking. He does take Xarelto daily for history of blood clots, he is also on metoprolol and takes atorvastatin. He denies any prior surgical history. No allergies to medications. No tobacco, occasional alcohol, no illicit. Per patient and family he did have a snowboarding accident where a snow boarder hit him and he did fall break some ribs it is unclear if he hit his head or had a CT scan of his head at this time although according to him and his family it sounds like he probably did and they were told that he had no issues with his head. On Anticoagulants: Yes (xeralto) Related Data Home Medications Medication Instructions Recorded Confirmed Vitamin D3 1 cap PO DAILY 04/19/19 10/12/19 Previous Rx's Medication Instructions Recorded atorvastatin 20 mg tablet See Rx Instructions .ROUTE 05/31/19 .COMPLEX #90 tablet rivaroxaban 20 mg tablet 20 mg PO DAILY #90 tab 07/06/19 metoprolol succinate 25 mg 25 mg PO DAILY #90 tab 10/16/19 tablet,extended release 24 hr Allergies Allergy/AdvReac Type Severity Reaction Status Date / Time No Known Drug Allergies Allergy Verified 11/30/19 06:22 Review of Systems Review of Systems ROS Unobtainable: All systems reviewed & are unremarkable except as noted in HPI and below Patient History Medical History BPH w urinary obs/LUTS (Chronic 10/27/03) History of DVT of lower extremity (Resolved) Measles (Resolved ~1950) Mixed hyperlipidemia (Chronic 06/01/02) Mumps (Resolved) Social History household members: spouse Smoking Status: Never smoker alcohol intake: current Smoking Status: Never smoker alcohol intake frequency: 0-2 drinks per day Substance Use Type: does not use Exam Narrative Exam Narrative: GEN: well nourished, well appearing male, alert and oriented x story, patient appears to be in mild distress. HEENT: Atraumatic, pupils are equal round reactive to light, extraocular movements are intact, nares are clear, TMs are clear with no fluid, there is no conjunctival pallor. Throat is clear without any exudates, erythema, tonsillar enlargement or uvular deviation, no facial droop appreciated. No dysarthria. HEART: Regular rate and rhythm without murmur, clicks, rubs. LUNGS:Lungs clear to auscultation, no wheezes, rales, crackles, chest moves symmetrically ABD:bowel sounds normal, soft, non-tender, no guarding, rebound, rigidity, no masses noted, no hepatosplenomegaly :No CVA tenderness MSCL: Non-tender, no muscle atrophy. NEURO:CN 2-12 intact, sensation normal, reflexes 2/4 upper and lower extremities. finger nose finger test normal, heel deleon test normal. Gait shuffling. Initial Vital Signs Initial Vital Signs: Vital Signs Temperature 98.4 F 11/30/19 06:19 Pulse Rate 55 L 11/30/19 06:19 Respiratory Rate 18 11/30/19 06:19 Blood Pressure 173/91 H 11/30/19 06:19 Pulse Oximetry 96 11/30/19 06:19 Scores NIH Stroke Scale Level of Conciousness: Alert, keenly responsive Ask month/age: Answers both questions correctly. Open/close eyes, close hand: Performs both tasks correctly Best gaze horizontal: Normal Visual jamison: No visual loss Facial palsy: Normal symetrical movement Left arm drift: No drift for full 10 sec Right arm drift: No drift for full 10 sec Left leg drift: No drift for full 10 sec Right leg drift: No drift for full 10 sec Limb ataxia: Absent Sensory on face/arms/legs: Normal, no sensory loss Best language: No aphasia, normal Dysarthria: Normal Extinction or inattention: No abnormality Total NIH Stroke scale score: 0 Course Orders Ordered: ED Orders 11/30/19 06:19 EKG-12 Lead Stat 11/30/19 06:30 Basic Metabolic Panel Stat Complete Blood Count AUTO DIFF Stat Ethanol (ETOH) Stat Partial Thromboplastin Time Stat Prothrombin Time INR Stat Troponin & CK Cardiac Panel Stat 11/30/19 06:46 CT Stroke Stat 11/30/19 07:00 Urinalysis and Microscopic Stat Urine Drug Screen, Rapid Stat Sodium Chloride (Normal Saline 0.9%) 1,000 mls @ 150 mls/hr IV CONT JANELLE Last Admin: 11/30/19 07:11 Dose: 150 mls/hr Documented by: DANILO Discontinued Medications Prothrombin Complex Concent ( Human) 2,000 unit/Miscellaneous 80 mls @ 685.829 mls/hr IV NOW ONE; Protocol Stop: 11/30/19 07:20 Vital Signs Vital signs: Vital Signs - 8 hr 11/30/19 06:19 11/30/19 07:05 Temperature 98.4 F Pulse Rate 55 L 51 L Respiratory Rate 18 Blood Pressure 173/91 H Blood Pressure [Right Arm] 147/82 H Pulse Oximetry 96 MDM - Neuro Symptoms/Deficit Lab Data Attestation: I reviewed the patient's lab results. Result diagrams: 11/30/19 06:30 11/30/19 06:30 Labs: Lab Results 11/30/19 11/30/19 11/30/19 Range/Units 06:30 06:30 06:30 WBC 6.3 (4.5-11.0) X10^3/uL RBC 4.88 (4.5-5.9) X10^6/uL Hgb 15.1 (13.5-17.5) g/dL Hct 44.9 (41-53) % MCV 92.0 (80-100) fL MCH 31.0 (26-34) PG MCHC 33.7 (30-36) % RDW 13.7 (11.6-14.8) % Plt Count 140 L (150-400) X10^3/uL Neut % (Auto) 36.2 L (50-75) % Lymph % (Auto) 45.4 H (25-40) % [place] % (Auto) 8.2 (3-14) % Eos % (Auto) 9.3 H (2-4) % Baso % (Auto) 0.9 (0-2) % Neut # (Auto) 2300 (5556-6805) /uL Lymph # (Auto) 2800 (2511-8049) /uL [place] # (Auto) 500 (0-900) /uL Eos # (Auto) 600 H (0-450) /uL Baso # (Auto) 100 (0-100) /uL PT 15.5 H (10.1-12.7) SECONDS INR 1.3 (0.9-1.3) APTT 34 (26.4-36.2) SECONDS Sodium 140 (137-145) mmol/L Potassium 4.0 (3.4-5.1) mmol/L Chloride 107 (98-107) mmol/L Carbon Dioxide 25 (22-32) mmol/L BUN 19 (9-20) mg/dL Creatinine 0.91 (0.66-1.25) mg/dL Estimated GFR > 60.0 (>60) mL/min BUN/Creatinine Ratio 20.9 (6-22) Glucose 120 H (80-110) mg/dL Calcium 9.3 (8.4-10.2) mg/dL Total Creatine Kinase 150 (55-170) U/L CK-MB (CK-2) 3.19 H (<2.37) ng/mL CK-MB (CK-2) Rel Index 2.1 (1.5-5.0) % Troponin I < 0.012 (0.01-0.034) ng/mL Urine Color Urine Appearance Urine pH (4.5-8.0) Ur Specific [place] (1.000-1.035) Urine Protein (Negative) Urine Glucose (UA) (Negative) g/dL Urine Ketones (NEGATIVE) Urine Occult Blood (Negative) Urine Nitrate (Negative) Urine Bilirubin (NEGATIVE) Urine Urobilinogen (0.2) E.U./dL Ur Leukocyte Esterase (NEGATIVE) Urine RBC (0-5/HPF) Urine WBC (0-5/HPF) Urine Bacteria (None) Ur Culture Indicated? U Opiates 300ng/mL cut (Negative) Ur Oxycodone Screen (Negative) Urine Methadone Screen (Negative) Ur Barbiturates Screen (Negative) U Tricyclic Antidepress (Negative) Ur Phencyclidine Scrn (Negative) Ur Amphetamines Screen (Negative) U Methamphetamines Scrn (Negative) Ur MDMA Scrn (Ecstasy) (Negative) U Benzodiazepines Scrn (Negative) Urine Cocaine Screen (Negative) U Marijuana (THC) Screen (Negative) Ethyl Alcohol < 10 ( - 10) mg/dL 11/30/19 11/30/19 Range/Units 07:00 07:00 WBC (4.5-11.0) X10^3/uL RBC (4.5-5.9) X10^6/uL Hgb (13.5-17.5) g/dL Hct (41-53) % MCV (80-100) fL MCH (26-34) PG MCHC (30-36) % RDW (11.6-14.8) % Plt Count (150-400) X10^3/uL Neut % (Auto) (50-75) % Lymph % (Auto) (25-40) % [place] % (Auto) (3-14) % Eos % (Auto) (2-4) % Baso % (Auto) (0-2) % Neut # (Auto) (2937-8986) /uL Lymph # (Auto) (6586-2836) /uL [place] # (Auto) (0-900) /uL Eos # (Auto) (0-450) /uL Baso # (Auto) (0-100) /uL PT (10.1-12.7) SECONDS INR (0.9-1.3) APTT (26.4-36.2) SECONDS Sodium (137-145) mmol/L Potassium (3.4-5.1) mmol/L Chloride (98-107) mmol/L Carbon Dioxide (22-32) mmol/L BUN (9-20) mg/dL Creatinine (0.66-1.25) mg/dL Estimated GFR (>60) mL/min BUN/Creatinine Ratio (6-22) Glucose (80-110) mg/dL Calcium (8.4-10.2) mg/dL Total Creatine Kinase (55-170) U/L CK-MB (CK-2) (<2.37) ng/mL CK-MB (CK-2) Rel Index (1.5-5.0) % Troponin I (0.01-0.034) ng/mL Urine Color Yellow Urine Appearance Clear Urine pH 6.5 (4.5-8.0) Ur Specific [place] 1.020 (1.000-1.035) Urine Protein Negative (Negative) Urine Glucose (UA) Negative (Negative) g/dL Urine Ketones Negative (NEGATIVE) Urine Occult Blood Negative (Negative) Urine Nitrate Negative (Negative) Urine Bilirubin Negative (NEGATIVE) Urine Urobilinogen 0.2 (0.2) E.U./dL Ur Leukocyte Esterase Negative (NEGATIVE) Urine RBC 0-1/hpf (0-5/HPF) Urine WBC 0-1/hpf (0-5/HPF) Urine Bacteria Occasional (0-1) (None) Ur Culture Indicated? Cult not indicated U Opiates 300ng/mL cut Negative (Negative) Ur Oxycodone Screen Negative (Negative) Urine Methadone Screen Negative (Negative) Ur Barbiturates Screen Negative (Negative) U Tricyclic Antidepress Negative (Negative) Ur Phencyclidine Scrn Negative (Negative) Ur Amphetamines Screen Negative (Negative) U Methamphetamines Scrn Negative (Negative) Ur MDMA Scrn (Ecstasy) Negative (Negative) U Benzodiazepines Scrn Negative (Negative) Urine Cocaine Screen Negative (Negative) U Marijuana (THC) Screen Negative (Negative) Ethyl Alcohol ( - 10) mg/dL Imaging Data CT scan - head: Radiologist's Impression: Large left subdural hematoma measuring 2.1 cm in maximum transverse dimension with involuting blood product suggesting the hematoma is subacute shift in midline structures to the right measures 1.4 cm, mild effacement of the left lateral ventricle. Results called to myself by radiology. ECG Data Attestation: I personally reviewed and interpreted this ECG as follows: Prior ECG tracings: available for review Interpretation: Sinus bradycardia with first-degree AV block rate of 50, P are interval of 211, QRS of 90 and QTC of 436. No ST elevation or depression, nonspecific change. Patient has prior EKG from 04/19/2019 which appears similar. MDM Narrative Medical decision making narrative: Spoke with family and patient they are open to intervention if recommended. Patient is on anticoagulation, discussed with transfer center. Discussed with Dr. Luevano accepting physician for [facility] ER regarding reversal of anticoagulation and usage of Kcentra for Xarelto. Patient has remote history in the last 4-6 weeks of being hit by a snowboarder and having several rib fractures. Recommendations include Kcentra 2000 units as per [facility] and [facility] guidelines for was are still of Xarelto. We discussed will not give mannitol at this time as patient is not acutely neurologically do tear eating. Critical Care Time Critical Care Time Critical Care Time: Yes Total Critical Care Time: 99 Attestation: The high probability of a clinically significant, sudden or life threatening deterioration of the [neurologic,cardiac] system(s) required my full and direct attention, intervention and personal management. The aggregate critical care time was [99] minutes. This time is in addition to time spent performing reported procedures but includes the following: [x] Data Review and interpretation [x] Patient assessment and monitoring of vital signs [x] Documentation [x] Medication orders and management Discharge Plan Departure Patient Disposition: [facility] Clinical Impression: Subdural bleeding Prescriptions: No Action atorvastatin 20 mg tablet See Rx Instructions .ROUTE .COMPLEX Qty: 90 RF: 3 metoprolol succinate 25 mg tablet extended release 24 hr 25 mg PO DAILY Qty: 90 RF: 3 Xarelto 20 mg tablet 20 mg PO DAILY Qty: 90 RF: 3 Vitamin D3 1 cap PO DAILY RF: 0 Referrals: Mainor Balderas MD [Primary Care Provider] -
[2019-11-30 06:42] LABS: Add Manual Diff / Slide Review NO; Basophils Absolute Auto 100 /uL (0-100); Basophils Percent Auto 0.9 % (0-2); Eosinophils Absolute Auto 600 /uL (0-450); Eosinophils Percent Auto 9.3 % (2-4); Hematocrit 44.9 % (41-53); Hemoglobin 15.1 g/dL (13.5-17.5); Lymphocytes Absolute Auto 2800 /uL (1100-4500); Lymphocytes Percent Auto 45.4 % (25-40); Mean Corpuscular HGB Conc 33.7 % (30-36); Monocytes Absolute Auto 500 /uL (0-900); Monocytes Percent Auto 8.2 % (3-14); Neutrophils Absolute Auto 2300 /uL (1500-7000); Neutrophils Percent Auto 36.2 % (50-75); Platelet Count 140 X10^3/uL (150-400); Red Blood Cell Count 4.88 X10^6/uL (4.5-5.9); Red Cell Distribution Width 13.7 % (11.6-14.8); White Blood Cell Count 6.3 X10^3/uL (4.5-11.0)
--- NOTE | 2019-11-30 06:46 | DI.CT.S_ITS ---
PROCEDURE: CT STROKE INDICATIONS: coordination and gait off, NIH negative otherwise. TECHNIQUE: Noncontrast 4.5 mm thick angled axial sections acquired from the foramen magnum to the vertex, with coronal reformats. For radiation dose reduction, the following was used: automated exposure control, adjustment of mA and/or kV according to patient size. COMPARISON: None. FINDINGS: Image quality: Excellent. CSF spaces: There is a mixed acute/subacute and chronic subdural hematoma in the left cerebral convexity measuring 2.1 cm in thickness and 13.7 cm longitudinal. There is mass effect to the left hemisphere causing 14 mm rightward midline shift. There is compression of the left lateral ventricle. Brain: No intracranial masses. There is cerebral volume loss for age, with resultant ventricular and sulcal prominence. There are mild periventricular and deep white matter chronic small vessel ischemic changes. There is intracranial internal carotid artery atherosclerosis. Skull and face: Calvarium and visualized facial bones appear intact, without suspicious lesions. Sinuses: Visualized sinuses and mastoids are clear. IMPRESSION: A large mixed acute/subacute and chronic subdural hematoma in the left cerebral convexity with mass effect to the left hemisphere causing 14 mm rightward midline shift consistent with subfalcine herniation. No significant discrepancy with the manufacturing supervisor 2nd shift radiology preliminary report. This study fulfills neurological imaging criteria for inclusion or exclusion of acute stroke therapies based on available published neurological guidelines. Dictated by: Vane Guillory M.D. on 11/30/2019 at 7:25 Approved by: Vane Guillory M.D. on 11/30/2019 at 7:31
[2019-11-30 06:48] LABS: INR 1.3 (0.9-1.3); Prothrombin Time 15.5 SECONDS (10.1-12.7)
[2019-11-30 06:50] LABS: PTT Partial Thromboplastin Tim 34 SECONDS (26.4-36.2)
[2019-11-30 06:52] LABS: BUN Creatinine Ratio 20.9 (6-22); Blood Urea Nitrogen 19 mg/dL (9-20); Calcium 9.3 mg/dL (8.4-10.2); Carbon Dioxide 25 mmol/L (22-32); Chloride 107 mmol/L (98-107); Creatine Kinase 150 U/L (55-170); Estimated Glomerular Filt Rate > 60.0 mL/min (>60); Ethanol (ETOH) < 10 mg/dL; Glucose 120 mg/dL (80-110); HEMOLYSIS < 15 (0-50); Sodium 140 mmol/L (137-145)
[2019-11-30 07:03] LABS: Troponin I < 0.012 ng/mL (0.01-0.034)
[2019-11-30 07:05] VITALS: BP 147/82; PULSE 51
[2019-11-30 07:06] LABS: CKMB % Relative Index 2.1 % (1.5-5.0); Creatine Kinase MB 3.19 ng/mL (<2.37)
[2019-11-30] MEDS: SODIUM CHLORIDE 0.9% 1,000 ML 150 ML IV (07:11)
[2019-11-30 07:20] LABS: Appearance Urine UA CLEAR; Bilirubin Urine UA NEGATIVE (NEGATIVE); Color Urine UA YELLOW; Glucose Urine UA NEGATIVE (Negative); Ketones Urine UA NEGATIVE (NEGATIVE); Leukocyte Esterase Urine UA NEGATIVE (NEGATIVE); Nitrite Urine UA NEGATIVE (Negative); Occult Blood Urine UA NEGATIVE (Negative); Protein Urine UA NEGATIVE (Negative); Urobilinogen Urine UA 0.2 E.U./dL (0.2); pH Urine UA 6.5 (4.5-8.0)
[2019-11-30 07:26] LABS: Ur Creatinine Normal (Normal); Ur Specific Gravity Normal (Normal); Urine pH Normal (Normal)
[2019-11-30 07:27] LABS: UR Morphine/Opiate cutoff 300 Negative (Negative); Urine Amphetamines Negative (Negative); Urine Barbiturates Negative (Negative); Urine Benzodiazepines Negative (Negative); Urine Cocaine Negative (Negative); Urine MDMA Negative (Negative); Urine Methadone Negative (Negative); Urine Methamphetamines Negative (Negative); Urine Oxycodone Negative (Negative); Urine Phencyclidine Negative (Negative); Urine Tetrahydrocannabinol Negative (Negative); Urine Tricyclic Antidepressant Negative (Negative)
[2019-11-30 07:30] LABS: Bacteria Urine Occasional (0-1); Culture Indicated Urine Cult Not Indicated; RBC Urine 0-1/HPF (0-5/HPF); WBC Urine 0-1/HPF (0-5/HPF)
[2019-11-30] MEDS: PROTHROMBIN CPLX(PCC)4FACT 2,000 UNIT in ISOOSMOTIC VEHICLE 0 ML 685.829 ML IV (07:47)
--- NOTE | 2019-11-30 07:57 | PC.NURSE ---
NS to continue in transport
[2019-11-30 08:14] VITALS: BP 147/82; PULSE 51; RESP 16; O2SAT 99
== END 2019-11-30 08:16 | disposition short-term general hospital (02) ==
PROVIDERS: Emergency Provider Emergency Medicine; PCP Internal Medicine
DX: S06.5X0A Traumatic subdural hemorrhage without loss of consciousness, initial encounter (principal); E78.5 Hyperlipidemia, unspecified; Z79.01 Long term (current) use of anticoagulants
CPT/HCPCS: 36415; 70450; 80048; 80305; 80320; 81001; 82550; 82553; 84484; 85025; 85610; 85730; 93005; 93010; 96361; 96374; 99285; 99291; 99292; C9132

== ENCOUNTER → 2020-07-14 10:59 | Outpatient (CLI) | payer MEDICARE, OTHER, SELFPAY ==
[2019-10-07 16:29] VITALS: BMI 30.5
[2020-07-14 12:57] LABS: Alanine Aminotransferase 29 IU/L (<50); Albumin 4.1 g/dL (3.5-5.0); Albumin Globulin Ratio 1.5 (1.0-2.8); Alkaline Phosphatase 78 U/L (38-126); Aspartate Aminotransferase 29 IU/L (17-59); Bilirubin Total 0.9 mg/dL (0.2-1.3); Bilirubin Unconjugated 0.8 mg/dL (0.0-1.1); Globulin 2.7 g/dL (1.7-4.1); HEMOLYSIS < 15 (0-50); Total Protein 6.8 g/dL (6.3-8.2)
== END ==
PROVIDERS: PCP Internal Medicine; Referring Provider Internal Medicine Gastroenterology; Visit Provider Internal Medicine Gastroenterology
DX: R17 Unspecified jaundice (principal)
CPT/HCPCS: 36415; 80076

== ENCOUNTER → 2020-10-27 10:04 | Outpatient (CLI) | payer MEDICARE, OTHER, SELFPAY ==
[2019-10-07 16:29] VITALS: BMI 30.5
[2020-10-27 11:21] LABS: Alanine Aminotransferase 63 IU/L (<50); Albumin 3.9 g/dL (3.5-5.0); Albumin Globulin Ratio 1.4 (1.0-2.8); Alkaline Phosphatase 87 U/L (38-126); Aspartate Aminotransferase 51 IU/L (17-59); Bilirubin Total 0.8 mg/dL (0.2-1.3); Bilirubin Unconjugated 0.9 mg/dL (0.0-1.1); Globulin 2.8 g/dL (1.7-4.1); HEMOLYSIS < 15 (0-50); Total Protein 6.7 g/dL (6.3-8.2)
== END ==
PROVIDERS: PCP Internal Medicine; Referring Provider Internal Medicine Gastroenterology; Visit Provider Internal Medicine Gastroenterology
DX: Z01.89 Encounter for other specified special examinations (principal)
CPT/HCPCS: 36415; 80076; 82248

== ENCOUNTER → 2021-03-13 10:44 | Outpatient (CLI) | payer MEDICARE, OTHER, SELFPAY ==
[2019-10-07 16:29] VITALS: BMI 30.5
[2021-03-13 12:12] LABS: Alanine Aminotransferase 24 IU/L (<50); Albumin 4.2 g/dL (3.5-5.0); Albumin Globulin Ratio 1.4 (1.0-2.8); Alkaline Phosphatase 81 U/L (38-126); Aspartate Aminotransferase 32 IU/L (17-59); Bilirubin Total 1.1 mg/dL (0.2-1.3); Bilirubin Unconjugated 0.9 mg/dL (0.0-1.1); HEMOLYSIS < 15 (0-50); Total Protein 7.2 g/dL (6.3-8.2)
== END ==
PROVIDERS: PCP Internal Medicine; Referring Provider Internal Medicine Gastroenterology; Visit Provider Internal Medicine Gastroenterology
DX: R94.5 Abnormal results of liver function studies (principal)
CPT/HCPCS: 36415; 80076

== ENCOUNTER → 2021-06-06 07:12 | Outpatient (CLI) | payer MEDICARE, OTHER, SELFPAY ==
[2019-10-07 16:29] VITALS: BMI 30.5
[2021-06-06 08:39] LABS: Add Manual Diff / Slide Review NO; Basophils Absolute Auto 0 /uL (0-100); Basophils Percent Auto 0.5 % (0-2); Eosinophils Absolute Auto 400 /uL (0-450); Eosinophils Percent Auto 5.6 % (2-4); Hematocrit 45.8 % (41-53); Hemoglobin 15.8 g/dL (13.5-17.5); Lymphocytes Absolute Auto 2900 /uL (1100-4500); Lymphocytes Percent Auto 39.9 % (25-40); Mean Corpuscular HGB Conc 34.5 % (30-36); Mean Corpuscular Hemoglobin 31.8 PG (26-34); Mean Corpuscular Volume 92.2 fL (80-100); Monocytes Absolute Auto 600 /uL (0-900); Neutrophils Absolute Auto 3400 /uL (1500-7000); Platelet Count 127 X10^3/uL (150-400); Red Blood Cell Count 4.97 X10^6/uL (4.5-5.9); Red Cell Distribution Width 13.1 % (11.6-14.8); White Blood Cell Count 7.3 X10^3/uL (4.5-11.0)
[2021-06-06 08:59] LABS: Alanine Aminotransferase 31 IU/L (<50); Albumin 4.2 g/dL (3.5-5.0); Albumin Globulin Ratio 1.6 (1.0-2.8); Alkaline Phosphatase 86 U/L (38-126); Aspartate Aminotransferase 28 IU/L (17-59); BUN Creatinine Ratio 24.4 (6-22); Bilirubin Total 1.1 mg/dL (0.2-1.3); Blood Urea Nitrogen 20 mg/dL (9-20); Calcium 9.2 mg/dL (8.4-10.2); Carbon Dioxide 29 mmol/L (22-32); Chloride 104 mmol/L (98-107); Cholesterol 141 mg/dL (140-199); Estimated Glomerular Filt Rate > 60.0 mL/min (>60); Globulin 2.6 g/dL (1.7-4.1); Glucose 103 mg/dL (80-110); HDL Cholesterol 45 mg/dL (40-60); HEMOLYSIS < 15 (0-50); LDL Cholesterol Calculated 81 mg/dL (<100); Potassium 4.2 mmol/L (3.4-5.1); Sodium 139 mmol/L (137-145); Total Protein 6.8 g/dL (6.3-8.2); Triglycerides 76 mg/dL (35-150)
== END ==
PROVIDERS: PCP Internal Medicine; Referring Provider Internal Medicine; Visit Provider Internal Medicine
DX: E78.2 Mixed hyperlipidemia (principal); E55.9 Vitamin D deficiency, unspecified; I48.0 Paroxysmal atrial fibrillation; Z86.718 Personal history of other venous thrombosis and embolism
CPT/HCPCS: 36415; 80053; 80061; 82306; 85025

== ENCOUNTER → 2021-06-07 08:22 | Outpatient (CLI) | payer MEDICARE, OTHER, SELFPAY ==
[2019-10-07 16:29] VITALS: BMI 30.5
[2021-06-08 12:22] LABS: SARS CoV19 IgG Negative (Negative)
[2021-06-10 17:08] LABS: SARS CoV19 IgA Negative (Negative)
== END ==
PROVIDERS: PCP Internal Medicine; Visit Provider Internal Medicine
DX: B34.9 Viral infection, unspecified (principal)
CPT/HCPCS: 86769

== ENCOUNTER 2021-08-20 07:14 | Observation (INO) | payer MEDICARE, OTHER, SELFPAY ==
[2019-10-07 16:29] VITALS: BMI 30.5
[2021-08-20] VITALS (26 sets, daily range): BP systolic 108–197; BP diastolic 57–91; PULSE 41–54; RESP 16–26; TEMP 36.4–37.2; O2SAT 93–98; BMI 30.7
--- NOTE | 2021-08-20 07:31 | DI.RAD.S_ITS ---
PROCEDURE: XR CHEST 1V INDICATIONS: Dizziness TECHNIQUE: One view of the chest was acquired. COMPARISON: CT, CT ANGIO CHEST PE PROTOCOL, 04/19/2019, 12:40. [facility], CR, XR CHEST 1V, 04/19/2019, 12:01. [facility], CR, CHEST 1 VIEW, 06/13/2017, 15:12. FINDINGS: Surgical changes and devices: None. Lungs and pleura: No consolidation. Right lung base pulmonary nodule appears unchanged compared to 2017. Alternatively, this could be a prominent vessel. No pleural effusions or pneumothorax. Mediastinum: Mediastinal contours appear unchanged. Heart size is enlarged. Bones and chest wall: No suspicious bony lesions. Overlying soft tissues appear unremarkable. IMPRESSION: No acute cardiopulmonary abnormality. Dictated by: Randal Herrera M.D. on 08/20/2021 at 8:05 Approved by: Randal Herrera M.D. on 08/20/2021 at 8:08
--- NOTE | 2021-08-20 07:32 | ED.DIZZY ---
HPI - Dizziness General Chief Complaint: Syncope Stated Complaint: feeling faint/dizzy x4 hours Time Seen by Provider: 08/20/21 07:20 History of Present Illness HPI Narrative: Patient with bed at 9:30 a.m. last night without any complaints. Awoke at 3:00 a.m. this morning with dizziness. He felt like the room spinning. No nausea sweating palpitations chest pain or headache. No limb numbness tingling or weakness. Feeling better now. He did sit on the commode at home at that time and felt like he was going to pass out. Patient able stand here at bedside without difficulty. Has clear speech. Denies any recent illness. Denies any black or bloody stools. Patient takes ivermectin twice a week for the past month. However, has not had any complaints or side effects according to the patient in the 1st 2 weeks. Has not had his medications this morning. Patient states heart rate is usually in the 50s. No recent changes in his medications. Does take metoprolol succinate 25 mg daily in the morning. Related Data Home Medications Medication Instructions Recorded Confirmed Vitamin D3 1 cap PO DAILY 04/19/19 08/20/21 Previous Rx's Medication Instructions Recorded atorvastatin 20 mg tablet 20 mg PO DAILY #90 tab 04/09/21 rivaroxaban 20 mg tablet (Xarelto) 20 mg PO DAILY #90 tab 05/17/21 Allergies Allergy/AdvReac Type Severity Reaction Status Date / Time No Known Drug Allergies Allergy Verified 05/07/21 16:06 Review of Systems Review of Systems Narrative: GENERAL: Denies chills, fatigue, malaise, fever, sweats. 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 Social History household members: spouse Smoking Status: Never smoker alcohol intake: current Smoking Status: Never smoker alcohol intake frequency: 0-2 drinks per day Substance Use Type: does not use Exam Narrative Exam Narrative: GENERAL: in no distress, not toxic not dyspneic HEAD: Normocephalic. EYES: Pupils equal round No scleral icterus. No nystagmus ENT: Mucous membranes moist. NECK: Trachea midline. CARDIOVASCULAR: Regular rate and rhythm without murmurs RESPIRATORY: Clear to auscultation. Breath sounds equal bilaterally. No wheezes, rales, or rhonchi. GASTROINTESTINAL: Abdomen soft, non-tender EXTREMITIES: No gross deformities. BACK: No flank tenderness. NEURO: AOx4. Clear speech no facial droop. Light touch intact to bilateral face hands. Strong equal molder inflated ball bilaterally and ankle flexion hip flexion and knee flexion. Strong bilateral patellar reflexes. No pronator drift. SKIN: Warm and dry PSYCH: Not anxious, is cooperative Initial Vital Signs Initial Vital Signs: Vital Signs Pulse Rate 50 L 08/20/21 07:30 Blood Pressure 176/87 H 08/20/21 07:30 Pulse Oximetry 97 08/20/21 07:30 Course Course Course Narrative: No new issues during course of stay. No hypotension with orthostatics. Decision to Admit Date: 08/20/21 Decision to Admit time: 09:03 Orders Ordered: Acetaminophen (Acetaminophen 325 Mg Tablet) 650 mg PO Q6HR PRN PRN Reason: Fever/Mild Pain (1-3) Atorvastatin Calcium (Atorvastatin 20 Mg Tablet) 20 mg PO BEDTIME JANELLE Last Admin: 08/20/21 20:19 Dose: 20 mg Documented by: MXSMITH Dextrose/Sodium Chloride (Dextrose 5%-0.45% Ns) 1,000 mls @ 100 mls/hr IV CONT JANELLE Last Admin: 08/21/21 04:59 Dose: 100 mls/hr Documented by: Infusion: 08/21/21 03:27 Dose: 100 mls/hr Documented by: Admin: 08/20/21 17:27 Dose: 100 mls/hr Documented by: EVELINE Naloxone HCl (Naloxone 0.4 Mg/Ml Vial) 0.2 mg IV Q2MIN PRN PRN Reason: Opiate Reversal Rivaroxaban (Rivaroxaban 10 Mg Tablet) 20 mg PO DAILY JANELLE Last Admin: 08/20/21 17:28 Dose: 20 mg Documented by: EVELINE Discontinued Medications Amlodipine Besylate (Amlodipine 5 Mg Tablet) 5 mg PO NOW ONE Stop: 08/20/21 16:27 Last Admin: 08/20/21 17:28 Dose: 5 mg Documented by: EVELINE Lisinopril (Lisinopril 5 Mg Tablet) 5 mg PO NOW ONE Stop: 08/20/21 09:03 Last Admin: 08/20/21 09:25 Dose: 5 mg Documented by: SANDOR Metoprolol Succinate (Metoprolol Er 25 Mg Tablet) 12.5 mg PO NOW ONE Stop: 08/20/21 08:09 Last Admin: 08/20/21 08:48 Dose: Not Given Documented by: SANDOR Reevaluation(s) Reevaluation #1: Updated patient and regarding results. They do agree for admission for blood pressure control as well as improvement for heart rate and MRI studies of the brain. Time: 09:03 Consultations Consultation #1: Spoke with primary care, Dr. Balderas. Agrees for admit as patient does have atrial fibrillation/a flutter and needs rate control proximally but also blood pressure control. Elevated blood pressure with anticoagulation needs to be monitored. MRI ordered as well. At this time will try lisinopril. Time: 09:04 Vital Signs Vital signs: Vital Signs - 8 hr 08/20/21 08:48 08/20/21 08:49 08/20/21 08:51 Pulse Rate 41 L 42 L 47 L Pulse Rate [Orthostatic Lying] Pulse Rate [Orthostatic Sitting] Pulse Rate [Orthostatic Standing] Respiratory Rate 24 21 Blood Pressure 155/91 H 161/84 H Blood Pressure [Orthostatic Lying] Blood Pressure [Orthostatic Sitting] Blood Pressure [Orthostatic Standing] Pulse Oximetry 98 97 08/20/21 08:53 08/20/21 09:00 08/20/21 09:01 Pulse Rate 51 L 49 L 47 L Pulse Rate [Orthostatic Lying] Pulse Rate [Orthostatic Sitting] Pulse Rate [Orthostatic Standing] Respiratory Rate 24 22 24 Blood Pressure 180/83 H 197/82 H Blood Pressure [Orthostatic Lying] Blood Pressure [Orthostatic Sitting] Blood Pressure [Orthostatic Standing] Pulse Oximetry 96 98 98 08/20/21 09:09 08/20/21 09:25 08/20/21 09:30 Pulse Rate 43 L 47 L Pulse Rate [Orthostatic Lying] 42 L Pulse Rate [Orthostatic Sitting] 47 L Pulse Rate [Orthostatic Standing] 50 L Respiratory Rate 26 H Blood Pressure 197/82 H 186/86 H Blood Pressure [Orthostatic Lying] 155/91 H Blood Pressure [Orthostatic Sitting] 161/84 H Blood Pressure [Orthostatic Standing] 180/83 H Pulse Oximetry 98 08/20/21 12:51 08/20/21 12:55 08/20/21 13:00 Pulse Rate 51 L 53 L Pulse Rate [Orthostatic Lying] Pulse Rate [Orthostatic Sitting] Pulse Rate [Orthostatic Standing] Respiratory Rate 24 24 Blood Pressure 171/70 H Blood Pressure [Orthostatic Lying] Blood Pressure [Orthostatic Sitting] Blood Pressure [Orthostatic Standing] Pulse Oximetry 93 98 98 08/20/21 13:01 08/20/21 13:30 08/20/21 14:00 Pulse Rate 54 L 51 L 50 L Pulse Rate [Orthostatic Lying] Pulse Rate [Orthostatic Sitting] Pulse Rate [Orthostatic Standing] Respiratory Rate 22 24 24 Blood Pressure 141/67 H 119/63 123/59 L Blood Pressure [Orthostatic Lying] Blood Pressure [Orthostatic Sitting] Blood Pressure [Orthostatic Standing] Pulse Oximetry 98 97 97 08/20/21 14:30 08/20/21 15:00 08/20/21 15:01 Pulse Rate 51 L 51 L 50 L Pulse Rate [Orthostatic Lying] Pulse Rate [Orthostatic Sitting] Pulse Rate [Orthostatic Standing] Respiratory Rate 24 21 21 Blood Pressure 115/57 L 108/64 Blood Pressure [Orthostatic Lying] Blood Pressure [Orthostatic Sitting] Blood Pressure [Orthostatic Standing] Pulse Oximetry 97 96 98 08/20/21 15:30 Pulse Rate 48 L Pulse Rate [Orthostatic Lying] Pulse Rate [Orthostatic Sitting] Pulse Rate [Orthostatic Standing] Respiratory Rate 24 Blood Pressure 143/76 H Blood Pressure [Orthostatic Lying] Blood Pressure [Orthostatic Sitting] Blood Pressure [Orthostatic Standing] Pulse Oximetry 97 MDM - Dizziness Differential Diagnosis Differential diagnosis: Likely benign paroxysmal positional vertigo, orthostatic hypotension, cerebrovascular accident, acute vestibular neuronitis and transient cerebral ischemia Lab Data Result diagrams: 08/20/21 07:35 08/20/21 07:35 Labs: Lab Results 08/20/21 08/20/21 08/20/21 Range/Units 07:30 07:35 07:35 WBC (4.5-11.0) X10^3/uL RBC (4.5-5.9) X10^6/uL Hgb (13.5-17.5) g/dL Hct (41-53) % MCV (80-100) fL MCH (26-34) PG MCHC (30-36) % RDW (11.6-14.8) % Plt Count (150-400) X10^3/uL Neut % (Auto) (50-75) % Lymph % (Auto) (25-40) % [place] % (Auto) (3-14) % Eos % (Auto) (2-4) % Baso % (Auto) (0-2) % Neut # (Auto) (7342-5461) /uL Lymph # (Auto) (9072-5144) /uL [place]arton # (Auto) (0-900) /uL Eos # (Auto) (0-450) /uL Baso # (Auto) (0-100) /uL PT 17.3 H (10.1-12.7) SECONDS INR 1.5 H (0.9-1.3) APTT 36 (26.4-36.2) SECONDS Sodium 141 (137-145) mmol/L Potassium 4.0 (3.4-5.1) mmol/L Chloride 106 (98-107) mmol/L Carbon Dioxide 26 (22-32) mmol/L BUN 17 (9-20) mg/dL Creatinine 0.87 (0.66-1.25) mg/dL Estimated GFR > 60.0 (>60) mL/min BUN/Creatinine Ratio 19.5 (6-22) Glucose 111 H (80-110) mg/dL Calcium 9.2 (8.4-10.2) mg/dL Total Bilirubin 1.0 (0.2-1.3) mg/dL AST 34 (17-59) IU/L ALT 63 H (<50) IU/L Alkaline Phosphatase 99 (38-126) U/L Troponin I (0.01-0.034) ng/mL Total Protein 7.0 (6.3-8.2) g/dL Albumin 4.2 (3.5-5.0) g/dL Globulin 2.8 (1.7-4.1) g/dL Albumin/Globulin Ratio 1.5 (1.0-2.8) SARS-CoV-2 (PCR) Negative (Negative) 08/20/21 08/20/21 08/20/21 Range/Units 07:35 07:35 09:29 WBC 6.4 (4.5-11.0) X10^3/uL RBC 4.93 (4.5-5.9) X10^6/uL Hgb 15.5 (13.5-17.5) g/dL Hct 44.9 (41-53) % MCV 90.9 (80-100) fL MCH 31.3 (26-34) PG MCHC 34.5 (30-36) % RDW 13.0 (11.6-14.8) % Plt Count 119 L (150-400) X10^3/uL Neut % (Auto) 43.0 L (50-75) % Lymph % (Auto) 42.4 H (25-40) % [place]arton % (Auto) 7.9 (3-14) % Eos % (Auto) 6.1 H (2-4) % Baso % (Auto) 0.6 (0-2) % Neut # (Auto) 2700 (2737-0670) /uL Lymph # (Auto) 2700 (1314-5058) /uL [place]arton # (Auto) 500 (0-900) /uL Eos # (Auto) 400 (0-450) /uL Baso # (Auto) 0 (0-100) /uL PT (10.1-12.7) SECONDS INR (0.9-1.3) APTT (26.4-36.2) SECONDS Sodium (137-145) mmol/L Potassium (3.4-5.1) mmol/L Chloride (98-107) mmol/L Carbon Dioxide (22-32) mmol/L BUN (9-20) mg/dL Creatinine (0.66-1.25) mg/dL Estimated GFR (>60) mL/min BUN/Creatinine Ratio (6-22) Glucose (80-110) mg/dL Calcium (8.4-10.2) mg/dL Total Bilirubin (0.2-1.3) mg/dL AST (17-59) IU/L ALT (<50) IU/L Alkaline Phosphatase (38-126) U/L Troponin I < 0.012 (0.01-0.034) ng/mL Total Protein (6.3-8.2) g/dL Albumin (3.5-5.0) g/dL Globulin (1.7-4.1) g/dL Albumin/Globulin Ratio (1.0-2.8) SARS-CoV-2 (PCR) Negative (Negative) Urine Dip Bedside Urine Glucose Negative Bedside Urine Bilirubin - Negative Bedside Urine Ketone - Negative Urine Specific [place] 1.015 Bedside Urine Occult Blood - Negative Bedside Urine pH 7.0 Bedside Urine Protein - Negative Bedside Urine Urobilinogen - Negative Bedside Urine Nitrite - Negative Bedside Urine Leukocytes - Negative Esterase Imaging Data CT scan - head: Radiologist's Impression: [address] [address] [address] Scan Report Signed Patient: Arnold Stahl I MR#: [id number] : 1945 Acct:[id number] Age/Sex: 76 / M Date of Service: 08/20/21 Loc: ED Accession Number: [id number] ?? Procedure: CT head/brain wo con Ordering Provider: John Lee MD PROCEDURE:? CT HEAD/BRAIN WO CON ? INDICATIONS:? Dizziness ? TECHNIQUE:? Noncontrast 4.5 mm thick angled axial sections acquired from the foramen magnum to the vertex, with coronal and sagittal reformats.? For radiation dose reduction, the following was used:? automated exposure control, adjustment of mA and/or kV according to patient size.? ? COMPARISON:? None. ? FINDINGS:? Image quality:? Excellent.? ? CSF spaces:? Basal cisterns are patent.? No extra-axial fluid collections.? Ventricles are age-appropriate and symmetric in size and shape.? ? Brain:? No midline shift.? No intracranial masses or hemorrhage.? Scattered hypodensities are seen in the subcortical and periventricular white matter, consistent with mild small vessel ischemic changes.? Intracranial atherosclerotic calcifications are present. ? Skull and face:? Chronic left-sided craniotomy changes are noted.? Calvarium and visualized facial bones are intact, without suspicious lesions.? ? Sinuses:? Visualized sinuses and mastoids are clear.? ? IMPRESSION:? No acute intracranial abnormality. ? ? Dictated by: Dimitris Etienne M.D. on 08/20/2021 at 8:00 ? ? Approved by: Dimitris Etienne M.D. on 08/20/2021 at 8:03 ? Chest x-ray: Radiologist's Impression: [address] [address] XRay Report Signed Patient: Arnold Stahl I MR#: [id number] : 1945 Acct:[id number] Age/Sex: 76 / M Date of Service: 08/20/21 Loc: ED Accession Number: [id number] ?? Procedure: XR chest 1V Ordering Provider: John Lee MD PROCEDURE:? XR CHEST 1V ? INDICATIONS:? Dizziness ? TECHNIQUE:? One view of the chest was acquired.? ? COMPARISON:? CT, CT ANGIO CHEST PE PROTOCOL, 04/19/2019, 12:40.? [facility], CR, XR CHEST 1V, 04/19/2019, 12:01.? [facility], , CHEST 1 VIEW, 06/13/2017, 15:12. ? FINDINGS:? ? Surgical changes and devices:? None.? ? Lungs and pleura:? No consolidation.? Right lung base pulmonary nodule appears unchanged compared to 2017. Alternatively, this could be a prominent vessel.? No pleural effusions or pneumothorax.? ? Mediastinum:? Mediastinal contours appear unchanged.? Heart size is enlarged.? ? Bones and chest wall:? No suspicious bony lesions.? Overlying soft tissues appear unremarkable.? ? IMPRESSION:? No acute cardiopulmonary abnormality. ? ? ? Dictated by: Randal Herrera M.D. on 08/20/2021 at 8:05 ? ? Approved by: Randal Herrera M.D. on 08/20/2021 at 8:08 ? MRI brain: Radiologist's Impression: [address] [address] Magnetic Resonance Report Signed Patient: Arnold Stahl I MR#: [id number] : 1945 Acct:[id number] Age/Sex: 76 / M Date of Service: 08/20/21 Loc: ED Accession Number: [id number] ?? Procedure: MR stroke Ordering Provider: John Lee MD PROCEDURE:? MR STROKE Pre- and post-contrast brain MRI, non-contrast brain MR angiogram, pre- and postcontrast neck MR angiogram ? INDICATIONS:? Dizziness ? TECHNIQUE:? Brain:? Noncontrast axial T1 spin echo, axial T2 fast spin echo, sagittal and axial FLAIR, coronal T2 fast spin echo, axial gradient echo, axial diffusion and ADC through the brain.? After the administration of contrast, axial 3D VIBE of the cranial vasculature and brain.? Brain MRA:? Non-contrast 3-D time of flight MR angiogram, with multiple ciemwwt-zwgrtexja-oyueebihdz (MIP) reformats performed.? Neck MRA:? Axial and sagittal TruFISP through the neck.? Coronal dynamic MR angiogram during administration of contrast in the arterial and venous phases, with 3-dimenstional ipvuvfv-qruuqrjel-xfdggpgptn (MIP) reformats constructed from subtraction images.? ? COMPARISON:? [facility], CT, CT HEAD/BRAIN WO CON, 08/20/2021, 7:46.? [facility], CT, CT STROKE, 11/30/2019, 6:32. ? FINDINGS:? Image quality:? Excellent.? ? BRAIN:? The ventricular system and cortical sulci demonstrate atrophy, consistent for the patient's stated age. There are areas of increased T2/FLAIR signal intensity within the periventricular and subcortical white matter.? There is no acute intra-or extra axial fluid collection. No acute hemorrhage, mass lesion or midline shift. Brainstem is unremarkable. There are no areas of restricted diffusion. Globes are symmetrical. Sinuses are aerated. Osseous structures are intact. ? BRAIN MR ANGIOGRAM:? Anterior circulation:? Intracranial internal carotid arteries are normal in size and enhancement.? The flow within the paired anterior cerebral arteries is normal and symmetric.? The flow within the middle cerebral arteries is normal and symmetric.? The anterior communicating artery is seen.? No stenoses, occlusions, or aneurysms.? Posterior circulation:? The visualized portions of the vertebral arteries demonstrate normal caliber, and join to form a normal appearing basilar artery.? The flow within the posterior cerebral arteries is normal and symmetric.? No stenoses, occlusions, or aneurysms.? There is a right vertebral artery dominance.? 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 ? NECK MR ANGIOGRAM:? The origins of the left and right common, internal and external carotid arteries demonstrate no areas of hemodynamically significant stenosis, vascular occlusion or aneurysmal dilation. Origins of the left and right vertebral arteries demonstrate no areas of hemodynamically significant stenosis, vascular occlusion or aneurysmal dilation. ?Bovine arch is incidentally noted consistent congenital variation.? Limited, visualized portions of the subclavian vasculature are unremarkable. ? IMPRESSION:? ? 1. No acute intracranial process. ? 2. Moderate atrophy and chronic microvascular ischemic changes. ? 3. No areas of hemodynamically significant stenosis, vascular occlusion or aneurysmal dilation within the anterior or posterior circulation.? ? 4. No areas of hemodynamically significant stenosis, vascular occlusion or aneurysmal dilation within the neck vasculature. ? Dictated by: Sofia Musa M.D. on 08/20/2021 at 11:00 ? ? Approved by: Sofia Musa M.D. on 08/20/2021 at 11:04 ? ECG Data Interpretation: Sinus bradycardia rate [address] elevation or depression MDM Narrative Medical decision making narrative: Over for admission. Patient on blood thinners and with high blood pressure needs car for monitoring. History of brain bleed in the past. MRI stroke protocol ordered. Patient at this time feels better at time of admission. However still elevated blood pressure and symptomatic sinus bradycardia. Reviewed with patient and and they agree for admit. Reviewed with primary care Dr. Balderas and agrees for admit as well. Discharge Plan Departure Patient Disposition: Admitted as Observation Clinical Impression: Symptomatic sinus bradycardia, Hypertensive urgency Admit Date/Time: 08/20/21 15:56 Admit Provider: Mainor Balderas
--- NOTE | 2021-08-20 07:42 | DI.CT.S_ITS ---
PROCEDURE: CT HEAD/BRAIN WO CON INDICATIONS: Dizziness TECHNIQUE: Noncontrast 4.5 mm thick angled axial sections acquired from the foramen magnum to the vertex, with coronal and sagittal reformats. For radiation dose reduction, the following was used: automated exposure control, adjustment of mA and/or kV according to patient size. COMPARISON: None. FINDINGS: Image quality: Excellent. CSF spaces: Basal cisterns are patent. No extra-axial fluid collections. Ventricles are age-appropriate and symmetric in size and shape. Brain: No midline shift. No intracranial masses or hemorrhage. Scattered hypodensities are seen in the subcortical and periventricular white matter, consistent with mild small vessel ischemic changes. Intracranial atherosclerotic calcifications are present. Skull and face: Chronic left-sided craniotomy changes are noted. Calvarium and visualized facial bones are intact, without suspicious lesions. Sinuses: Visualized sinuses and mastoids are clear. IMPRESSION: No acute intracranial abnormality. Dictated by: Dimitris Etienne M.D. on 08/20/2021 at 8:00 Approved by: Dimitris Etienne M.D. on 08/20/2021 at 8:03
[2021-08-20 07:59] LABS: Add Manual Diff / Slide Review NO; Basophils Absolute Auto 0 /uL (0-100); Basophils Percent Auto 0.6 % (0-2); Eosinophils Absolute Auto 400 /uL (0-450); Eosinophils Percent Auto 6.1 % (2-4); Hematocrit 44.9 % (41-53); Hemoglobin 15.5 g/dL (13.5-17.5); Lymphocytes Absolute Auto 2700 /uL (1100-4500); Lymphocytes Percent Auto 42.4 % (25-40); Mean Corpuscular HGB Conc 34.5 % (30-36); Mean Corpuscular Hemoglobin 31.3 PG (26-34); Mean Corpuscular Volume 90.9 fL (80-100); Monocytes Absolute Auto 500 /uL (0-900); Monocytes Percent Auto 7.9 % (3-14); Neutrophils Absolute Auto 2700 /uL (1500-7000); Platelet Count 119 X10^3/uL (150-400); Red Blood Cell Count 4.93 X10^6/uL (4.5-5.9); White Blood Cell Count 6.4 X10^3/uL (4.5-11.0)
[2021-08-20 08:06] LABS: INR 1.5 (0.9-1.3); Prothrombin Time 17.3 SECONDS (10.1-12.7)
[2021-08-20 08:08] LABS: PTT Partial Thromboplastin Tim 36 SECONDS (26.4-36.2)
[2021-08-20 08:09] LABS: Alanine Aminotransferase 63 IU/L (<50); Albumin 4.2 g/dL (3.5-5.0); Albumin Globulin Ratio 1.5 (1.0-2.8); Alkaline Phosphatase 99 U/L (38-126); Aspartate Aminotransferase 34 IU/L (17-59); BUN Creatinine Ratio 19.5 (6-22); Blood Urea Nitrogen 17 mg/dL (9-20); Calcium 9.2 mg/dL (8.4-10.2); Carbon Dioxide 26 mmol/L (22-32); Chloride 106 mmol/L (98-107); Estimated Glomerular Filt Rate > 60.0 mL/min (>60); Globulin 2.8 g/dL (1.7-4.1); Glucose 111 mg/dL (80-110); HEMOLYSIS < 15 (0-50); Sodium 141 mmol/L (137-145)
[2021-08-20 08:21] LABS: Troponin I < 0.012 ng/mL (0.01-0.034)
--- NOTE | 2021-08-20 08:52 | DI.MRI.S_ITS ---
PROCEDURE: MR STROKE Pre- and post-contrast brain MRI, non-contrast brain MR angiogram, pre- and postcontrast neck MR angiogram INDICATIONS: Dizziness TECHNIQUE: Brain: Noncontrast axial T1 spin echo, axial T2 fast spin echo, sagittal and axial FLAIR, coronal T2 fast spin echo, axial gradient echo, axial diffusion and ADC through the brain. After the administration of contrast, axial 3D VIBE of the cranial vasculature and brain. Brain MRA: Non-contrast 3-D time of flight MR angiogram, with multiple zydzjgb-fmbmgkima-jhpseedckf (MIP) reformats performed. Neck MRA: Axial and sagittal TruFISP through the neck. Coronal dynamic MR angiogram during administration of contrast in the arterial and venous phases, with 3-dimenstional utftefn-kfdlevnxy-huphzduvop (MIP) reformats constructed from subtraction images. COMPARISON: [facility], CT, CT HEAD/BRAIN WO CON, 08/20/2021, 7:46. [facility], CT, CT STROKE, 11/30/2019, 6:32. FINDINGS: Image quality: Excellent. BRAIN: The ventricular system and cortical sulci demonstrate atrophy, consistent for the patient's stated age. There are areas of increased T2/FLAIR signal intensity within the periventricular and subcortical white matter. There is no acute intra-or extra axial fluid collection. No acute hemorrhage, mass lesion or midline shift. Brainstem is unremarkable. There are no areas of restricted diffusion. Globes are symmetrical. Sinuses are aerated. Osseous structures are intact. BRAIN MR ANGIOGRAM: Anterior circulation: Intracranial internal carotid arteries are normal in size and enhancement. The flow within the paired anterior cerebral arteries is normal and symmetric. The flow within the middle cerebral arteries is normal and symmetric. The anterior communicating artery is seen. No stenoses, occlusions, or aneurysms. Posterior circulation: The visualized portions of the vertebral arteries demonstrate normal caliber, and join to form a normal appearing basilar artery. The flow within the posterior cerebral arteries is normal and symmetric. No stenoses, occlusions, or aneurysms. There is a right vertebral artery dominance. 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 NECK MR ANGIOGRAM: The origins of the left and right common, internal and external carotid arteries demonstrate no areas of hemodynamically significant stenosis, vascular occlusion or aneurysmal dilation. Origins of the left and right vertebral arteries demonstrate no areas of hemodynamically significant stenosis, vascular occlusion or aneurysmal dilation. Bovine arch is incidentally noted consistent congenital variation. Limited, visualized portions of the subclavian vasculature are unremarkable. IMPRESSION: 1. No acute intracranial process. 2. Moderate atrophy and chronic microvascular ischemic changes. 3. No areas of hemodynamically significant stenosis, vascular occlusion or aneurysmal dilation within the anterior or posterior circulation. 4. No areas of hemodynamically significant stenosis, vascular occlusion or aneurysmal dilation within the neck vasculature. Dictated by: Sofia Musa M.D. on 08/20/2021 at 11:00 Approved by: Sofia Musa M.D. on 08/20/2021 at 11:04
--- NOTE | 2021-08-20 09:04 | P.HP_ITS ---
History of Present Illness History of Present Illness Date Patient Seen: 08/20/21 Chief complaint: feeling faint/dizzy x4 hours Narrative: 76-year-old male admitted through the [facility] Emergency Department after presenting with dizziness. Patient reports he woke in the middle of the night with a sense of the room spinning. No headache or chest pains. No diaphoresis. No other neurologic symptoms. Did have a sense that he might pass out while sitting on the toilet as well. Is taking ivermectin as prophylaxis for COVID-19 ER evaluation was essentially unremarkable with the exception of heart rate in the 40s at times, combined with moderate hypertension Patient is in sinus rhythm It was elected to admit patient given his bradycardia at, DC his beta-hoa therapy and control his blood pressure. CT scan of the head was unremarkable of note. 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 Social History: household members spouse Safety & Behavioral: Feels Safe in Current Yes Environment Been Physically Hurt or No Threatened By a Person Tobacco & Substance use: Smoking Status Never smoker alcohol intake current alcohol intake frequency 0-2 drinks per day Substance Use Type does not use Meds Home Medications and Allergies Home Medications Medication Instructions Recorded Confirmed Type Vitamin D3 1 cap PO DAILY 04/19/19 08/20/21 History atorvastatin 20 mg tablet 20 mg PO DAILY #90 tab 04/09/21 08/20/21 Rx rivaroxaban 20 mg tablet (Xarelto) 20 mg PO DAILY #90 tab 05/17/21 08/20/21 Rx Allergies Allergy/AdvReac Type Severity Reaction Status Date / Time No Known Drug Allergies Allergy Verified 05/07/21 16:06 Review of Systems Constitutional Constitutional: Denies excessive sweating, Denies fever(s), Denies headache(s), Denies weakness, Denies weight gain and Denies weight loss Eyes Eyes: Denies change in vision, Denies itchy eyes, Denies loss of vision and Denies other visual disturbances ENT Ears, Nose, Mouth, and Throat: No change in voice, No dysphagia, Yes dizziness, No otalgia, No headache(s), No hoarseness, No lip swelling, No neck pain, No sore throat, No throat swelling and No tongue swelling Cardiovascular Cardiovascular: Denies chest pain, Denies syncope, Denies rapid heart rate, Denies irregular heart rhythm, Denies palpitations, Denies dyspnea, Denies dyspnea on exertion and Denies slow heart rate Respiratory Respiratory: Denies chest congestion, Denies cough, Denies hemoptysis, Denies dyspnea, Denies dyspnea on exertion, Denies stridor and Denies wheezing Gastrointestinal Gastrointestinal: Denies abdominal pain, Denies bloating, Denies change in bowel habits, Denies change in stool character, Denies dysphagia, Denies nausea, Denies vomiting and Denies hematemesis Genitourinary Genitourinary: Denies hematuria, Denies difficulty urinating and Denies urinary frequency Musculoskeletal Musculoskeletal: Denies abnormal gait, Denies myalgias, Denies arthralgias, Denies limited range of motion and Denies neck pain Neurologic Neurologic: Denies abnormal speech, Denies abnormal gait, Denies behavioral changes, Denies confusion, Reports dizziness, Denies syncope, Denies headache(s), Denies loss of vision, Denies memory loss, Denies seizure-like activity, Denies paresthesias and Denies weakness Psychiatric Psychiatric: Denies behavioral changes, Denies change in appetite, Denies confusion, Denies difficulty concentrating, Denies auditory hallucinations, Denies memory loss, Denies mood swings and Denies suicidal ideation Endocrine Endocrine: Denies excessive sweating, Denies flushing, Denies polyuria and Denies palpitations Hematologic/Lymphatic Hematologic/Lymphatic: Denies easy bleeding, Denies easy bruising and Denies lymphadenopathy Allergic/Immunologic Allergic/Immunologic: Denies urticaria, Denies itchy eyes, Denies lip swelling, Denies throat swelling, Denies tongue swelling and Denies wheezing Exam Vital Signs (past 8 hours): - 08/20/21 07:30 08/20/21 07:35 08/20/21 08:32 Temperature 97.6 F Pulse Rate 50 L 51 L 47 L Respiratory Rate 18 23 Blood Pressure 176/87 H 176/87 H 162/83 H Pulse Oximetry 97 98 97 08/20/21 08:48 Temperature Pulse Rate 41 L Respiratory Rate Blood Pressure Pulse Oximetry Oxygen Delivery Method Room Air Narrative Exam Narrative: Elderly male in no obvious distress HEENT-unremarkable, normocephalic atraumatic Neck-no lymphadenopathy no bruits Lungs-clear anteriorly and posteriorly no wheezes no crackles good breath sounds Heart-regular rate and rhythm (somewhat bradycardic), no murmur, rub, or gallop. normal S1-S2 Abdomen-positive bowel tones, soft, nontender, nondistended, no hepatosplenomegaly, no masses palpable Neuro-normal to screening exam, gait not tested Extremities-no cyanosis clubbing or edema Objective Labs Result Diagrams: 08/20/21 07:35 08/20/21 07:35 Labs: Laboratory Results - last 24 hr 08/20/21 08/20/21 08/20/21 07:35 07:35 07:35 WBC 6.4 RBC 4.93 Hgb 15.5 Hct 44.9 MCV 90.9 MCH 31.3 MCHC 34.5 RDW 13.0 Plt Count 119 L Neut % (Auto) 43.0 L Lymph % (Auto) 42.4 H [place] % (Auto) 7.9 Eos % (Auto) 6.1 H Baso % (Auto) 0.6 Neut # (Auto) 2700 Lymph # (Auto) 2700 [place] # (Auto) 500 Eos # (Auto) 400 Baso # (Auto) 0 PT 17.3 H INR 1.5 H APTT 36 Sodium 141 Potassium 4.0 Chloride 106 Carbon Dioxide 26 BUN 17 Creatinine 0.87 Estimated GFR > 60.0 BUN/Creatinine Ratio 19.5 Glucose 111 H Calcium 9.2 Total Bilirubin 1.0 AST 34 ALT 63 H Alkaline Phosphatase 99 Troponin I Total Protein 7.0 Albumin 4.2 Globulin 2.8 Albumin/Globulin Ratio 1.5 08/20/21 07:35 WBC RBC Hgb Hct MCV MCH MCHC RDW Plt Count Neut % (Auto) Lymph % (Auto) [place] % (Auto) Eos % (Auto) Baso % (Auto) Neut # (Auto) Lymph # (Auto) [place] # (Auto) Eos # (Auto) Baso # (Auto) PT INR APTT Sodium Potassium Chloride Carbon Dioxide BUN Creatinine Estimated GFR BUN/Creatinine Ratio Glucose Calcium Total Bilirubin AST ALT Alkaline Phosphatase Troponin I < 0.012 Total Protein Albumin Globulin Albumin/Globulin Ratio Assessment & Plan Assessment & Plan narrative: 1. Dizziness-no clear etiology for this at this point. Bradycardia certainly could be responsible for this. MRI of the brain with stroke protocol was performed and is unremarkable. 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 Bradycardia certainly seems to be much more likely given that. 2. Bradycardia-I agree patient should remain off beta-hoa therapy. He has a more distant history of the atrial fibrillation and was related it seems more to his rather massive pulmonary embolism in 2019. Hopefully he will not have recurrence off beta-hoa therapy. A brief review of the literature does not indicate the bradycardia is likely toxic effect from ivermectin, so I do not believe that is the cause of any of patient's symptoms. 3. Hypertension-patient somewhat increased risk with his chronic anticoagulation hypertension although his numbers are not that severely elevated. Will control or attempt to control with oral amlodipine and discontinue the metoprolol as above 4. History of pulmonary embolism and DVT-patient should continue on direct oral anticoagulant because of this and the history the paroxysmal atrial fibrillation. This will provide VTE prophylaxis of course. Time Spent With Patient Critical Care time: I spent a total of [] minutes of critical care time on this patient's care today; this time is exclusive of procedural time.
[2021-08-20] MEDS: lisinopriL 5 MG TABLET PO (09:25)
[2021-08-20 09:27] LABS: COVID19 -Nasal RAPID Negative (Negative)
[2021-08-20 10:41] LABS: COVID19 - ADMIT (NP swab/PCR) Negative (Negative)
[2021-08-20] MEDS: DEXTROSE 5%-0.45% NS 1,000 ML 100 ML IV (17:27)
[2021-08-20] MEDS: AMLODIPINE 5 MG TABLET PO (17:28)
[2021-08-20] MEDS: RIVAROXABAN 10 MG TABLET 20 MG PO (17:28)
--- NOTE | 2021-08-20 19:47 | PC.NURSE ---
Pt arrived to unit from ED at 1610 A&Ox3. VSS, afebrile on RA, HR SB, asymptomatic denies dizziness, ambulating with steady gait. Completed admission. MD at bedside this evening. IVF D5 1/2 NS at 100 ml/hr. He eats 100 % of meal good fluid intake and voiding adequately. No edema noted, denies CP. Continuous monitoring.
[2021-08-20] MEDS: ATORVASTATIN 20 MG TABLET PO (20:19)
[2021-08-21 00:24] VITALS: BP 148/84; PULSE 48; RESP 24; TEMP 36.6; O2SAT 97
[2021-08-21 04:00] VITALS: BP 133/78; PULSE 47; RESP 18; TEMP 36.4; O2SAT 97
[2021-08-21] MEDS: DEXTROSE 5%-0.45% NS 1,000 ML 100 ML IV (04:59)
[2021-08-21 07:35] VITALS: BP 136/81; PULSE 53; RESP 20; TEMP 36.7; O2SAT 98
--- NOTE | 2021-08-21 08:00 | PC.NURSE ---
Pt was SB with first degree AVB, mainly in the low 40's all night. Pt up to use the urinal with assistance due to bradicardia, plan is to continue to monitor.
[2021-08-21 08:03] VITALS: BP 117/65; PULSE 66; RESP 16; TEMP 37.3; O2SAT 96
--- NOTE | 2021-08-21 08:07 | P.DS_ITS ---
History of Present Illness History of Present Illness Date Patient Seen: 08/21/21 Time Patient Seen: 08:07 Chief complaint: feeling faint/dizzy x4 hours Narrative: 76-year-old male admitted through the [facility] Emergency Department after presenting with dizziness. Patient reports he woke in the middle of the night with a sense of the room spinning. No headache or chest pains. No diaphoresis. No other neurologic symptoms. Did have a sense that he might pass out while sitting on the toilet as well. Is taking ivermectin as prophylaxis for COVID-19 ER evaluation was essentially unremarkable with the exception of heart rate in the 40s at times, combined with moderate hypertension Patient is in sinus rhythm It was elected to admit patient given his bradycardia at, DC his beta-hoa therapy and control his blood pressure. CT scan of the head was unremarkable of note. Discharge Providers Provider Date of admission: 08/20/21 15:56 Discharge Date: 08/21/21 Primary care physician: Mainor Balderas MD Discharge provider: Mainor Balderas MD Summary Hospital Course Discharge Diagnosis: 1. Vertigo, probable benign positional 2. Bradycardia 3. Hypertension 4. Paroxysmal atrial fibrillation 5. History of DVT/pulmonary embolism 6. Hyperlipidemia Hospital Course: Patient presented with above symptoms to the hospital. CT scan and lab work were unremarkable. The only real findings were some mild bradycardia with heart rate into the 40s while awake and alert. Patient was not really symptomatic with this. Was felt as though this was a possible source of his presenting symptoms of dizziness/vertigo etcetera. Did have some semblance of a near- syncope type component to it at least at times. MRI of the brain was performed which included angiography and did not show any evidence of an acute or chronic UNSTACKER event or any vascular issues Patient had his metoprolol discontinued so his last dose metoprolol was probably the morning prior to admission. He was monitored on telemetry and persisted with bradycardia with heart rates into the 40s at times while sleeping. Patient felt maybe slightly better morning of discharge. There is no real aggressive symptoms Patient was felt to be stable for discharge and he will continue off his beta-hoa therapy. Patient's blood pressure was up and down he did receive a dose of amlodipine during the hospitalization but he will not be restarted on any hypertensive therapy upon discharge will have close outpatient follow-up Upon patient's request he will also be seen by Cardiology as an outpatient Exam Vital Signs (past 8 hours): - 08/21/21 00:24 08/21/21 04:00 08/21/21 07:35 Temperature 97.9 F 97.5 F L 98.0 F Pulse Rate 48 L 47 L 53 L Respiratory Rate 24 18 20 Blood Pressure 148/84 H 133/78 136/81 Pulse Oximetry 97 97 98 Oxygen Delivery Method Room Air Oxygen Flow Rate 0 Narrative Exam Narrative: HEENT-unremarkable, normocephalic atraumatic Neck-no lymphadenopathy no bruits Lungs-clear anteriorly and posteriorly no wheezes no crackles good breath sounds Heart-regular rate and rhythm, no murmur, rub, or gallop. normal S1-S2 Abdomen-positive bowel tones, soft, nontender, nondistended, no hepatosplenomegaly, no masses palpable Neuro-normal to screening exam, gait not tested Extremities-no cyanosis clubbing or edema Objective Labs Result Diagrams: 08/20/21 07:35 08/20/21 07:35 Labs: Laboratory Results - last 24 hr 08/20/21 08/20/21 08/20/21 07:30 07:35 07:35 PT 17.3 H INR 1.5 H APTT 36 Sodium 141 Potassium 4.0 Chloride 106 Carbon Dioxide 26 BUN 17 Creatinine 0.87 Estimated GFR > 60.0 BUN/Creatinine Ratio 19.5 Glucose 111 H Calcium 9.2 Total Bilirubin 1.0 AST 34 ALT 63 H Alkaline Phosphatase 99 Troponin I Total Protein 7.0 Albumin 4.2 Globulin 2.8 Albumin/Globulin Ratio 1.5 SARS-CoV-2 (PCR) Negative 08/20/21 08/20/21 07:35 09:29 PT INR APTT Sodium Potassium Chloride Carbon Dioxide BUN Creatinine Estimated GFR BUN/Creatinine Ratio Glucose Calcium Total Bilirubin AST ALT Alkaline Phosphatase Troponin I < 0.012 Total Protein Albumin Globulin Albumin/Globulin Ratio SARS-CoV-2 (PCR) Negative [facility] Medical History 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 Social History household members: spouse Smoking Status: Never smoker alcohol intake: current Discharge Assessment & Plan Assessment and Plan Plan of Treatment: Patient continue off metoprolol without additional antihypertensive therapy Patient to be seen in in the clinic at [facility] by Dr. Balderas within the next 7-10 days Patient to be set up for outpatient cardiology evaluation as well Discharge Plan Discharge Plan Patient Disposition: Home Discharge orders & Medications Prescriptions: Continued atorvastatin 20 mg tablet 20 mg PO DAILY Qty: 90 0RF Xarelto 20 mg tablet 20 mg PO DAILY Qty: 90 3RF Rx Instructions: must administer with a meal/food. Vitamin D3 1 cap PO DAILY 0RF Follow up/Referrals: Mainor Balderas MD [Primary Care Provider] - 1 Week Discharge Health Status Multidrug resistant organism: No MDRO Diet/Activity/Treatments Diet: Diet as Tolerated Discharge Data Primary Care Provider: Mainor Balderas Attending Provider: Mainor Balderas Quality VTE Deep Vein Thrombosis/Pulmonary Embolism Present on Admission: No
--- NOTE | 2021-08-21 08:50 | CM.DANOTE ---
DCP: Case received, EMR reviewed and met with patient. Spouse, Melly, was also at bedside. Introduced self and role. Was able to obtain information regarding patient's baseline activity status prior to hospitalization. DCP assessment completed with information currently available. Patient is a 76 year old male who admitted yesterday afternoon to the care of the hospitalist team. PCP: Dr. Balderas. Payer: confirmed: Medicare/[employer] Patient came to the hospital via private vehicle secondary to dizziness. Patient had complained that he had symptoms of the room spinning, while he was in bed. Patient did note some bradycardia. He already had MRI and CT scan completed. Met with patient in his room. He and both pleasant. Patient is alert and oriented, and he is independent at his baseline. He uses no DME supplies. He and his both reside here in [place]. P: Patient is being discharged home today. Tamara Lai RN/Clinical Support Associate Discharge Planning/Care Management CM Discharge Assessment Start: 08/21/21 08:49 Freq: Status: Active Protocol: Document 08/21/21 08:49 (Rec: 08/21/21 08:50 [id number]) Discharge Planning Assessment Assigned Industrial Organization Manager Tamara Lai RN/Clinical Support Associate Advance Directives? Yes Advance Directives on File No History Provided By Patient,Medical Record Prior Living Arrangements House Household Members spouse Type of transporation used prior to Drives own vehicle admit Independent with ADL's Yes Is patient alert and oriented? Yes Caregiver for Another No Discharge Plan Home Transportation Arrangement Spouse Referrals Initiated None needed Review Status In Process Next Review Type Continued Stay Review
[2021-08-21] MEDS: RIVAROXABAN 10 MG TABLET 20 MG PO (09:35)
--- NOTE | 2021-08-21 10:21 | PC.NURSE ---
Patient alert, oriented reports dizziness in improved. Ambulating around room without difficulty. Went over dc medications and instructions, questions answered. Patient taken via wc to vehicle driven by family.
== END 2021-08-21 10:15 | disposition home or self-care (01) ==
LOC: ED 11:46 → AC 15:57
PROVIDERS: Admitting Provider Internal Medicine; Emergency Provider Emergency Medicine; PCP Internal Medicine; Referring Provider Emergency Medicine; Visit Provider Internal Medicine
DX: R42 Dizziness and giddiness (principal); R55 Syncope and collapse; R00.1 Bradycardia, unspecified; I48.0 Paroxysmal atrial fibrillation; I10 Essential (primary) hypertension; Z79.01 Long term (current) use of anticoagulants; Z86.711 Personal history of pulmonary embolism; Z86.718 Personal history of other venous thrombosis and embolism; Z20.822 Contact with and (suspected) exposure to COVID-19
CPT/HCPCS: 36415; 70450; 70548; 70553; 71045; 80053; 81003; 84484; 85025; 85610; 85730; 87635; 93005; 96365; 96366; 99217; 99219; 99284; 99285; C9803; G0378

== ENCOUNTER → 2021-09-28 10:12 | Outpatient (CLI) | payer MEDICARE, OTHER, SELFPAY ==
[2021-08-20 17:14] VITALS: BMI 30.7
[2021-09-28 13:29] LABS: Free T4, Direct Thyroxine 1.11 ng/dL (0.78-2.19)
[2021-09-28 13:43] LABS: Thyroid Stimulating Hormone 2.57 uIU/mL (0.47-4.68)
== END ==
PROVIDERS: PCP Internal Medicine; Referring Provider Internal Medicine Cardiovascular Disease; Visit Provider Internal Medicine Cardiovascular Disease
DX: R00.1 Bradycardia, unspecified (principal)
CPT/HCPCS: 36415; 84439; 84443

== ENCOUNTER → 2021-11-13 14:25 | Outpatient (CLI) | payer MEDICARE, OTHER, SELFPAY ==
[2021-08-20 17:14] VITALS: BMI 30.7
--- NOTE | 2021-11-13 | DI.ECHO.S_ITS ---
[facility]---------+ [facility] +---------+ : : [address] [place] : : : : [id number] : : : : Phone: [phone]---------+ Echocardiogram Report + + :Name: EAGLE RIVERA Study Date: 11/13/2021 Height: 69 in : :[facility] ReadingLocation: Weight: 205 lb : : Gender: Male BSA: 2.1 m2 : :: 1945 Age: 76 yrs BP: 156/99 mmHg: :Reason For Study: BRADYCARDIA : :Ordering Physician: EVA, : :MENDY Sanford Performed By: Sonja Ramos : :Referring: MENDY HERNÁNDEZ : + + Interpretation Summary The ejection fraction is estimated to be 60-65%. Diastolic parameters suggest probable normal left ventricular diastolic function and normal filling pressures. The right ventricle is mildly dilated. The right ventricular systolic function is normal. The left atrium is mildly dilated. There is mild mitral regurgitation. There is moderate tricuspid regurgitation. PASP is approximately 35 to 40 mmHg. The ascending aorta is mildly enlarged. Compared to the prior study dated 04/20/2019, no significant change. Procedure: A two-dimensional transthoracic echocardiogram with color flow and Doppler was performed. The study quality was technically adequate. Comparison is made with the echocardiogram of 04/20/2019. The patient was in sinus bradycardia with heart rates between 48-55 bpm during the exam. The patient had occasional PVCs during the exam. Left Ventricle: The left ventricle is normal in size and wall thickness. The ejection fraction is estimated to be 60-65%. Diastolic parameters suggest probable normal left ventricular diastolic function and normal filling pressures. Right Ventricle: The right ventricle is mildly dilated. The right ventricular systolic function is normal. Atria: The left atrium is mildly dilated. Right atrial size is normal. There is no Doppler evidence for an interatrial shunt. Mitral Valve: The mitral valve is normal in structure and function. There is mild mitral regurgitation. Aortic Valve: The aortic valve is trileaflet. The aortic valve opens well. The aortic valve is slightly calcified. There is no aortic valve stenosis. There is trace aortic regurgitation. Tricuspid Valve: The tricuspid valve is normal in structure and function. There is moderate tricuspid regurgitation. PASP is approximately 35 to 40 mmHg. Pulmonic Valve: The pulmonic valve leaflets are thin and pliable; valve motion is normal. There is mild pulmonic regurgitation. Great Vessels: The aortic root is normal size. The ascending aorta is mildly enlarged. The IVC is of normal diameter and collapses greater than 50% with a sniff. This suggests a low right atrial pressure of 3 mm Hg. Pericardium/ Pleura There is no pericardial effusion. There is no pleural effusion. MMode/2D Measurements & Calculations LVIDd: 4.1 cm LVOT diam: 2.0 cm LVIDs: 2.9 cm Ao root diam: 3.3 cm FS: 30.0 % asc Aorta Diam: 3.8 cm IVSd: 0.94 cm Ao Arch Diam (Prox Trans): 2.4 cm LVPWd: 0.95 cm LV ramesh. diameter/BSA (cm/m^2): 2.0 LV sys. diameter/BSA (cm/m^2): 1.4 LA A2 area: 24.2 cm2 RA long axis: 6.3 cm LA A4 area: 23.7 cm2 RA area: 22.7 cm2 LA length (vol): 6.4 cm RA vol: 69.4 ml LA vol: 75.4 ml RA : 33.2 ml/m2 LA vol index: 36.1 ml/m2 IVC diam: 1.3 cm RVD1 (basal): 4.1 cm RVD2 (mid): 3.1 cm TAPSE: 2.2 cm Doppler Measurements & Calculations Ao V2 max: 139.1 cm/sec LVOT Max Ernie: 89.8 cm/sec Ao V2 mean: 95.4 cm/sec LV V1 max P.2 mmHg Ao max P.7 mmHg LV V1 VTI: 20.3 cm Ao mean P.1 mmHg DANN(I,D): 2.1 cm2 Ao V2 VTI: 30.5 cm DANN(V,D): 2.0 cm2 sev ratio: 0.67 DANN indexed to BSA (cm^2/m^2): 0.99 MV E max ernie: 57.9 cm/sec TR max ernie: 279.6 cm/sec MV A max ernie: 65.4 cm/sec TR max P.3 mmHg MV E/A: 0.89 PA V2 max: 98.5 cm/sec Med Peak E' Ernie: 5.4 cm/sec PA V2 mean: 67.5 cm/sec E/E' med: 10.8 PA mean P.1 mmHg Lat Peak E' Ernie: 7.0 cm/sec PA pr(Accel): 43.0 mmHg E/E' lat: 8.3 E/e' average: 9.5 MV dec time: 0.40 sec SV(LVOT): 62.8 ml Reading Physician:12:18 PM
[2021-11-13 17:32] LABS: COVID19 -Nasal RAPID Negative (Negative)
--- NOTE | 2021-11-14 11:53 | PM.TREADMILL ---
Cardiac Stress Test Report Referral & Results Date Patient Seen: 11/14/21 Time Patient Seen: 11:53 Requesting provider: Mendy Hernández Indication: bradycardia Rest ECG: sinus rhythm Procedure Note: Standard Avery protocol, 8:02; 8.9 mets Very good exercise capacity, SONIYA -42% Normal hemodynamic response to exercise No chest pain or anginal symptoms No significant ST changes at peak exercise Occasional PACs, PVCs, couplets and 3 beat run of NSVT Impression: Equivocal exercise stress test Nuclear images pending Please note: Actual ECG tracings can be found in the PACS system.
--- NOTE | 2021-11-14 17:14 | DI.NM.S_ITS ---
DATE OF SERVICE: 11/13/2021 PROCEDURE: Exercise perfusion study. INDICATION: Paroxysmal AFib, bradycardia, hypertension and hyperlipidemia. RADIOPHARMACEUTICAL: 25.8 millicurie technetium-99m Myoview IV was injected at stress and 23.9 millicurie technetium-99m Myoview IV was injected at rest. CARDIAC STRESS: The patient underwent exercise perfusion study under the supervision of attending staff using standard Avery protocol. The patient walked on Avery protocol for 8 minutes, 01 seconds, achieved 92 percent of target heart rate. Normal blood pressure response. Baseline blood pressure 114/68 and maximum blood pressure 152/72 mmHg. SONIYA -42 percent. Achieved 10.1 METs of workload. Baseline rhythm was sinus. Occasional PVCs and PACs. During stress, no convincing ischemic changes seen. The patient had one five-beat run of polymorphic ventricular tachycardia, around 7 minutes into the exercise. No sustained ventricular tachycardia or obvious atrial fibrillation seen. PACs and isolated PVCs were seen, as well. RAW DATA: There is increased subdiaphragmatic activity. The patient's weight is 209 pounds. GATED STUDY: Increased subdiaphragmatic activity. The stress LV ejection fraction 69 percent. Resting end-diastolic volume 103 mL. TID ratio 0.89, which is within normal limits. Lung/heart ratio 0.34, which is within normal limits. MYOCARDIAL PERFUSION SCAN: Stress supine, resting supine and stress prone images were compared to each other. Stress supine and resting supine images revealed small size, mildly decreased perfusion of base to mid inferior wall, which got improved during prone images suggestive of diaphragmatic tissue attenuation artifact. No convincing ischemia or infarction seen. CONCLUSION: 1. I will call this study a normal myocardial perfusion study with evidence of diaphragmatic attenuation artifact, which got improved during stress prone images. Excellent exercise tolerance. SONIYA -42 percent. Normal hemodynamic response. No chest pain or anginal symptoms. 2. The patient had one five-beat run of polymorphic nonsustained ventricular tachycardia at around 7 minutes into the exercise. Intermittent premature atrial contractions and premature ventricular contractions without any sustained ventricular tachycardia or obvious atrial fibrillation. Stress left ventricular ejection fraction 69 percent. No transient ischemic dilatation. Arnold StahlN: [id number] Cindi/ruthann doc#: [id number]/job#: [id number] dd: 11/14/2021 16:42:00 dt: 11/14/2021 17:04:00 DICTATING MD/COPIES TO: Gisela Lomax MD COPIES MNE: NILAY;
== END ==
PROVIDERS: PCP Internal Medicine; Referring Provider Internal Medicine Cardiovascular Disease; Visit Provider Internal Medicine Cardiovascular Disease
DX: I08.1 Rheumatic disorders of both mitral and tricuspid valves (principal); I77.89 Other specified disorders of arteries and arterioles; I48.0 Paroxysmal atrial fibrillation; E78.5 Hyperlipidemia, unspecified; I10 Essential (primary) hypertension; R00.1 Bradycardia, unspecified; Z20.822 Contact with and (suspected) exposure to COVID-19
CPT/HCPCS: 78452; 87635; 93017; 93306; A9502

== ENCOUNTER → 2022-07-04 08:02 | Outpatient (CLI) | payer MEDICARE, OTHER, SELFPAY ==
[2021-08-20 17:14] VITALS: BMI 30.7
[2022-07-04 09:46] LABS: Add Manual Diff / Slide Review NO; Basophils Absolute Auto 0 /uL (0-100); Basophils Percent Auto 0.5 % (0-2); Eosinophils Absolute Auto 500 /uL (0-450); Eosinophils Percent Auto 8.3 % (2-4); Hematocrit 43.8 % (41-53); Hemoglobin 15.1 g/dL (13.5-17.5); Lymphocytes Absolute Auto 2500 /uL (1100-4500); Lymphocytes Percent Auto 43.7 % (25-40); Mean Corpuscular HGB Conc 34.4 % (30-36); Mean Corpuscular Hemoglobin 31.7 PG (26-34); Mean Corpuscular Volume 92.1 fL (80-100); Monocytes Absolute Auto 500 /uL (0-900); Monocytes Percent Auto 8.1 % (3-14); Neutrophils Absolute Auto 2200 /uL (1500-7000); Neutrophils Percent Auto 39.4 % (50-75); Platelet Count 126 X10^3/uL (150-400); Red Blood Cell Count 4.76 X10^6/uL (4.5-5.9); Red Cell Distribution Width 13.4 % (11.6-14.8); White Blood Cell Count 5.6 X10^3/uL (4.5-11.0)
[2022-07-04 11:11] LABS: Alanine Aminotransferase 131 IU/L (<50); Albumin Globulin Ratio 1.4 (1.0-2.8); Alkaline Phosphatase 176 U/L (38-126); Aspartate Aminotransferase 61 IU/L (17-59); BUN Creatinine Ratio 26.1 (6-22); Bilirubin Total 0.8 mg/dL (0.2-1.3); Blood Urea Nitrogen 24 mg/dL (9-20); Carbon Dioxide 26 mmol/L (22-32); Chloride 105 mmol/L (98-107); Cholesterol 151 mg/dL (140-199); Estimated Glomerular Filt Rate > 60 mL/min (>60); Globulin 2.9 g/dL (1.7-4.1); Glucose 99 mg/dL (80-110); HDL Cholesterol 44 mg/dL (40-60); Potassium 4.3 mmol/L (3.4-5.1); Sodium 140 mmol/L (137-145); Total Protein 6.9 g/dL (6.3-8.2); Triglycerides 73 mg/dL (35-150)
[2022-07-04 11:12] LABS: HEMOLYSIS < 15 (0-50); LDL Cholesterol Calculated 92 mg/dL (<100)
== END ==
PROVIDERS: PCP Internal Medicine; Referring Provider Internal Medicine Cardiovascular Disease; Visit Provider Internal Medicine Cardiovascular Disease
DX: E78.5 Hyperlipidemia, unspecified (principal); I48.0 Paroxysmal atrial fibrillation; I10 Essential (primary) hypertension
CPT/HCPCS: 36415; 80053; 80061; 85025

== ENCOUNTER → 2023-02-10 07:08 | Outpatient (CLI) | payer MEDICARE, OTHER, SELFPAY ==
[2021-08-20 17:14] VITALS: BMI 30.7
[2023-02-10 08:32] LABS: Add Manual Diff / Slide Review NO; Basophils Absolute Auto 0 /uL (0-100); Basophils Percent Auto 0.4 % (0-2); Eosinophils Absolute Auto 500 /uL (0-450); Eosinophils Percent Auto 7.8 % (2-4); Hematocrit 45.4 % (41-53); Hemoglobin 15.6 g/dL (13.5-17.5); Lymphocytes Absolute Auto 2700 /uL (1100-4500); Lymphocytes Percent Auto 42.3 % (25-40); Mean Corpuscular HGB Conc 34.4 % (30-36); Mean Corpuscular Hemoglobin 31.8 PG (26-34); Mean Corpuscular Volume 92.3 fL (80-100); Monocytes Absolute Auto 500 /uL (0-900); Monocytes Percent Auto 8.3 % (3-14); Neutrophils Absolute Auto 2600 /uL (1500-7000); Neutrophils Percent Auto 41.2 % (50-75); Platelet Count 126 X10^3/uL (150-400); Red Blood Cell Count 4.92 X10^6/uL (4.5-5.9); Red Cell Distribution Width 13.4 % (11.6-14.8); White Blood Cell Count 6.4 X10^3/uL (4.5-11.0)
[2023-02-10 08:47] LABS: Alanine Aminotransferase 114 IU/L (<50); Albumin 3.9 g/dL (3.5-5.0); Albumin Globulin Ratio 1.4 (1.0-2.8); Alkaline Phosphatase 141 U/L (38-126); Aspartate Aminotransferase 57 IU/L (17-59); Bilirubin Total 1.1 mg/dL (0.2-1.3); Blood Urea Nitrogen 20 mg/dL (9-20); Calcium 8.7 mg/dL (8.4-10.2); Carbon Dioxide 26 mmol/L (22-32); Chloride 104 mmol/L (98-107); Cholesterol 153 mg/dL (140-199); Estimated Glomerular Filt Rate > 60 mL/min (>60); Globulin 2.8 g/dL (1.7-4.1); Glucose 97 mg/dL (80-110); HDL Cholesterol 44 mg/dL (40-60); HEMOLYSIS < 15 (0-50); LDL Cholesterol Calculated 94 mg/dL (<100); Potassium 4.2 mmol/L (3.4-5.1); Sodium 137 mmol/L (137-145); Total Protein 6.7 g/dL (6.3-8.2); Triglycerides 77 mg/dL (35-150)
== END ==
PROVIDERS: PCP Internal Medicine; Referring Provider Internal Medicine; Visit Provider Internal Medicine
DX: E78.2 Mixed hyperlipidemia (principal); I48.0 Paroxysmal atrial fibrillation; Z79.01 Long term (current) use of anticoagulants
CPT/HCPCS: 36415; 80053; 80061; 85025

== ENCOUNTER → 2023-09-26 06:51 | Outpatient (CLI) | payer MEDICARE, OTHER, SELFPAY ==
[2021-08-20 17:14] VITALS: BMI 30.7
[2023-09-26 07:46] LABS: Add Manual Diff / Slide Review NO; Basophils Absolute Auto 0 /uL (0-100); Basophils Percent Auto 0.6 % (0-2); Eosinophils Absolute Auto 500 /uL (0-450); Eosinophils Percent Auto 7.4 % (2-4); Hematocrit 45.4 % (41-53); Hemoglobin 15.6 g/dL (13.5-17.5); Lymphocytes Absolute Auto 2900 /uL (1100-4500); Mean Corpuscular HGB Conc 34.4 % (30-36); Mean Corpuscular Hemoglobin 31.4 PG (26-34); Mean Corpuscular Volume 91.4 fL (80-100); Monocytes Absolute Auto 600 /uL (0-900); Monocytes Percent Auto 8.5 % (3-14); Neutrophils Absolute Auto 2600 /uL (1500-7000); Neutrophils Percent Auto 39.5 % (50-75); Platelet Count 142 X10^3/uL (150-400); Red Blood Cell Count 4.97 X10^6/uL (4.5-5.9); Red Cell Distribution Width 13.1 % (11.6-14.8); White Blood Cell Count 6.6 X10^3/uL (4.5-11.0)
[2023-09-26 07:58] LABS: Alanine Aminotransferase 27 IU/L (<50); Albumin Globulin Ratio 1.3 (1.0-2.8); Alkaline Phosphatase 100 U/L (38-126); BUN Creatinine Ratio 30.4 (6-22); Bilirubin Total 1.2 mg/dL (0.2-1.3); Blood Urea Nitrogen 21 mg/dL (9-20); Carbon Dioxide 24 mmol/L (22-32); Chloride 105 mmol/L (98-107); Cholesterol 155 mg/dL (140-199); Estimated Glomerular Filt Rate > 60 mL/min (>60); Glucose 102 mg/dL (80-110); HDL Cholesterol 36 mg/dL (40-60); HEMOLYSIS < 15 (0-50); LDL Cholesterol Calculated 104 mg/dL (<100); Potassium 4.1 mmol/L (3.4-5.1); Sodium 138 mmol/L (137-145); Triglycerides 75 mg/dL (35-150)
[2023-09-26 08:29] LABS: Free T4, Direct Thyroxine 1.16 ng/dL (0.78-2.19)
[2023-09-26 08:43] LABS: Thyroid Stimulating Hormone 2.57 uIU/mL (0.47-4.68)
[2023-09-26 15:27] LABS: Aspartate Aminotransferase 31 IU/L (17-59)
== END ==
PROVIDERS: PCP Internal Medicine; Referring Provider Internal Medicine Cardiovascular Disease; Visit Provider Internal Medicine Cardiovascular Disease
DX: I48.0 Paroxysmal atrial fibrillation (principal); R74.01 Elevation of levels of liver transaminase levels; E78.5 Hyperlipidemia, unspecified; E78.2 Mixed hyperlipidemia; K73.9 Chronic hepatitis, unspecified; Z79.01 Long term (current) use of anticoagulants
CPT/HCPCS: 36415; 80053; 80061; 84439; 84443; 85025

== ENCOUNTER → 2024-06-15 06:50 | Outpatient (CLI) | payer MEDICARE, OTHER, SELFPAY ==
[2021-08-20 17:14] VITALS: BMI 30.7
[2024-06-15 08:30] LABS: Add Manual Diff / Slide Review NO; Basophils Absolute Auto 0 /uL (0-100); Basophils Percent Auto 0.5 % (0-2); Eosinophils Absolute Auto 500 /uL (0-450); Eosinophils Percent Auto 7.5 % (2-4); Hematocrit 40.7 % (41-53); Hemoglobin 13.8 g/dL (13.5-17.5); Lymphocytes Absolute Auto 2800 /uL (1100-4500); Lymphocytes Percent Auto 43.3 % (25-40); Mean Corpuscular Hemoglobin 32.5 PG (26-34); Mean Corpuscular Volume 95.5 fL (80-100); Monocytes Absolute Auto 600 /uL (0-900); Monocytes Percent Auto 8.8 % (3-14); Neutrophils Absolute Auto 2600 /uL (1500-7000); Neutrophils Percent Auto 39.9 % (50-75); Platelet Count 189 X10^3/uL (150-400); Red Blood Cell Count 4.26 X10^6/uL (4.5-5.9); Red Cell Distribution Width 13.7 % (11.6-14.8); White Blood Cell Count 6.5 X10^3/uL (4.5-11.0)
[2024-06-15 08:53] LABS: Alanine Aminotransferase 108 IU/L (<50); Albumin 3.6 g/dL (3.5-5.0); Albumin Globulin Ratio 1.3 (1.0-2.8); Alkaline Phosphatase 441 U/L (38-126); Aspartate Aminotransferase 92 IU/L (17-59); BUN Creatinine Ratio 29.1 (6-22); Bilirubin Total 1.9 mg/dL (0.2-1.3); Blood Urea Nitrogen 23 mg/dL (9-20); Calcium 9.3 mg/dL (8.4-10.2); Carbon Dioxide 25 mmol/L (22-32); Chloride 103 mmol/L (98-107); Cholesterol 241 mg/dL (140-199); Estimated Glomerular Filt Rate > 60 mL/min (>60); Globulin 2.8 g/dL (1.7-4.1); Glucose 94 mg/dL (80-110); HDL Cholesterol 58 mg/dL (40-60); HEMOLYSIS < 15 (0-50); LDL Cholesterol Calculated 167 mg/dL (<100); Potassium 4.3 mmol/L (3.4-5.1); Sodium 137 mmol/L (137-145); Total Protein 6.4 g/dL (6.3-8.2); Triglycerides 82 mg/dL (35-150)
[2024-06-15 09:03] LABS: Free T4, Direct Thyroxine 1.32 ng/dL (0.78-2.19)
[2024-06-15 09:16] LABS: Thyroid Stimulating Hormone 2.45 uIU/mL (0.47-4.68)
== END ==
PROVIDERS: PCP Internal Medicine; Referring Provider Internal Medicine; Visit Provider Internal Medicine
DX: I48.0 Paroxysmal atrial fibrillation (principal); E78.2 Mixed hyperlipidemia; E55.9 Vitamin D deficiency, unspecified; R63.4 Abnormal weight loss
CPT/HCPCS: 36415; 80053; 80061; 82306; 84439; 84443; 85025

== ENCOUNTER → 2024-07-20 10:51 | Outpatient (CLI) | payer MEDICARE, OTHER, SELFPAY ==
[2021-08-20 17:14] VITALS: BMI 30.7
[2024-07-20 12:05] LABS: Appearance Urine UA CLEAR; Bilirubin Urine UA NEGATIVE (NEGATIVE); Color Urine UA YELLOW; Glucose Urine UA NEGATIVE (Negative); Ketones Urine UA NEGATIVE (NEGATIVE); Leukocyte Esterase Urine UA NEGATIVE (NEGATIVE); Nitrite Urine UA NEGATIVE (Negative); Occult Blood Urine UA NEGATIVE (Negative); Protein Urine UA NEGATIVE (Negative); Specific Gravity Urine UA <=1.005 (1.000-1.035)
[2024-07-20 12:18] LABS: Bacteria Urine None Seen; Culture Indicated Urine Cult Not Indicated; RBC Urine None Seen (0-5/HPF); Squamous Epithelial Cell Urine None Seen (0-5/HPF); Urine Volume 10mL (spun); WBC Urine 0-1/HPF (0-5/HPF)
== END ==
PROVIDERS: PCP Internal Medicine; Referring Provider Internal Medicine; Visit Provider Internal Medicine
DX: R39.89 Other symptoms and signs involving the genitourinary system (principal)
CPT/HCPCS: 81001

== ENCOUNTER → 2024-07-23 14:50 | Outpatient (CLI) | payer MEDICARE, OTHER, SELFPAY ==
[2021-08-20 17:14] VITALS: BMI 30.7
[2024-07-23 16:59] LABS: Add Manual Diff / Slide Review NO; Basophils Absolute Auto 0 /uL (0-100); Basophils Percent Auto 0.5 % (0-2); Eosinophils Absolute Auto 500 /uL (0-450); Eosinophils Percent Auto 6.3 % (2-4); Hematocrit 37.7 % (41-53); Hemoglobin 12.9 g/dL (13.5-17.5); Lymphocytes Absolute Auto 2900 /uL (1100-4500); Lymphocytes Percent Auto 35.6 % (25-40); Mean Corpuscular HGB Conc 34.3 % (30-36); Mean Corpuscular Volume 96.2 fL (80-100); Monocytes Absolute Auto 600 /uL (0-900); Neutrophils Absolute Auto 4100 /uL (1500-7000); Neutrophils Percent Auto 50.6 % (50-75); Platelet Count 210 X10^3/uL (150-400); Red Blood Cell Count 3.92 X10^6/uL (4.5-5.9); Red Cell Distribution Width 14.5 % (11.6-14.8); White Blood Cell Count 8.2 X10^3/uL (4.5-11.0)
[2024-07-23 17:15] LABS: Alanine Aminotransferase 87 IU/L (<50); Albumin 3.1 g/dL (3.5-5.0); Alkaline Phosphatase 555 U/L (38-126); Aspartate Aminotransferase 94 IU/L (17-59); BUN Creatinine Ratio 26.9 (6-22); Bilirubin Conjugated 0.4 md/dL (0.0-0.3); Bilirubin Total 2.2 mg/dL (0.2-1.3); Bilirubin Unconjugated 0.2 mg/dL (0.0-1.1); Blood Urea Nitrogen 18 mg/dL (9-20); Carbon Dioxide 28 mmol/L (22-32); Chloride 99 mmol/L (98-107); Estimated Glomerular Filt Rate > 60 mL/min (>60); Glucose 144 mg/dL (80-110); HEMOLYSIS < 15 (0-50); Potassium 3.9 mmol/L (3.4-5.1); Sodium 133 mmol/L (137-145); Total Protein 6.1 g/dL (6.3-8.2)
== END ==
PROVIDERS: PCP Internal Medicine; Referring Provider Internal Medicine; Visit Provider Internal Medicine
DX: K73.9 Chronic hepatitis, unspecified (principal); Z79.01 Long term (current) use of anticoagulants; I48.0 Paroxysmal atrial fibrillation; E78.2 Mixed hyperlipidemia
CPT/HCPCS: 36415; 80048; 80076; 85025

== ENCOUNTER → 2024-07-30 06:59 | Outpatient (CLI) | payer MEDICARE, OTHER, SELFPAY ==
[2021-08-20 17:14] VITALS: BMI 30.7
--- NOTE | 2024-07-30 07:00 | DI.US.S_ITS ---
PROCEDURE: US ABDOMEN LIMITED INDICATIONS: abnormal liver labs TECHNIQUE: Real-time scanning was performed of the abdominal and retroperitoneal organs, with image documentation. COMPARISON: [facility], US, US ABDOMEN COMPLETE, 01/11/2019, 7:32. FINDINGS: Liver: Liver is normal in size. Diffusely increased liver parenchymal echotexture is seen. No discrete hepatic lesion. Main portal vein is patent and show normal hepatopetal flow. Gallbladder: Gallbladder is distended. Sludge material is noted in dependent portion of gallbladder lumen. Suggestion of mild gallbladder wall thickening measures up to 3.9 mm in thickness. No pericholecystic fluid or sonographic Fonseca sign. Biliary ducts: Intrahepatic bile ducts are distended. Extrahepatic bile duct caliber measures 13.6 mm. Normal is 6-7 mm or less in diameter, or 10 mm or less post-cholecystectomy. Pancreas: Visualized portions of the pancreas are sonographically normal. Miscellaneous: No free abdominal fluid. IMPRESSION: 1. Distended gallbladder with sludge material and gallbladder wall thickening . No sonographic Fonseca sign or pericholecystic fluid. Finding may represent chronic cholecystitis versus gallbladder contracted over the disorder. 2. Intrahepatic biliary ductal dilatation and dilatation of common bile duct. No obvious choledocholithiasis is seen. MRCP or ERCP can be done for further evaluation if indicated. 3. Hepatic steatosis. Dictated by: Brennan Barr M.D. on 07/30/2024 at 8:15 Approved by: Brennan Barr M.D. on 07/30/2024 at 8:17
== END ==
PROVIDERS: PCP Internal Medicine; Referring Provider Internal Medicine; Visit Provider Internal Medicine
DX: K82.8 Other specified diseases of gallbladder (principal); K83.8 Other specified diseases of biliary tract; K76.0 Fatty (change of) liver, not elsewhere classified; R17 Unspecified jaundice; R74.01 Elevation of levels of liver transaminase levels
CPT/HCPCS: 76705

== ENCOUNTER → 2024-12-22 07:25 | Outpatient (CLI) | payer MEDICARE, OTHER, SELFPAY ==
[2021-08-20 17:14] VITALS: BMI 30.7
--- NOTE | 2024-12-22 07:28 | DI.US.S_ITS ---
PROCEDURE: US ABDOMEN LIMITED INDICATIONS: ELEVATED GGT AND LIVER ENZYMES TECHNIQUE: Real-time scanning was performed of the abdominal and retroperitoneal organs, with image documentation. COMPARISON: [facility], , US ABDOMEN LIMITED, 07/30/2024, 7:08. FINDINGS: Liver: Hepatic parenchyma shows diffuse increased echogenicity consistent with fatty infiltration. Minimal perihepatic free fluid. Gallbladder: Biliary sludge without cholelithiasis or gallbladder wall thickening Biliary ducts: Intrahepatic bile ducts are non-dilated. Extrahepatic bile duct caliber measures 17 mm. Normal is 6-7 mm or less in diameter, or 10 mm or less post-cholecystectomy. IMPRESSION: Biliary sludge and dilated CBD at 1.7 cm, similar to the prior exam Approved by: Arjun Peterosn M.D. on 12/22/2024 at 10:52
== END ==
LOC: US 07:27
PROVIDERS: PCP Internal Medicine
DX: R74.8 Abnormal levels of other serum enzymes (principal); K82.8 Other specified diseases of gallbladder; K83.8 Other specified diseases of biliary tract
CPT/HCPCS: 76705

== ENCOUNTER 2025-03-01 05:14 | Emergency (ER) | payer MEDICARE, OTHER, SELFPAY ==
[2021-08-20 17:14] VITALS: BMI 30.7
[2025-03-01 05:20] VITALS: BP 138/67; PULSE 71; RESP 20; TEMP 36.8; O2SAT 99; BMI 24.3
[2025-03-01 05:25] VITALS: PULSE 71; O2SAT 99
[2025-03-01 05:30] VITALS: PULSE 72; O2SAT 100
--- NOTE | 2025-03-01 05:36 | ED.EXTPRO ---
HPI - Extremity Problem General Chief complaint: Extremity Problem,Nontraumatic Stated complaint: Right leg pain Time Seen by Provider: 03/01/25 05:25 Source: patient Mode of arrival: Ambulatory History of Present Illness HPI Narrative: 80-year-old male with history of prior left leg clot, had been on Xarelto for paroxysmal atrial fibrillation, hsitory of subdural heamtoma evacuation surgery 2019, has been on Xarelto post-SDH however, decided on his own to stop Xarelto one month ago when he felt that a combination of nitrous oxide and domingo would help him stay adequately anticoagulated, now complains of 2 days duration nontraumaic right medial thigh pain, concern for blood clot. Seeking RLE venous doppler ultrasound evaluation for clot. Denies chest pain shortness of breath. No fevers or chills. Related Data Home Medications ?Medication ?Instructions ?Recorded ?Confirmed Multi-Mineral Complex 1 cap PO DAILY 07/11/22 06/21/24 Vitamin A 1 cap PO Q OTHER DAY 07/11/22 06/21/24 cholecalciferol (vitamin D3) 125 125 mcg PO DAILY 07/11/22 06/21/24 mcg (5,000 unit) capsule melatonin 5 mg capsule 5 mg PO BEDTIME 07/11/22 06/21/24 quercetin 500 mg capsule 500 mg PO DAILY 07/11/22 06/21/24 zinc gluconate 75 mg PO DAILY 07/11/22 06/21/24 Previous Rx's ?Medication ?Instructions ?Recorded tadalafil 20 mg tablet (Cialis) 10 - 20 mg (0.5 - 1 x 20 mg) PO 01/23/17 QDAY PRN sexual activity #5 tabs rivaroxaban 20 mg tablet (Xarelto) 20 mg PO DAILY #90 tabs 08/18/23 Allergies Allergy/AdvReac Type Severity Reaction Status Date / Time No Known Drug Allergies Allergy Verified 03/01/25 05:20 Patient History Medical History (Updated 03/01/25 @ 06:40 by Amol Patel MD) Chronic hepatitis group home current use of anticoagulant Subdural hematoma (~10/2019) Paroxysmal atrial fibrillation History of pulmonary embolism (~03/2019) History of DVT of lower extremity (~10/2018) Mixed hyperlipidemia (06/01/02) BPH w urinary obs/LUTS (02/05/04) Surgical History History of kenneth hole surgery (11/30/19) Family History Father Prostate cancer Mother No problems noted. Social History household members: spouse Smoking Status: Never smoker alcohol intake: current Smoking Status: Never smoker alcohol intake frequency: 0-2 drinks per day Alcohol type: beer Exam Narrative Exam Narrative: GENERAL: Well-developed patient, in mild distress. HEAD: Atraumatic. Normocephalic. EYES: Pupils equal round and reactive. Extraocular motions intact. No scleral icterus. No injection or drainage. ENT: Nose without bleeding, purulent drainage. Throat without erythema, tonsillar hypertrophy or exudate. Airway patent. NECK: Trachea midline. Non tender CARDIOVASCULAR: Regular rate and rhythm without murmurs, gallops, or rubs. RESPIRATORY: Clear to auscultation. Breath sounds equal bilaterally. No wheezes, rales, or rhonchi. GASTROINTESTINAL: Abdomen soft, non-tender, nondistended. EXTREMITIES: No edema or joint tenderness. Right lower extremity similar size to the left, some tenderness right medial thigh, without visible erythema. BACK: Nontender without deformity or crepitance. No flank tenderness. NEURO: AOx3. Motor functions grossly nonfocal. SKIN: No rash or erythema of visible areas Initial Vital Signs Initial Vital Signs: Vital Signs Temperature 98.3 F 03/01/25 05:20 Pulse Rate 71 03/01/25 05:20 Respiratory Rate 20 03/01/25 05:20 Blood Pressure 138/67 03/01/25 05:20 Pulse Oximetry 99 03/01/25 05:20 Oxygen Delivery Method Room Air 03/01/25 05:20 Course Orders Ordered: Discontinued Medications Rivaroxaban (Rivaroxaban 10 Mg Tablet) 20 mg PO NOW ONE Stop: 03/01/25 06:27 Last Admin: 03/01/25 06:38 Dose: Not Given Documented By: LS Vital Signs Vital signs: Vital Signs - 8 hr 03/01/25 05:20 03/01/25 05:25 03/01/25 05:30 Temperature 98.3 F Pulse Rate 71 71 72 Respiratory Rate 20 Blood Pressure 138/67 Pulse Oximetry 99 99 100 Oxygen Delivery Method Room Air 03/01/25 06:00 03/01/25 06:17 03/01/25 06:17 Temperature Pulse Rate 68 83 Respiratory Rate 18 Blood Pressure 114/61 Pulse Oximetry 98 97 Oxygen Delivery Method Room Air MDM - Extremity (Nontraumatic) MDM Narrative Medical decision making narrative: Nontraumatic right medial thigh pain, history of previous left lower extremity DVT, also history of paroxysmal atrial fibrillation on Xarelto, prior subdural 2020 but subsequently back on Xarelto, decided to stop the Xarelto 1 month ago after he felt on his own research that nitrous oxide long with domingo would be adequate treatment to help prevent clot formation. Afebrile, sirs screen negative. No chest pain or shortness of breath. No tachycardia or hypoxia noted on vitals. Ultrasound right lower extremity venous Doppler study ordered. Right lower extremity venous Doppler. Impressions: ?Thrombus within the greater saphenous vein at the junction of the common femoral vein. See tele radiology report Superficial venous clot but reaches CFV junction, is also at risk for embolization, also hx paroxysmal Afib still an indication to restart Xarelto as well. Rivaroxaban 20 mg dose ordered. Patient has supply at home of rivaroxaban that he used to take, advised resumption of daily dosing. Follow up with PCP advised, recheck leg swelling symptoms. Could consider referral to vascular surgery for thrombectomy indication, though no vascular surgeons on staff here. DC home with . Return precautions discussed. Discharge Plan Departure Patient Disposition: Home Clinical Impression: Venous thrombosis Activity Restrictions/Additional Instructions: Prior history of left leg clot. Prior history of paroxysmal atrial fibrillation for which she has been prescribed Xarelto blood thinning medication. You had decided on your own research to stop Xarelto about 1 month ago, using domingo and nitrous oxide in place of Xarelto. You now have right medial thigh pain without any known trauma. On ultrasound there is blood clot in the greater saphenous vein that extends to the junction of the common femoral vein. Generally the greater saphenous vein is considered a superficial vein, however when it develops clot within 3 cm of the common femoral vein is treated like deep vein thrombosis with chronic anticoagulation. One option for chronic anticoagulation is direct acting anticoagulant such as Xarelto. Xarelto was restarted. History of paroxysmal atrial fibrillation, and indication for long-term Xarelto anticoagulation as well. Recheck symptoms in the next few days with your regular provider. Could consider referral for vascular surgery consultation, to consider surgical thrombectomy. There are no vascular surgeons on-call here at this facility. Take Tylenol as needed for pain control. Try to avoid Motrin/naproxen medications while on blood thinner medications, since this might increase your risk of serious gastrointestinal bleeding. Consider warm packs and elevation to the affected clot area. Recheck with your regular doctor in the next few days. Return to this/nearest emergency department for any change worsening symptoms or any concerns prior. Prescriptions: No Action Xarelto 20 mg tablet 20 mg PO DAILY Qty: 90 3RF Rx Instructions: must administer with a meal/food. quercetin 500 mg capsule 500 mg PO DAILY cholecalciferol (vitamin D3) 125 mcg (5,000 unit) capsule 125 mcg PO DAILY zinc gluconate 75 mg PO DAILY Multi-Mineral Complex 1 cap PO DAILY melatonin 5 mg capsule 5 mg PO BEDTIME Vitamin A 3,000 mcg 1 cap PO Q OTHER DAY tadalafil [Cialis] 20 mg tablet 10 - 20 mg PO QDAY PRN (Reason: sexual activity) Qty: 5 11RF Referrals: Mainor Balderas MD [Primary Care Provider, Internal Medicine] Stand Alone Forms: Patient Portal/API
--- NOTE | 2025-03-01 05:52 | DI.US.S_ITS ---
PROCEDURE: US PERIPH VENOUS LOW EXTREM RT INDICATIONS: RLE swelling, off Xarelto x1mo TECHNIQUE: Real-time imaging, as well as color and pulse Doppler interrogation, were performed of the lower extremity deep veins from the inguinal ligament to the popliteal fossa, with documentation of the visualized calf veins. COMPARISON: None. FINDINGS: There is a superficial thrombus within the greater saphenous vein, approximately 5 millimeters from the junction. The common femoral, femoral, popliteal, and the visualized calf veins are normally compressible, and free of intraluminal thrombus. Color and pulse Doppler demonstrate normal phasic intraluminal flow. There is normal augmentation response to distal compression maneuver. IMPRESSION: Superficial thrombosis within the greater saphenous vein, approximately 5 millimeters from the common femoral vein junction. Agree with preliminary report. Dictated by: Tim Domingo M.D. on 03/01/2025 at 7:52 Approved by: Tim Domingo M.D. on 03/01/2025 at 7:53
--- NOTE | 2025-03-01 05:59 | PC.NURSE ---
Ultrasound at bedside
[2025-03-01 06:00] VITALS: PULSE 68; O2SAT 98
[2025-03-01 06:17] VITALS: BP 114/61; PULSE 83; RESP 18; O2SAT 97
--- NOTE | 2025-03-01 06:38 | PC.NURSE ---
Pt states he will take his own dose of Rivaroxaban that he brought with him. States last time he was dosed with medicine in the ED his insurance refused to pay for it. Confirmed correct medication and dosing with pt prior to pt taking med.
== END 2025-03-01 06:55 | disposition home or self-care (01) ==
PROVIDERS: Emergency Provider Emergency Medicine; PCP Internal Medicine
DX: I82.90 Acute embolism and thrombosis of unspecified vein (principal); Z79.01 Long term (current) use of anticoagulants
CPT/HCPCS: 93971; 99281; 99283

== ENCOUNTER → 2025-04-01 06:55 | Outpatient (CLI) | payer MEDICARE, OTHER, SELFPAY ==
[2021-08-20 17:14] VITALS: BMI 30.7
[2025-04-01 07:40] LABS: Hematocrit 39.6 % (41-53); Hemoglobin 13.7 g/dL (13.5-17.5); Mean Corpuscular HGB Conc 34.7 % (30-36); Mean Corpuscular Hemoglobin 33.1 PG (26-34); Mean Corpuscular Volume 95.6 fL (80-100); Platelet Count 175 X10^3/uL (150-400)
[2025-04-01 08:41] LABS: Alanine Aminotransferase 62 IU/L (<50); Albumin 3.2 g/dL (3.5-5.0); Albumin Globulin Ratio 1.1 (1.0-2.8); Alkaline Phosphatase 534 U/L (38-126); Blood Urea Nitrogen 14 mg/dL (9-20); Calcium 8.5 mg/dL (8.4-10.2); Carbon Dioxide 28 mmol/L (22-32); Chloride 99 mmol/L (98-107); Cholesterol 233 mg/dL (140-199); Estimated Glomerular Filt Rate > 60 mL/min (>60); Globulin 3.0 g/dL (1.7-4.1); Glucose 91 mg/dL (70-99); HDL Cholesterol 44 mg/dL (40-60); HEMOLYSIS < 15 (0-50); Potassium 4.0 mmol/L (3.4-5.1); Sodium 133 mmol/L (137-145); Total Protein 6.2 g/dL (6.3-8.2); Triglycerides 78 mg/dL (35-150)
[2025-04-02 04:08] LABS: CRP, High Sensitivity 31.81 mg/L (0.00-3.00)
[2025-04-03 09:07] LABS: Insulin Level Total 4.8 uIU/mL (2.6-24.9)
== END ==
LOC: LAB 06:57
PROVIDERS: PCP Family Medicine; Referring Provider Family Medicine; Visit Provider Family Medicine
DX: D64.9 Anemia, unspecified (principal); E78.2 Mixed hyperlipidemia; K73.9 Chronic hepatitis, unspecified; E88.810 Metabolic syndrome; E66.9 Obesity, unspecified
CPT/HCPCS: 36415; 80053; 80061; 83525; 85027; 86140

== ENCOUNTER 2025-04-21 16:53 | Emergency (ER) | payer MEDICARE, OTHER, SELFPAY ==
[2021-08-20 17:14] VITALS: BMI 30.7
[2025-04-21 17:41] VITALS: BP 129/72; PULSE 91; RESP 18; TEMP 37; O2SAT 96; BMI 29.3
[2025-04-21 18:16] LABS: Hematocrit 40.3 % (41-53); Hemoglobin 13.9 g/dL (13.5-17.5); Mean Corpuscular HGB Conc 34.4 % (30-36); Mean Corpuscular Hemoglobin 32.9 PG (26-34); Mean Corpuscular Volume 95.6 fL (80-100); Platelet Count 192 X10^3/uL (150-400)
[2025-04-21 18:17] LABS: Add Manual Diff / Slide Review YES
[2025-04-21 18:21] LABS: Alanine Aminotransferase 46 IU/L (<50); Albumin 3.2 g/dL (3.5-5.0); Albumin Globulin Ratio 1.0 (1.0-2.8); Alkaline Phosphatase 424 U/L (38-126); Blood Urea Nitrogen 15 mg/dL (9-20); Calcium 8.1 mg/dL (8.4-10.2); Carbon Dioxide 27 mmol/L (22-32); Chloride 98 mmol/L (98-107); Estimated Glomerular Filt Rate > 60 mL/min (>60); Globulin 3.3 g/dL (1.7-4.1); Glucose 98 mg/dL (70-99); HEMOLYSIS 39 (0-50); Lipase 30 U/L (23-300); Potassium 4.2 mmol/L (3.4-5.1); Sodium 128 mmol/L (137-145); Total Protein 6.5 g/dL (6.3-8.2)
[2025-04-21 18:31] LABS: Eosinophils Percent Manual 3.0 % (2-4); Lymphocytes Percent Manual 33.0 % (25-45); Monocytes Percent Manual 8.0 % (2-11); Neutrophils Absolute Manual 3920 /uL (3000-5900); RBC Morphology Normal Morphology; Segmented Neutrophils Percent 56.0 % (38-70); Total Cells Counted 100
[2025-04-21 21:38] VITALS: BP 140/81; PULSE 77; RESP 18; O2SAT 98
--- NOTE | 2025-04-22 06:31 | ED_ITS ---
HPI - Abdominal Pain General Chief Complaint: Abdominal Pain Stated Complaint: Extended Stomach,fluid in belly,pos central edema Time Seen by Provider: 04/21/25 16:55 Source: patient Mode of arrival: Ambulatory Related Data Home Medications ?Medication ?Instructions ?Recorded ?Confirmed BioGaia Prodentis Oral Health 1 cap PO .QD 03/30/25 Probiotic Colloidal Iodine See Rx Instructions PO .QD 0 03/30/25 04/21/25 Dr Lemus'laura Silver Sauce See Rx Instructions PO .QD 0 03/30/25 04/21/25 Kefir See Rx Instructions PO .QD 0 03/30/25 04/21/25 Liposomal Vit C 1 cap PO .QD 03/30/25 Estevan D-3 & MK7 5000IU/180mcg 1 cap PO .QD 03/30/25 Methyl B12 5,000 mcg PO .QD 03/30/25 Methylene Blue 1% See Rx Instructions PO .QD 0 03/30/25 04/21/25 Melba Advanced Digestive Enzymes 1 cap PO .QD 5 04/21/25 magnesium glycinate 350 mg PO .QD 03/30/2504/21 zinc complex plus 2.5mg copper 50 mg PO .QD 03/30/25 0 04/21/25 Previous Rx's ?Medication ?Instructions ?Recorded rivaroxaban 20 mg tablet (Xarelto) 20 mg PO DAILY #30 tabs 04/21/25 Allergies Allergy/AdvReac Type Severity Reaction Status Date / Time No Known Drug Allergies Allergy Verified 04/21/25 17:41 Patient History Medical History (Updated 04/21/25 @ 21:37 by Madeleine Henson RN) Elevated alkaline phosphatase level Abdominal ascites 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 Social History household members: spouse Smoking Status: Never smoker alcohol intake: current Smoking Status: Never smoker alcohol intake frequency: 0-2 drinks per day Alcohol type: beer Exam Initial Vital Signs Initial Vital Signs: Vital Signs Temperature 98.6 F 04/21/25 17:41 Pulse Rate 91 H 04/21/25 17:41 Respiratory Rate 18 04/21/25 17:41 Blood Pressure 129/72 04/21/25 17:41 Pulse Oximetry 96 04/21/25 17:41 Oxygen Delivery Method Room Air 04/21/25 17:41 Course Orders Ordered: Discontinued Medications Ondansetron HCl (Ondansetron 4 Mg/2 Ml Inj) 4 mg IV NOW PRN PRN Reason: Nausea And Vomiting Ondansetron HCl (Ondansetron 4 Mg Odt) 4 mg PO NOW PRN PRN Reason: Nausea And Vomiting MDM - Abdominal Pain Lab Data 04/21/25 18:00 04/21/25 18:00 Labs: Lab Results 04/21/25 Range/Units 18:00 WBC 7.0 (4.5-11.0) X10^3/uL RBC 4.21 L (4.5-5.9) X10^6/uL Hgb 13.9 (13.5-17.5) g/dL Hct 40.3 L (41-53) % MCV 95.6 (80-100) fL MCH 32.9 (26-34) PG MCHC 34.4 (30-36) % RDW 14.0 (11.6-14.8) % Plt Count 192 (150-400) X10^3/uL Neut % (Auto) Not Reportable Lymph % (Auto) Not Reportable [place] % (Auto) Not Reportable Eos % (Auto) Not Reportable Baso % (Auto) Not Reportable Lymph # (Auto) Not Reportable [place] # (Auto) Not Reportable Baso # (Auto) Not Reportable Total Counted 100 Seg Neutrophils % 56.0 (38-70) % Lymphocytes % (Manual) 33.0 (25-45) % Monocytes % (Manual) 8.0 (2-11) % Eosinophils % (Manual) 3.0 (2-4) % Neutrophils # (Manual) 3920 (9991-7112) /uL RBC Morphology Normal morphology Sodium 128 L (137-145) mmol/L Potassium 4.2 (3.4-5.1) mmol/L Chloride 98 (98-107) mmol/L Carbon Dioxide 27 (22-32) mmol/L BUN 15 (9-20) mg/dL Creatinine 0.68 (0.66-1.25) mg/dL Estimated GFR > 60 (>60) mL/min BUN/Creatinine Ratio 22.1 H (6-22) Glucose 98 (70-99) mg/dL Calcium 8.1 L (8.4-10.2) mg/dL Total Bilirubin 1.9 H (0.2-1.3) mg/dL AST 71 H (17-59) IU/L ALT 46 (<50) IU/L Alkaline Phosphatase 424 H (38-126) U/L Total Protein 6.5 (6.3-8.2) g/dL Albumin 3.2 L (3.5-5.0) g/dL Globulin 3.3 (1.7-4.1) g/dL Albumin/Globulin Ratio 1.0 (1.0-2.8) Lipase 30 (23-300) U/L Discharge Plan Departure Patient Disposition: Left Without Being Seen Clinical Impression: Patient left without being seen Prescriptions: No Action zinc complex plus 2.5mg copper 50 mg PO .QD BioGaia Prodentis Oral Health Probiotic 1 cap PO .QD Liposomal Vit C 1 cap PO .QD Estevan D-3 & MK7 5000IU/180mcg 1 cap PO .QD Methyl B12 5,000 mcg PO .QD Melba Advanced Digestive Enzymes 1 cap PO .QD magnesium glycinate 350 mg PO .QD Methylene Blue 1% See Rx Instructions PO .QD Rx Instructions: orally QD; Dr Lemus's Silver Sauce See Rx Instructions PO .QD Rx Instructions: orally QD; Colloidal Iodine See Rx Instructions PO .QD Rx Instructions: orally QD; Kefir See Rx Instructions PO .QD Rx Instructions: orally QD; Xarelto 20 mg tablet 20 mg PO DAILY Qty: 30 3RF Rx Instructions: must administer with a meal/food.
--- NOTE | 2025-04-22 06:35 | ED.ABDPAIN ---
HPI - Abdominal Pain General Chief Complaint: Abdominal Pain Stated Complaint: Extended Stomach,fluid in belly,pos central edema Time Seen by Provider: 04/21/25 16:55 Source: patient Mode of arrival: Ambulatory Related Data Home Medications ?Medication ?Instructions ?Recorded ?Confirmed BioGaia Prodentis Oral Health 1 cap PO .QD 03/30/25 04/21/25 Probiotic Colloidal Iodine See Rx Instructions PO .QD 03/30/25 04/21/25 Dr Lemus'laura Silver Sauce See Rx Instructions PO .QD 03/30/25 04/21/25 Kefir See Rx Instructions PO .QD 03/30/25 04/21/25 Liposomal Vit C 1 cap PO .QD 03/30/25 04/21/25 Estevan D-3 & MK7 5000IU/180mcg 1 cap PO .QD 03/30/25 04/21/25 Methyl B12 5,000 mcg PO .QD 03/30/25 04/21/25 Methylene Blue 1% See Rx Instructions PO .QD 03/30/25 04/21/25 Melba Advanced Digestive Enzymes 1 cap PO .QD 03/30/25 04/21/25 magnesium glycinate 350 mg PO .QD 03/30/25 04/21/25 zinc complex plus 2.5mg copper 50 mg PO .QD 03/30/25 04/21/25 Previous Rx's ?Medication ?Instructions ?Recorded rivaroxaban 20 mg tablet (Xarelto) 20 mg PO DAILY #30 tabs 04/21/25 Allergies Allergy/AdvReac Type Severity Reaction Status Date / Time No Known Drug Allergies Allergy Verified 04/21/25 17:41 Patient History Medical History (Updated 04/21/25 @ 21:37 by Madeleine Henson RN) Elevated alkaline phosphatase level Abdominal ascites 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 Social History household members: spouse Smoking Status: Never smoker alcohol intake: current Smoking Status: Never smoker alcohol intake frequency: 0-2 drinks per day Alcohol type: beer Exam Initial Vital Signs Initial Vital Signs: Vital Signs Temperature 98.6 F 04/21/25 17:41 Pulse Rate 91 H 04/21/25 17:41 Respiratory Rate 18 04/21/25 17:41 Blood Pressure 129/72 04/21/25 17:41 Pulse Oximetry 96 04/21/25 17:41 Oxygen Delivery Method Room Air 04/21/25 17:41 Course Orders Ordered: Discontinued Medications Ondansetron HCl (Ondansetron 4 Mg/2 Ml Inj) 4 mg IV NOW PRN PRN Reason: Nausea And Vomiting Ondansetron HCl (Ondansetron 4 Mg Odt) 4 mg PO NOW PRN PRN Reason: Nausea And Vomiting MDM - Abdominal Pain Lab Data 04/21/25 18:00 04/21/25 18:00 Labs: Lab Results 04/21/25 Range/Units 18:00 WBC 7.0 (4.5-11.0) X10^3/uL RBC 4.21 L (4.5-5.9) X10^6/uL Hgb 13.9 (13.5-17.5) g/dL Hct 40.3 L (41-53) % MCV 95.6 (80-100) fL MCH 32.9 (26-34) PG MCHC 34.4 (30-36) % RDW 14.0 (11.6-14.8) % Plt Count 192 (150-400) X10^3/uL Neut % (Auto) Not Reportable Lymph % (Auto) Not Reportable [place] % (Auto) Not Reportable Eos % (Auto) Not Reportable Baso % (Auto) Not Reportable Lymph # (Auto) Not Reportable [place] # (Auto) Not Reportable Baso # (Auto) Not Reportable Total Counted 100 Seg Neutrophils % 56.0 (38-70) % Lymphocytes % (Manual) 33.0 (25-45) % Monocytes % (Manual) 8.0 (2-11) % Eosinophils % (Manual) 3.0 (2-4) % Neutrophils # (Manual) 3920 (5981-1269) /uL RBC Morphology Normal morphology Sodium 128 L (137-145) mmol/L Potassium 4.2 (3.4-5.1) mmol/L Chloride 98 (98-107) mmol/L Carbon Dioxide 27 (22-32) mmol/L BUN 15 (9-20) mg/dL Creatinine 0.68 (0.66-1.25) mg/dL Estimated GFR > 60 (>60) mL/min BUN/Creatinine Ratio 22.1 H (6-22) Glucose 98 (70-99) mg/dL Calcium 8.1 L (8.4-10.2) mg/dL Total Bilirubin 1.9 H (0.2-1.3) mg/dL AST 71 H (17-59) IU/L ALT 46 (<50) IU/L Alkaline Phosphatase 424 H (38-126) U/L Total Protein 6.5 (6.3-8.2) g/dL Albumin 3.2 L (3.5-5.0) g/dL Globulin 3.3 (1.7-4.1) g/dL Albumin/Globulin Ratio 1.0 (1.0-2.8) Lipase 30 (23-300) U/L Discharge Plan Departure Patient Disposition: Left Without Being Seen Clinical Impression: Patient left without being seen Prescriptions: No Action zinc complex plus 2.5mg copper 50 mg PO .QD BioGaia Prodentis Oral Health Probiotic 1 cap PO .QD Liposomal Vit C 1 cap PO .QD Estevan D-3 & MK7 5000IU/180mcg 1 cap PO .QD Methyl B12 5,000 mcg PO .QD Melba Advanced Digestive Enzymes 1 cap PO .QD magnesium glycinate 350 mg PO .QD Methylene Blue 1% See Rx Instructions PO .QD Rx Instructions: orally QD; Dr Lemus'laura Silver Sauce See Rx Instructions PO .QD Rx Instructions: orally QD; Colloidal Iodine See Rx Instructions PO .QD Rx Instructions: orally QD; Kefir See Rx Instructions PO .QD Rx Instructions: orally QD; Xarelto 20 mg tablet 20 mg PO DAILY Qty: 30 3RF Rx Instructions: must administer with a meal/food.
== END 2025-04-21 21:40 | disposition left against medical advice (07) ==
PROVIDERS: Emergency Medicine; Emergency Provider Family Medicine; PCP Family Medicine
DX: R14.0 Abdominal distension (gaseous) (principal)
CPT/HCPCS: 36415; 80053; 83690; 85007; 85025; 99283

== ENCOUNTER 2025-04-22 10:08 | Emergency (ER) | payer MEDICARE, OTHER, SELFPAY ==
[2021-08-20 17:14] VITALS: BMI 30.7
[2025-04-22] VITALS (28 sets, daily range): BP systolic 107–147; BP diastolic 56–93; PULSE 56–90; RESP 16–34; TEMP 36.8; O2SAT 95–100; BMI 28.8
--- NOTE | 2025-04-22 11:54 | DI.CT.S_ITS ---
PROCEDURE: CT ABDOMEN PELVIS W CON INDICATIONS: cAME IN FOR A PARACENTESIS TECHNIQUE: After the administration of intravenous contrast, axial sections acquired from the lung bases to the pubic symphysis. Coronal and sagittal reformats were performed. For radiation dose reduction, the following was used: automated exposure control, adjustment of mA and/or kV according to patient size. COMPARISON: [facility], CT, CT ABDOMEN PELVIS W CON, 04/19/2019, 12:40. FINDINGS: Image quality: Diagnostic. Lower Chest: No significant findings. ABDOMEN: Liver: Cirrhosis. Single phase contrast evaluation is suboptimal for detection of hepatocellular carcinoma. No large mass identified. Patent portal vein. Gallbladder: Cholelithiasis. Gallbladder hydrops. No wall thickening. Biliary ducts: Intrahepatic and extrahepatic biliary dilation. There is a hyperattenuating lesion at the level of the ampulla measuring 1.5 x 1.7 cm (series 2, image 81 and series 4, image 74). Pancreas: No ductal dilation. Spleen: Size is enlarged. Adrenal Glands: No adrenal nodules. Kidneys and Ureters: No hydronephrosis. No solid mass. No complex renal cystic lesion which requires follow up. Stomach and Bowel: Normal colonic caliber, without dilation. Colonic diverticulosis without evidence of diverticulitis. Portal colopathy of the ascending colon. Peritoneum: Large volume ascites. Ventral Wall: No significant ventral hernia. Abdominal Nodes: No retroperitoneal or mesenteric adenopathy by size criteria. Vessels: Aorta and inferior vena cava are normal in size. Portosystemic collaterals are present. PELVIS: Pelvic Organs: Unremarkable. Bladder: No bladder wall thickening, accounting for underdistention. Pelvic Nodes: No enlarged lymph nodes. Miscellaneous: No inguinal hernias are seen. Bones: No aggressive osseous abnormality. IMPRESSION: Large volume ascites. Intrahepatic and extrahepatic biliary dilation. There is a hyperattenuating lesion at the level of the ampulla measuring 1.5 x 1.7 cm. Findings raise a concern for periampullary mass such as cholangiocarcinoma. Differential includes a dense duodenal diverticulum, as a diverticulum was noted on prior CT. Recommend either MRI with contrast (pancreatic mass protocol) or ERCP for confirmation and possible tissue sampling. Cirrhosis with portal hypertension and portal colopathy. Single phase contrast evaluation is suboptimal for detection of hepatocellular carcinoma. No large mass identified. Patent portal vein. Cholelithiasis without wall thickening or adjacent fat stranding to suggest acute cholecystitis. Dictated by: Tim Domingo M.D. on 04/22/2025 at 12:41 Approved by: Tim Domingo M.D. on 04/22/2025 at 12:45
--- NOTE | 2025-04-22 11:57 | EKG_ITS ---
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
--- NOTE | 2025-04-22 11:57 | ED.GENADULT ---
HPI - General Adult General Chief complaint: Shortness of Breath/Dyspnea Stated complaint: Drain Edema , Stomach Time Seen by Provider: 04/22/25 10:14 History of Present Illness HPI narrative: 80 years old male with history of fatty liver came in today complaining of abdominal distention, shortness of breath for the last 6 weeks. He denied any chest pain, fever, chills, nausea vomiting, back pain, diarrhea, constipation, urine problem, decreased urine output, history of heart problem, lung problem. He denied history of heart failure, heart attack, heart stent or bypass surgery. He admits drinking about 2 beer per week and drinking wine rarely. Related Data Home Medications ?Medication ?Instructions ?Recorded ?Confirmed BioGaia Prodentis Oral Health 1 cap PO .QD 03/30/25 04/21/25 Probiotic Colloidal Iodine See Rx Instructions PO .QD 03/30/25 04/21/25 Dr Lemus'laura Silver Sauce See Rx Instructions PO .QD 03/30/25 04/21/25 Kefir See Rx Instructions PO .QD 03/30/25 04/21/25 Liposomal Vit C 1 cap PO .QD 03/30/25 04/21/25 Estevan D-3 & MK7 5000IU/180mcg 1 cap PO .QD 03/30/25 04/21/25 Methyl B12 5,000 mcg PO .QD 03/30/25 04/21/25 Methylene Blue 1% See Rx Instructions PO .QD 03/30/25 04/21/25 Melba Advanced Digestive Enzymes 1 cap PO .QD 03/30/25 04/21/25 magnesium glycinate 350 mg PO .QD 03/30/25 04/21/25 zinc complex plus 2.5mg copper 50 mg PO .QD 03/30/25 04/21/25 Previous Rx's ?Medication ?Instructions ?Recorded rivaroxaban 20 mg tablet (Xarelto) 20 mg PO DAILY #30 tabs 04/21/25 Allergies Allergy/AdvReac Type Severity Reaction Status Date / Time No Known Drug Allergies Allergy Verified 04/21/25 17:41 Review of Systems Review of Systems Narrative: Positive for abdominal swelling, leg swelling, shortness of breath. Negative for chest pain, fever, chills, nausea vomiting, diarrhea, urine problem, back pain, headache, dizziness, loss of consciousness. 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 Social History household members: spouse alcohol intake: current alcohol intake frequency: 0-2 drinks per day Alcohol type: beer Exam Initial Vital Signs Initial Vital Signs: Vital Signs Pulse Rate 90 04/22/25 10:17 Pulse Oximetry 99 04/22/25 10:17 GENERAL: Cooperative without acute distress. HEAD: Atraumatic. Normocephalic. NECK: Trachea midline. Non tender CARDIOVASCULAR: Regular rate and rhythm without murmurs, gallops, or rubs. RESPIRATORY: Clear to auscultation. Breath sounds equal bilaterally. No wheezes, rales, or rhonchi. GASTROINTESTINAL: Abdomen soft, non-tender. No guarding or rebound tenderness. Distended abdomen. Positive for fluid thrill. EXTREMITIES: 2+ edema on both legs. BACK: Nontender without deformity or crepitance. No flank tenderness. NEURO: AOx3. SKIN: No rash or erythema of visible areas Course Orders Ordered: Discontinued Medications Phytonadione 10 mg/ Dextrose 51 mls @ 102 mls/hr IV NOW ONE Stop: 04/22/25 13:59 Last Infusion: 04/22/25 16:03 Dose: Infused Documented By: Admin: 04/22/25 15:28 Dose: 102 mls/hr Documented By: CTS Ceftriaxone Sodium 2,000 mg/ (Sodium Chloride) 100 mls @ 200 mls/hr IV NOW ONE Stop: 04/22/25 18:55 Last Infusion: 04/22/25 20:06 Dose: Infused Documented By: Admin: 04/22/25 19:25 Dose: 200 mls/hr Documented By: FIOR Vital Signs Vital signs: Vital Signs - 8 hr 04/22/25 10:17 04/22/25 10:18 04/22/25 10:18 Pulse Rate 90 84 Respiratory Rate Blood Pressure 147/93 H Pulse Oximetry 99 98 Oxygen Delivery Method 04/22/25 10:20 04/22/25 11:00 04/22/25 11:00 Pulse Rate 83 74 Respiratory Rate 16 Blood Pressure 147/93 H 112/69 Pulse Oximetry 99 97 Oxygen Delivery Method Room Air 04/22/25 11:30 04/22/25 11:30 04/22/25 12:00 Pulse Rate 76 79 Respiratory Rate Blood Pressure 117/75 Pulse Oximetry 97 99 Oxygen Delivery Method Room Air 04/22/25 12:00 04/22/25 12:00 04/22/25 12:55 Pulse Rate 76 65 Respiratory Rate 19 Blood Pressure 129/72 129/72 Pulse Oximetry 99 98 Oxygen Delivery Method Room Air 04/22/25 12:55 04/22/25 13:00 04/22/25 13:30 Pulse Rate 74 60 Respiratory Rate 22 19 Blood Pressure 128/78 135/70 Pulse Oximetry 97 95 Oxygen Delivery Method Room Air 04/22/25 13:30 04/22/25 13:32 04/22/25 13:32 Pulse Rate 88 82 Respiratory Rate 19 Blood Pressure 135/70 Pulse Oximetry 96 Oxygen Delivery Method Medical Decision Making Lab Data 04/22/25 10:25 04/22/25 10:25 Labs: Lab Results 04/22/25 04/22/25 04/22/25 Range/Units 10: 14:30 14:30 WBC 7.2 (4.5-11.0) X10^3/uL RBC 4.44 L (4.5-5.9) X10^6/uL Hgb 14.4 (13.5-17.5) g/dL Hct 42.2 (41-53) % MCV 95.0 (80-100) fL MCH 32.4 (26-34) PG MCHC 34.1 (30-36) % RDW 13.7 (11.6-14.8) % Plt Count 243 (150-400) X10^3/uL Neut % (Auto) 64.0 (50-75) % Lymph % (Auto) 23.5 L (25-40) % Barron % (Auto) 8.5 (3-14) % Eos % (Auto) 3.2 (2-4) % Baso % (Auto) 0.8 (0-2) % Neut # (Auto) 4600 (2208-7489) /uL Lymph # (Auto) 1700 (9091-9401) /uL Barron # (Auto) 600 (0-900) /uL Eos # (Auto) 200 (0-450) /uL Baso # (Auto) 100 (0-100) /uL PT 31.0 H (9.4-12.5) SECONDS INR 2.8 H (0.9-1.3) Sodium 128 L (137-145) mmol/L Potassium 4.9 (3.4-5.1) mmol/L Chloride 98 (98-107) mmol/L Carbon Dioxide 25 (22-32) mmol/L BUN 15 (9-20) mg/dL Creatinine 1.17 (0.66-1.25) mg/dL Estimated GFR > 60 (>60) mL/min BUN/Creatinine Ratio 12.8 (6-22) Glucose 118 H (70-99) mg/dL Calcium 8.1 L (8.4-10.2) mg/dL Total Bilirubin 2.2 H (0.2-1.3) mg/dL AST 100 H (17-59) IU/L ALT 49 (<50) IU/L Alkaline Phosphatase 416 H (38-126) U/L Troponin I 0.020 (0.01-0.034) ng/mL Total Protein 6.9 (6.3-8.2) g/dL Albumin 3.3 L (3.5-5.0) g/dL Globulin 3.6 (1.7-4.1) g/dL Albumin/Globulin Ratio 0.9 L (1.0-2.8) Fluid Color Yellow Fluid Appearance Clear Fluid RBC 145 /uL Fld Tot Nucleated Cell 311 /uL Fluid Neutrophils % 1 % Fluid Lymphocytes % 69 % Fluid Eosinophils % Not Reportable Fluid Meso/Macro/Barron % 30 % Body Fluid Clot No clots present Ref Test (Refrig) Comment Comment (.) Imaging Data Chest x-ray: Radiologist's Impression: PROCEDURE: XR CHEST 1V INDICATIONS: Shortness of breath TECHNIQUE: One view of the chest was acquired. COMPARISON: [facility], CT, CT ABDOMEN PELVIS W CON, 04/22/2025, 12:17. [facility], CR, XR CHEST 1V, 08/20/2021, 7:57. FINDINGS: Surgical changes and devices: None. Lungs and pleura: Lungs are clear. No pleural effusions or pneumothorax. Bibasilar atelectasis. Low lung volumes. Mediastinum: Mediastinal contours appear normal. Heart size is enlarged. Bones and chest wall: No suspicious bony lesions. Overlying soft tissues appear unremarkable. IMPRESSION: No acute cardiopulmonary abnormality is seen. Dictated by: Tim Domingo M.D. on 04/22/2025 at 12:40 Approved by: Tim Domingo M.D. on 04/22/2025 at 12:41 CT scan - abdomen/pelvis: Radiologist's Impression: PROCEDURE: CT ABDOMEN PELVIS W CON INDICATIONS: cAME IN FOR A PARACENTESIS TECHNIQUE: After the administration of intravenous contrast, axial sections acquired from the lung bases to the pubic symphysis. Coronal and sagittal reformats were performed. For radiation dose reduction, the following was used: automated exposure control, adjustment of mA and/or kV according to patient size. COMPARISON: [facility], CT, CT ABDOMEN PELVIS W CON, 04/19/2019, 12:40. FINDINGS: Image quality: Diagnostic. Lower Chest: No significant findings. ABDOMEN: Liver: Cirrhosis. Single phase contrast evaluation is suboptimal for detection of hepatocellular carcinoma. No large mass identified. Patent portal vein. Gallbladder: Cholelithiasis. Gallbladder hydrops. No wall thickening. Biliary ducts: Intrahepatic and extrahepatic biliary dilation. There is a hyperattenuating lesion at the level of the ampulla measuring 1.5 x 1.7 cm (series 2, image 81 and series 4, image 74). Pancreas: No ductal dilation. Spleen: Size is enlarged. Adrenal Glands: No adrenal nodules. Kidneys and Ureters: No hydronephrosis. No solid mass. No complex renal cystic lesion which requires follow up. Stomach and Bowel: Normal colonic caliber, without dilation. Colonic diverticulosis without evidence of diverticulitis. Portal colopathy of the ascending colon. Peritoneum: Large volume ascites. Ventral Wall: No significant ventral hernia. Abdominal Nodes: No retroperitoneal or mesenteric adenopathy by size criteria. Vessels: Aorta and inferior vena cava are normal in size. Portosystemic collaterals are present. PELVIS: Pelvic Organs: Unremarkable. Bladder: No bladder wall thickening, accounting for underdistention. Pelvic Nodes: No enlarged lymph nodes. Miscellaneous: No inguinal hernias are seen. Bones: No aggressive osseous abnormality. IMPRESSION: Large volume ascites. Intrahepatic and extrahepatic biliary dilation. There is a hyperattenuating lesion at the level of the ampulla measuring 1.5 x 1.7 cm. Findings raise a concern for periampullary mass such as cholangiocarcinoma. Differential includes a dense duodenal diverticulum, as a diverticulum was noted on prior CT. Recommend either MRI with contrast (pancreatic mass protocol) or ERCP for confirmation and possible tissue sampling. Cirrhosis with portal hypertension and portal colopathy. Single phase contrast evaluation is suboptimal for detection of hepatocellular carcinoma. No large mass identified. Patent portal vein. Cholelithiasis without wall thickening or adjacent fat stranding to suggest acute cholecystitis. Dictated by: Tim Domingo M.D. on 04/22/2025 at 12:41 Approved by: Tim Domingo M.D. on 04/22/2025 at 12:45 MRCP: Radiologist's Impression: PROCEDURE: MR AB PANCREATIC/MRCP PROTOCOL INDICATIONS: Abnormal LFT, barely dilatation, periampulla mass TECHNIQUE: Coronal HASTE through the abdomen, axial 2-D FLASH in- and [id number], and breath-hold T2 FSE with fat saturation through the biliary system and pancreas. Oblique coronal and axial thin-slice HASTE, radial thick-slab HASTE centered on the extrahepatic bile ducts. Intravenous secretin: Not requested. COMPARISON: [facility], CT, CT ABDOMEN PELVIS W CON, 04/22/2025, 12:17. [facility], CT, CT ABDOMEN PELVIS W CON, 04/19/2019, 12:40. FINDINGS: Image quality: Degraded by dielectric artifact and motion Lower chest: Trace effusions. Liver: No definite mass seen on diffusion images. Cirrhotic liver contour. Gallbladder and biliary system: Gallbladder is distended. Multiple stones are seen. Dilated CBD measuring 1.4 cm in the mid aspect. At the distal CBD near the ampulla, there is a 2 cm low intensity lesion There is no discrete measurable soft tissue component. Pancreas: No ductal dilation. Spleen: Mildly enlarged at 14 cm Adrenals: No discrete nodules Kidneys: No solid renal mass. No hydronephrosis Vessels and lymph nodes: Numerous portal venous varices. No obvious enlarged lymph nodes by size criteria. Bowel and peritoneum: No small bowel obstruction. Large ascites. The ascites causes significant artifact. Body wall: Diffuse anasarca Bones: There are degenerative changes IMPRESSION: Nearly nondiagnostic MRI due to significant motion artifact and dielectric artifact (from patient's large ascites) Within this limitation, the 2 cm lesion at the ampulla has low signal intensity on MRI with high density on CT, more compatible with a stone than soft tissue lesion. Suggest ERCP to further evaluate given abnormal LFTs. Follow-up abdominal MRI or CT is recommended to reassess the ampullary region and for HCC surveillance, in the setting of cirrhosis. Splenomegaly, large ascites, and portal venous varices are also seen. Other findings above. Dictated by: Manuel Yoon M.D. on 04/22/2025 at 19:22 Approved by: Manuel Yoon M.D. on 04/22/2025 at 19:32 ECG Data Interpretation: EKG shows sinus bradycardia 58 beats per minute with right bundle nasir block. MDM Narrative Medical decision making narrative: 04/22/2025, 1:59 p.m. discussed the case with regional facilities specialist on-call, Dr. Tavares recommended transferred to the hospital for further evaluation and give vitamin K 10 mg IV now. I called back and let him know that the patient was having paracentesis for therapeutic and diagnosis paracentesis and we sent for the set of cell count, total protein, albumin, cytology, culture. 04/22/2025, 1631, talked to the [facility] transfer lutz. 04/22/2025, 1732 discussed the case with regional facilities specialist at [facility] accept the patient to the hospital. The accepting doctor will be on a hospitalist, Dr. Landin. 80 years old male came today complaining of shortness of breath, increased swelling abdomen, leg swelling without chest pain, fever, nausea vomiting. He denied drinking alcohol regularly. Abdominal exam showed positive fluid thrill but no tenderness on palpation, guarding or rebound tenderness. 2+ edema on both legs. His CV exam, lung exam were normal. He was having abdominal paracentesis by our interventional radiologist. His CT scan abdomen and pelvis came back shows cirrhosis with portal hypertension, intra and extrahepatic biliary dilatation, lesion at the ampulla 1.5 x 1.7 cm concerning for malignancy, Periampullary mass such as cholangiocarcinoma. His chest x-ray showed no acute finding. His CBC showed no leukocytosis and hemoglobin 14.4, normal platelets. His INR 2.8 and PTT 31. His sodium 128 otherwise normal kidney function. His calcium 8.1 along with hypo albumin. His LFTs show alkaline phosphatase 416, AST 100 and total bilirubin 2.2 with normal ALT. His troponin was negative. His currently awaiting for transfer to [facility]. I signed out to my colleague during the shift change. 04/23/2025, 9:11 a.m. [facility], cell count result and MRCP. results and the treatment that the patient was given Rocephin 2 g IV. Critical Care Time Critical Care Time Attestation: I spent at least 35 minute critical care time on this patient. Discharge Plan Departure Patient Disposition: [facility] Clinical Impression: Abdominal ascites, Cirrhosis, Breath shortness, Pedal edema, Abnormal LFTs, Coagulopathy Prescriptions: No Action zinc complex plus 2.5mg copper 50 mg PO .QD BioGaia Prodentis Oral Health Probiotic 1 cap PO .QD Liposomal Vit C 1 cap PO .QD Estevan D-3 & MK7 5000IU/180mcg 1 cap PO .QD Methyl B12 5,000 mcg PO .QD Mleba Advanced Digestive Enzymes 1 cap PO .QD magnesium glycinate 350 mg PO .QD Methylene Blue 1% See Rx Instructions PO .QD Rx Instructions: orally QD; Dr Lemus's Silver Sauce See Rx Instructions PO .QD Rx Instructions: orally QD; Colloidal Iodine See Rx Instructions PO .QD Rx Instructions: orally QD; Kefir See Rx Instructions PO .QD Rx Instructions: orally QD; Xarelto 20 mg tablet 20 mg PO DAILY Qty: 30 3RF Rx Instructions: must administer with a meal/food. Referrals: Ophelia Godinez DO [Primary Care Provider, Medical]
[2025-04-22 12:08] LABS: INR 2.8 (0.9-1.3); Prothrombin Time 31.0 SECONDS (9.4-12.5)
[2025-04-22 12:09] LABS: Add Manual Diff / Slide Review NO; Hematocrit 42.2 % (41-53); Hemoglobin 14.4 g/dL (13.5-17.5); Lymphocytes Absolute Auto 1700 /uL (1100-4500); Mean Corpuscular HGB Conc 34.1 % (30-36); Mean Corpuscular Hemoglobin 32.4 PG (26-34); Mean Corpuscular Volume 95.0 fL (80-100); Platelet Count 243 X10^3/uL (150-400)
[2025-04-22 12:15] LABS: Alanine Aminotransferase 49 IU/L (<50); Albumin 3.3 g/dL (3.5-5.0); Albumin Globulin Ratio 0.9 (1.0-2.8); Alkaline Phosphatase 416 U/L (38-126); Blood Urea Nitrogen 15 mg/dL (9-20); Calcium 8.1 mg/dL (8.4-10.2); Carbon Dioxide 25 mmol/L (22-32); Chloride 98 mmol/L (98-107); Globulin 3.6 g/dL (1.7-4.1); Glucose 118 mg/dL (70-99); Sodium 128 mmol/L (137-145); Total Protein 6.9 g/dL (6.3-8.2)
[2025-04-22 12:20] LABS: Estimated Glomerular Filt Rate > 60 mL/min (>60)
[2025-04-22 12:21] LABS: HEMOLYSIS 211 (0-50); Potassium 4.9 mmol/L (3.4-5.1)
--- NOTE | 2025-04-22 12:21 | PATH_ITS ---
Note [facility] Accession Number: [id number] TESTS RESULT FLAG UNITS REF RANGE LAB Clinician Provided Cytology Information No. of containers..01 Body Fluid in a Sterile Container Source: ABDOMINAL FLUID DIAGNOSIS: ABDOMINAL FLUID, PARACENTESIS. NEGATIVE FOR MALIGNANT CELLS. THIS INTERPRETATION INCLUDES EVALUATION OF A CELL BLOCK. Pathologist ICD10: R18.8 Signed out by: Terrence Carbajal MD, Pathologist NPI- [id number] Performed by: Vinay Oden, Imaging Tech ([facility]) Gross description: 50 CC, YELLOW, HAZY RECEIVED: FRESH IN BLUE CAP CONTAINER.VO /VDU 04/25/2025 0902 Local FLAG LEGEND: L-Low Normal,H-High Normal,LL-Alert Low,HH-Alert High <-Panic Low,>-Panic High,A-Abnormal,AA-Critical Abnormal Performed at: 01 =Z [facility] [address] [facility], [place] [address] Russel Morse MD, Performed at: [address] [facility] [place] [address], [place], [place] [id number] MD Russel Morse MD Phone: [phone]
[2025-04-22 12:26] LABS: Troponin I 0.020 ng/mL (0.01-0.034)
--- NOTE | 2025-04-22 12:29 | DI.US.S_ITS ---
PROCEDURE: US PARACENTESIS INDICATIONS: new ascites TECHNIQUE: The indications, alternatives, benefits, risks, and complications of the procedure were explained to the patient. Written informed consent was obtained and placed in the chart. The abdomen and pelvis were examined sonographically, and an appropriate site was chosen for paracentesis. The skin was prepared and draped in the usual sterile fashion, and 1% lidocaine was infiltrated from the skin down through the peritoneal surface. A 19-gauge catheter-covered needle was then introduced into the peritoneal space, the catheter was advanced and the needle was withdrawn, and thereafter peritoneal fluid was withdrawn. The catheter was then removed and a dressing was applied. The fluid was discarded if the clinician did not order diagnostic testing of the fluid. COMPARISON: None. FINDINGS: Access site: Right lower quadrant Needle: One-Step centesis catheter with introducer needle. Fluid volume and description: 5 liters clear, yellow fluid. Fluid sent for diagnostic testing: S Medications: 1% lidocaine for local anaesthesia. Complications: None. IMPRESSION: Successful ultrasound-guided paracentesis. Dictated by: Tim Domingo M.D. on 04/25/2025 at 8:20 Approved by: Tim Domingo M.D. on 04/25/2025 at 8:20
--- NOTE | 2025-04-22 15:03 | PC.NURSE ---
1410: Paracentesis preformed by interventional radiologist and provider. 5 liters of fluid pulled off. Patient tolerated procedure well.
[2025-04-22] MEDS: PHYTONADIONE (VIT K1) 10 MG in DEXTROSE 5 % IN WATER 50 ML 102 MG IV (15:28)
--- NOTE | 2025-04-22 16:32 | DI.MRI.S_ITS ---
PROCEDURE: MR AB PANCREATIC/MRCP PROTOCOL INDICATIONS: Abnormal LFT, barely dilatation, periampulla mass TECHNIQUE: Coronal HASTE through the abdomen, axial 2-D FLASH in- and [id number], and breath-hold T2 FSE with fat saturation through the biliary system and pancreas. Oblique coronal and axial thin-slice HASTE, radial thick-slab HASTE centered on the extrahepatic bile ducts. Intravenous secretin: Not requested. COMPARISON: [facility], CT, CT ABDOMEN PELVIS W CON, 04/22/2025, 12:17. [facility], CT, CT ABDOMEN PELVIS W CON, 04/19/2019, 12:40. FINDINGS: Image quality: Degraded by dielectric artifact and motion Lower chest: Trace effusions. Liver: No definite mass seen on diffusion images. Cirrhotic liver contour. Gallbladder and biliary system: Gallbladder is distended. Multiple stones are seen. Dilated CBD measuring 1.4 cm in the mid aspect. At the distal CBD near the ampulla, there is a 2 cm low intensity lesion There is no discrete measurable soft tissue component. Pancreas: No ductal dilation. Spleen: Mildly enlarged at 14 cm Adrenals: No discrete nodules Kidneys: No solid renal mass. No hydronephrosis Vessels and lymph nodes: Numerous portal venous varices. No obvious enlarged lymph nodes by size criteria. Bowel and peritoneum: No small bowel obstruction. Large ascites. The ascites causes significant artifact. Body wall: Diffuse anasarca Bones: There are degenerative changes IMPRESSION: Nearly nondiagnostic MRI due to significant motion artifact and dielectric artifact (from patient's large ascites) Within this limitation, the 2 cm lesion at the ampulla has low signal intensity on MRI with high density on CT, more compatible with a stone than soft tissue lesion. Suggest ERCP to further evaluate given abnormal LFTs. Follow-up abdominal MRI or CT is recommended to reassess the ampullary region and for HCC surveillance, in the setting of cirrhosis. Splenomegaly, large ascites, and portal venous varices are also seen. Other findings above. Dictated by: Manuel Yoon M.D. on 04/22/2025 at 19:22 Approved by: Manuel Yoon M.D. on 04/22/2025 at 19:32
[2025-04-22 17:25] LABS: Body Fluid Tot Nucleated Cells 311 /uL
[2025-04-22 17:30] LABS: Body Fluid Clotted? NO CLOTS PRESENT
[2025-04-22 18:18] LABS: Lymphocytes Body Fluid 69 %; MESO/MACRO/MONO Body Fluid 30 %; Neutrophils Body Fluid 1 %
--- NOTE | 2025-04-22 19:11 | PC.NURSE ---
Provider Abhi states patient can eat and drink. This RN gives patient snack and water.
[2025-04-22] MEDS: cefTRIAXone 2,000 MG in SODIUM CHLORIDE 0.9% 100 ML 200 MG IV (19:25)
== END 2025-04-22 21:23 | disposition short-term general hospital (02) ==
PROVIDERS: Emergency Provider Emergency Medicine; PCP Family Medicine
DX: R18.8 Other ascites (principal); K74.60 Unspecified cirrhosis of liver; R60.0 Localized edema; R06.02 Shortness of breath; D68.9 Coagulation defect, unspecified; Z79.01 Long term (current) use of anticoagulants
CPT/HCPCS: 36415; 49083; 71045; 74177; 74183; 80053; 84484; 85025; 85610; 89051; 93005; 96365; 96367; 99284; 99291; J0696; J3430; Q9967

== ENCOUNTER 2025-06-01 13:08 | Outpatient (CLI) | payer MEDICARE, OTHER, SELFPAY ==
[2025-05-04 12:59] VITALS: BMI 30.7
[2025-06-01] VITALS (9 sets, daily range): BP systolic 110–142; BP diastolic 73–93; PULSE 72–99; RESP 18; TEMP 36.8; O2SAT 96–99
--- NOTE | 2025-06-01 13:11 | DI.US.S_ITS ---
PROCEDURE: US PARACENTESIS W/ALBUMIN INDICATIONS: ascites; therapeutic procedure TECHNIQUE: The indications, alternatives, benefits, risks, and complications of the procedure were explained to the patient. Written informed consent was obtained and placed in the chart. The abdomen and pelvis were examined sonographically, and an appropriate site was chosen for paracentesis. The skin was prepared and draped in the usual sterile fashion, and 1% lidocaine was infiltrated from the skin down through the peritoneal surface. A 19-gauge catheter-covered needle was then introduced into the peritoneal space, the catheter was advanced and the needle was withdrawn, and thereafter peritoneal fluid was withdrawn. The catheter was then removed and a dressing was applied. The fluid was discarded if the clinician did not order diagnostic testing of the fluid. COMPARISON: [facility], PARACENTESIS W/ALBUMIN, 05/18/2025, 9:12. FINDINGS: Access site: Right lower quadrant Needle: One-Step centesis catheter with introducer needle. Fluid volume and description: 98920 cc of clear fluid Fluid sent for diagnostic testing: None Medications: 1% lidocaine for local anaesthesia. Complications: None. 50 milligrams of albumin was administered following paracentesis. IMPRESSION: Successful ultrasound-guided paracentesis. Dictated by: Denny Leach M.D. on 06/02/2025 at 8:25 Approved by: Denny Leach M.D. on 06/02/2025 at 8:26
[2025-06-01] MEDS: ALBUMIN HUMAN 50 GM/200 ML VIAL IV (14:26)
== END 2025-06-01 16:00 | disposition home or self-care (01) ==
PROVIDERS: PCP Family Medicine; Referring Provider Family Medicine; Visit Provider Family Medicine
DX: R18.8 Other ascites (principal)
CPT/HCPCS: 49083; 96365; 96366; P9041

== ENCOUNTER → 2025-06-06 08:47 | Outpatient (CLI) | payer MEDICARE, OTHER, SELFPAY ==
[2025-05-04 12:59] VITALS: BMI 30.7
[2025-06-06 09:57] LABS: Add Manual Diff / Slide Review NO; Hematocrit 41.4 % (41-53); Hemoglobin 14.3 g/dL (13.5-17.5); Lymphocytes Absolute Auto 2200 /uL (1100-4500); Mean Corpuscular HGB Conc 34.5 % (30-36); Mean Corpuscular Hemoglobin 31.8 PG (26-34); Mean Corpuscular Volume 92.2 fL (80-100); Platelet Count 235 X10^3/uL (150-400)
[2025-06-06 10:09] LABS: INR 1.6 (0.9-1.3); Prothrombin Time 17.8 SECONDS (9.4-12.5)
[2025-06-06 10:18] LABS: Alanine Aminotransferase 40 IU/L (<50); Albumin 2.7 g/dL (3.5-5.0); Albumin Globulin Ratio 1.0 (1.0-2.8); Alkaline Phosphatase 192 U/L (38-126); Blood Urea Nitrogen 22 mg/dL (9-20); Calcium 8.2 mg/dL (8.4-10.2); Carbon Dioxide 24 mmol/L (22-32); Chloride 94 mmol/L (98-107); Estimated Glomerular Filt Rate > 60 mL/min (>60); Globulin 2.8 g/dL (1.7-4.1); Glucose 114 mg/dL (70-99); HEMOLYSIS < 15 (0-50); Potassium 3.8 mmol/L (3.4-5.1); Sodium 125 mmol/L (137-145); Total Protein 5.5 g/dL (6.3-8.2)
== END ==
PROVIDERS: PCP Family Medicine; Referring Provider Emergency Medicine; Visit Provider Emergency Medicine
DX: K74.60 Unspecified cirrhosis of liver (principal)
CPT/HCPCS: 36415; 80053; 85025; 85610

== ENCOUNTER 2025-06-13 13:06 | Outpatient (CLI) | payer MEDICARE, OTHER, SELFPAY ==
[2025-05-04 12:59] VITALS: BMI 30.7
--- NOTE | 2025-06-13 13:12 | DI.US.S_ITS ---
PROCEDURE: ULTRASOUND PARA THERAPUTIC
[2025-06-13 13:30] VITALS: BP 133/88; PULSE 71; RESP 16; TEMP 36.9; O2SAT 96
[2025-06-13] MEDS: ALBUMIN HUMAN 25 GM/100 ML VIAL IV ×2 (14:30→15:20)
[2025-06-13 16:00] VITALS: BP 95/58; PULSE 76; RESP 14; O2SAT 98
--- NOTE | 2025-06-13 16:10 | PC.NURSE ---
Patient with blood pressure 95/56. Patient with bp of 133/78 prior to procedure. 50g of albumin administered per protocol. Dr Javier aware and patient asymptomatic. Standing and ambulating with to exit without difficulty. Patient instructed to take it easy today and verbalizes understanding.
== END 2025-06-13 16:15 | disposition home or self-care (01) ==
PROVIDERS: PCP Family Medicine; Referring Provider Family Medicine; Visit Provider Family Medicine
DX: R18.8 Other ascites (principal)
CPT/HCPCS: 49083; 96365; 96366; P9041

== ENCOUNTER 2025-06-24 07:40 | Outpatient (CLI) | payer MEDICARE, OTHER, SELFPAY ==
[2025-05-04 12:59] VITALS: BMI 30.7
--- NOTE | 2025-06-24 07:42 | DI.US.S_ITS ---
PROCEDURE: ULTRASOUND PARA THERAPUTIC INDICATIONS: Ascites TECHNIQUE: The indications, alternatives, benefits, risks, and complications of the procedure were explained to the patient. Written informed consent was obtained and placed in the chart. The abdomen and pelvis were examined sonographically, and an appropriate site was chosen for paracentesis. The skin was prepared and draped in the usual sterile fashion, and 1% lidocaine was infiltrated from the skin down through the peritoneal surface. A 19-gauge catheter-covered needle was then introduced into the peritoneal space, the catheter was advanced and the needle was withdrawn, and thereafter peritoneal fluid was withdrawn. The catheter was then removed and a dressing was applied. The fluid was discarded if the clinician did not order diagnostic testing of the fluid. COMPARISON: [facility], , ULTRASOUND PARA THERAPUTIC, 06/13/2025, 13:49. FINDINGS: Access site: Right lower quadrant Needle: One-Step centesis catheter with introducer needle. Fluid volume and description: 10.5 L of clear peritoneal fluid. Fluid sent for diagnostic testing: Therapeutic drainage. Medications: 1% lidocaine for local anaesthesia. Complications: None. IMPRESSION: Successful ultrasound-guided paracentesis. Dictated by: Ankit Orellana Kira Interpreted: Brennan Barr MD on 07/04/2025 at 8:48 Transcribed by: FERMIN on 07/04/2025 at 8:49 Approved by: Brennan Barr M.D. on 07/04/2025 at 14:03
[2025-06-24 08:40] VITALS: BP 140/79; PULSE 75; RESP 18; O2SAT 98
[2025-06-24] MEDS: ALBUMIN HUMAN 25 GM/100 ML VIAL IV ×2 (09:30→10:55)
[2025-06-24 09:55] VITALS: BP 100/57; PULSE 60; RESP 18; O2SAT 98
== END 2025-06-24 12:26 | disposition home or self-care (01) ==
LOC: US 07:41
PROVIDERS: PCP Family Medicine; Visit Provider Radiology Diagnostic Radiology
DX: R18.8 Other ascites (principal)
CPT/HCPCS: 49083; 96365; 96366; P9041

== ENCOUNTER 2025-06-27 13:51 | Emergency (ER) | payer MEDICARE, OTHER, SELFPAY ==
[2025-05-04 12:59] VITALS: BMI 30.7
[2025-06-27 14:00] VITALS: BP 125/80; PULSE 78; O2SAT 98
[2025-06-27 14:03] VITALS: BP 125/80; PULSE 76; RESP 16; TEMP 36.6; O2SAT 99; BMI 24.7
--- NOTE | 2025-06-27 14:08 | ED.RECABL ---
HPI - Recheck/Abnormal Lab/Rx General Chief Complaint: Recheck/Abnormal Lab/Rx Stated Complaint: Stop leak from stomach (Paracentesis) Time Seen by Provider: 06/27/25 13:57 Source: patient Mode of arrival: Ambulatory History of Present Illness HPI narrative: Mr. Stahl is a very pleasant 80-year-old male with a past medical history of liver cirrhosis/abdominal ascites drained once weekly, paroxysmal AFib on Xarelto who presents to the emergency department for paracentesis site leaking x 4 days. Patient had a routine paracentesis Friday, pressure dressing placed, however he has continued to have leaking from the paracentesis site. This has happened before for the patient and he has required Dermabond/Steri-Strips. Patient states he feels well otherwise, no abdominal pain, no fevers, no shortness of breath, he is seeing his liver doctor at [facility] tomorrow and is scheduled for another paracentesis this Friday. Related Data Home Medications ?Medication ?Instructions ?Recorded ?Confirmed Colloidal Iodine See Rx Instructions PO .QD 03/30/25 06/29/25 Kefir See Rx Instructions PO .QD 03/30/25 06/29/25 Estevan D-3 & MK7 5000IU/180mcg 1 cap PO .QD 03/30/25 06/29/25 Methyl B12 5,000 mcg PO .QD 03/30/25 06/29/25 Methylene Blue 1% See Rx Instructions PO .QD 03/30/25 06/29/25 magnesium glycinate 350 mg PO .QD 03/30/25 06/29/25 zinc complex plus 2.5mg copper 50 mg PO .QD 03/30/25 06/29/25 Previous Rx's ?Medication ?Instructions ?Recorded rivaroxaban 20 mg tablet (Xarelto) 20 mg PO DAILY #90 tabs 05/16/25 furosemide 20 mg tablet 20 mg PO DAILY #90 tabs 06/29/25 spironolactone 50 mg tablet 50 mg PO QAM #90 tabs 06/29/25 Allergies Allergy/AdvReac Type Severity Reaction Status Date / Time No Known Drug Allergies Allergy Verified 06/29/25 08:12 Review of Systems Review of Systems ROS Unobtainable: All systems reviewed & are unremarkable except as noted in HPI and below Patient History Medical History Impacted gallstone of cystic duct (~03/2025) Elevated alkaline phosphatase level Abdominal ascites (~03/2025) Chronic hepatitis skilled nursing current use of anticoagulant Subdural hematoma (~10/2019) Paroxysmal atrial fibrillation History of pulmonary embolism (~03/2019) History of DVT of lower extremity (~10/2018) Mixed hyperlipidemia (06/01/02) 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 Social History household members: spouse alcohol intake: current Smoking Status: Never smoker alcohol intake frequency: 0-2 drinks per day Alcohol type: beer Exam Narrative Exam Narrative: GENERAL: 80 year old patient appears stated age. In no acute distress. HEAD: Atraumatic. Normocephalic. EYES: No scleral icterus. No injection or drainage. NECK: Trachea midline. Cervical ROM intact. CARDIOVASCULAR: Regular rate RESPIRATORY: ?Nonlabored respirations. ?Speaking in clear, full sentences. GASTROINTESTINAL: Abdomen soft, distended, nontender. Ascites. On the right lower quadrant there is a needle site with slow oozing of clear fluid. There is a small skin abrasion on the middle of the abdomen. BACK: Nontender NEURO: AOx3. ?Clear speech. ?Moves all 4 extremities appropriately. Ambulates independently SKIN: No rash or erythema of visible areas Initial Vital Signs Initial Vital Signs: Vital Signs Pulse Rate 78 06/27/25 14:00 Blood Pressure 125/80 06/27/25 14:00 Pulse Oximetry 98 06/27/25 14:00 Course Vital Signs Vital signs: Vital Signs - 8 hr 06/27/25 14:00 06/27/25 14:00 06/27/25 14:03 Temperature 97.9 F Pulse Rate 78 76 Respiratory Rate 16 Blood Pressure 125/80 125/80 Pulse Oximetry 98 99 Oxygen Delivery Method Room Air 06/27/25 14:26 06/27/25 15:02 06/27/25 15:03 Temperature Pulse Rate 81 71 Respiratory Rate Blood Pressure 111/72 Pulse Oximetry 99 93 Oxygen Delivery Method 06/27/25 15:04 Temperature Pulse Rate 72 Respiratory Rate 16 Blood Pressure 111/72 Pulse Oximetry 99 Oxygen Delivery Method Room Air MDM - Recheck/Abnormal Lab/Rx Medical Records Attestation: I reviewed the patient's medical records. [facility] Narrative Medical decision making narrative: 80-year-old male with a past medical history of liver cirrhosis/abdominal ascites drained once weekly, paroxysmal AFib on Xarelto who presents to the emergency department for paracentesis site leaking x 4 days. Differential diagnosis includes but is not limited to paracentesis site leak, etc. On exam patient is in no acute distress, nontoxic-appearing, all vital signs within normal limits. On the right lower quadrant of his abdomen he has a pinpoint spot of slow clear leaking. This is happened to him before, he was in the ER on 05/12/2025 for this and had success with Dermabond and Steri-Strips. Discussed case with ER MD Dr. Tate, we will attempt to apply pressure dressing using Mastisol, 2 x 2 sterile gauze, Tegaderm. Called and spoke with the radiologist in house who states that they typically just do a pressure dressing after. Skin site was cleansed with chlorhexidine and allowed to dry. Mastisol was applied around leaking site. 2 x 2 gauze was rolled up into a small ball, pressure applied to site, then adhered using a Tegaderm. Rolled gauze and Tegaderm was applied twice again for a total of 3 layers. Patient ambulated around the emergency department multiple times, spent >30 minute observation period with no return of leaking. Advised patient keep this dressing in place for 24-48 hours. Discussed ER return precautions if he has recurrence of leaking or any other concerns. Patient verbalized understanding all information is happy with the plan and dressing. He is ambulatory stable for discharge home with a follow up appointment with his Stacey Maher MD tomorrow. Discharge Plan Departure Patient Disposition: Home Clinical Impression: Encounter for wound re-check Abdominal ascites Qualifiers: Ascites type: other type Qualified Code(s): R18.8 - Other ascites Instructions: DI for Abdominal Paracentesis Activity Restrictions/Additional Instructions: Dear Mr. Stahl, Thank you for coming to the emergency department. Today you were evaluated for a leaking paracentesis site. I'm very sorry that you are dealing with this. Today we applied a pressure dressing by rolling up 2 x 2 gauze and putting pressure directly on the site with a Tegaderm. We have placed 3 layers. Please keep this intact for the next 24-48 hours, then remove the dressing, clean the area, and apply another clean dressing. Please return to the ER your site starts leaking through the dressing again, you develop pain, fevers or any other concerns. Please follow up with your primary care doctor within the next 2-3 days for ER follow-up. (If you do not have a PCP you can call [phone]. ?to schedule an appointment with an [facility] Primary Care Provider) IF YOU DEVELOP ANY NEW OR WORSENING SYMPTOMS, RETURN TO THE ER! Please read the attached instructions, they highlight more specific treatments and interventions for you at home. Thank you for letting me participate in your care, Merry Parish PA-C Prescriptions: No Action zinc complex plus 2.5mg copper 50 mg PO .QD Estevan D-3 & MK7 5000IU/180mcg 1 cap PO .QD Methyl B12 5,000 mcg PO .QD magnesium glycinate 350 mg PO .QD Methylene Blue 1% See Rx Instructions PO .QD Rx Instructions: orally QD; Colloidal Iodine See Rx Instructions PO .QD Rx Instructions: orally QD; Kefir See Rx Instructions PO .QD Rx Instructions: orally QD; Xarelto 20 mg tablet 20 mg PO DAILY Qty: 90 3RF Rx Instructions: Fax to [facility] spironolactone 50 mg tablet 50 mg PO QAM Qty: 90 3RF furosemide 20 mg tablet 20 mg PO DAILY Qty: 90 3RF Referrals: Ophelia Godinez DO [Primary Care Provider, Medical] Stand Alone Forms: Patient Portal/API
[2025-06-27 14:26] VITALS: PULSE 81; O2SAT 99
--- NOTE | 2025-06-27 14:28 | PC.NURSE ---
Pt presents to ED with leaking from recent paracentesis site on abdomen. Denies pain/nausea.
--- NOTE | 2025-06-27 14:47 | PC.NURSE ---
This RN present with MD when dressing applied to paracentesis site. Pt denied any pain during dressing.
[2025-06-27 15:02] VITALS: BP 111/72
[2025-06-27 15:03] VITALS: PULSE 71; O2SAT 93
[2025-06-27 15:04] VITALS: BP 111/72; PULSE 72; RESP 16; O2SAT 99
== END 2025-06-27 15:07 | disposition home or self-care (01) ==
PROVIDERS: Emergency Provider Physician Assistant; PCP Family Medicine
DX: Z48.00 Encounter for change or removal of nonsurgical wound dressing (principal); R18.8 Other ascites
CPT/HCPCS: 99281

== ENCOUNTER → 2025-07-01 14:27 | Outpatient (CLI) | payer MEDICARE, OTHER, SELFPAY ==
[2025-05-04 12:59] VITALS: BMI 30.7
--- NOTE | 2025-07-01 14:28 | DI.US.S_ITS ---
PROCEDURE: US PARACENTESIS INDICATIONS: Ascites, therapeutic procedure, no albumin needed TECHNIQUE: The indications, alternatives, benefits, risks, and complications of the procedure were explained to the patient. Written informed consent was obtained and placed in the chart. The abdomen and pelvis were examined sonographically, and an appropriate site was chosen for paracentesis. The skin was prepared and draped in the usual sterile fashion, and 1% lidocaine was infiltrated from the skin down through the peritoneal surface. A 19-gauge catheter-covered needle was then introduced into the peritoneal space, the catheter was advanced and the needle was withdrawn, and thereafter peritoneal fluid was withdrawn. The catheter was then removed and a dressing was applied. The fluid was discarded if the clinician did not order diagnostic testing of the fluid. COMPARISON: [facility], , PARACENTESIS, 04/22/2025, 14:17. FINDINGS: Access site: Right lower quadrant. Needle: One-Step centesis catheter with introducer needle. Fluid volume and description: 19 L of clear fluid. Fluid sent for diagnostic testing: None. Medications: 1% lidocaine for local anaesthesia. Complications: None. IMPRESSION: Successful ultrasound-guided paracentesis. Dictated by: Brennan Barr M.D. on 07/01/2025 at 22:00 Approved by: Brennan Barr M.D. on 07/01/2025 at 22:00
[2025-07-01 14:55] VITALS: BP 116/77; PULSE 67; RESP 18; O2SAT 98
[2025-07-01] MEDS: ALBUMIN HUMAN 25 GM/100 ML VIAL IV (15:50)
[2025-07-01] MEDS: ALBUMIN HUMAN 12.5 GM/50 ML VIAL IV (16:50)
[2025-07-01 17:15] VITALS: BP 130/70; PULSE 77; RESP 18; O2SAT 99
== END ==
LOC: US 14:28
PROVIDERS: PCP Family Medicine
DX: R18.8 Other ascites (principal)
CPT/HCPCS: 49083; 96365; 96366; P9041

== ENCOUNTER 2025-07-08 09:14 | Outpatient (CLI) | payer MEDICARE, OTHER, SELFPAY ==
[2025-05-04 12:59] VITALS: BMI 30.7
--- NOTE | 2025-07-08 09:16 | DI.US.S_ITS ---
PROCEDURE: US PARACENTESIS W/ALBUMIN INDICATIONS: Ascites TECHNIQUE: The indications, alternatives, benefits, risks, and complications of the procedure were explained to the patient. Written informed consent was obtained and placed in the chart. The abdomen and pelvis were examined sonographically, and an appropriate site was chosen for paracentesis. The skin was prepared and draped in the usual sterile fashion, and 1% lidocaine was infiltrated from the skin down through the peritoneal surface. A 19-gauge catheter-covered needle was then introduced into the peritoneal space, the catheter was advanced and the needle was withdrawn, and thereafter peritoneal fluid was withdrawn. The catheter was then removed and a dressing was applied. The fluid was discarded if the clinician did not order diagnostic testing of the fluid. COMPARISON: [facility], PARACENTESIS W/ALBUMIN, 06/01/2025, 13:36. [facility], PARACENTESIS W/ALBUMIN, 05/18/2025, 9:12. FINDINGS: Access site: Right lower quadrant Needle: One-Step centesis catheter with introducer needle. Fluid volume and description: 8400, clear yellow Fluid sent for diagnostic testing: None Medications: 1% lidocaine for local anaesthesia. Albumin postprocedure. Complications: None. IMPRESSION: Successful ultrasound-guided paracentesis. Dictated by: Roxana AGUDELO Interpreted: Dimitris Etienne MD on 07/08/2025 at 14:46 Transcribed by: ANNAMARIA on 07/08/2025 at 14:47 Approved by: Dimitris Etienne M.D. on 07/08/2025 at 16:34
[2025-07-08 09:40] VITALS: BP 108/69; PULSE 59; RESP 18; O2SAT 98
[2025-07-08 09:48] LABS: Hematocrit 43.5 % (41-53); Hemoglobin 14.8 g/dL (13.5-17.5); Mean Corpuscular HGB Conc 34.1 % (30-36); Mean Corpuscular Hemoglobin 31.7 PG (26-34); Mean Corpuscular Volume 92.8 fL (80-100); Platelet Count 190 X10^3/uL (150-400)
[2025-07-08 09:58] LABS: INR 1.7 (0.9-1.3); Prothrombin Time 18.8 SECONDS (9.4-12.5)
[2025-07-08] MEDS: ALBUMIN HUMAN 50 GM/200 ML VIAL IV (10:20)
[2025-07-08 11:16] VITALS: BP 101/63; PULSE 69; RESP 15; O2SAT 98
== END 2025-07-08 11:50 | disposition home or self-care (01) ==
LOC: US 09:15
PROVIDERS: PCP Family Medicine; Referring Provider Family Medicine; Visit Provider Family Medicine
DX: R18.8 Other ascites (principal)
CPT/HCPCS: 49083; 85027; 85610; P9041

== ENCOUNTER 2025-07-15 09:49 | Outpatient (CLI) | payer MEDICARE, OTHER, SELFPAY ==
[2025-05-04 12:59] VITALS: BMI 30.7
--- NOTE | 2025-07-15 09:50 | DI.US.S_ITS ---
PROCEDURE: ULTRASOUND PARA THERAPUTIC INDICATIONS: Ascites TECHNIQUE: The indications, alternatives, benefits, risks, and complications of the procedure were explained to the patient. Written informed consent was obtained and placed in the chart. The abdomen and pelvis were examined sonographically, and an appropriate site was chosen for paracentesis. The skin was prepared and draped in the usual sterile fashion, and 1% lidocaine was infiltrated from the skin down through the peritoneal surface. A 19-gauge catheter-covered needle was then introduced into the peritoneal space, the catheter was advanced and the needle was withdrawn, and thereafter peritoneal fluid was withdrawn. The catheter was then removed and a dressing was applied. The fluid was discarded if the clinician did not order diagnostic testing of the fluid. COMPARISON: [facility], , ULTRASOUND PARA THERAPUTIC, 06/24/2025, 8:36. FINDINGS: Access site: Right lower quadrant Needle: One-Step centesis catheter with introducer needle. Fluid volume and description: 10,500 L, clear yellow Fluid sent for diagnostic testing: None Medications: 1% lidocaine for local anaesthesia. Complications: None. IMPRESSION: Successful ultrasound-guided paracentesis. Dictated by: Roxana Banerjee Kira Interpreted: Kenyon Basurto MD on 07/15/2025 at 16:13 Transcribed by: BETHANY on 07/15/2025 at 16:14 Approved by: Kenyon Basurto M.D. on 07/20/2025 at 12:47
[2025-07-15 10:00] VITALS: BP 118/75; PULSE 72; RESP 16; O2SAT 96
[2025-07-15] MEDS: ALBUMIN HUMAN 50 GM/200 ML VIAL IV (11:30)
== END 2025-07-15 13:57 | disposition home or self-care (01) ==
LOC: US 09:49
PROVIDERS: PCP Family Medicine; Referring Provider Family Medicine; Visit Provider Family Medicine
DX: R18.8 Other ascites (principal)
CPT/HCPCS: 49083; 96365; 96366; P9041

== ENCOUNTER → 2025-07-19 10:28 | Outpatient (CLI) | payer MEDICARE, OTHER, SELFPAY ==
[2025-05-04 12:59] VITALS: BMI 30.7
[2025-07-20 16:11] LABS: Free Kappa Lt Chains, Serum 47.1 mg/L (3.3-19.4); Free Lambda Lt Chains,Serum 35.7 mg/L (5.7-26.3)
== END ==
PROVIDERS: PCP Family Medicine; Referring Provider Family Medicine; Visit Provider Family Medicine
DX: E85.9 Amyloidosis, unspecified (principal)
CPT/HCPCS: 36415; 83883

== ENCOUNTER 2025-07-26 09:28 | Emergency (ER) | payer MEDICARE, OTHER, SELFPAY ==
[2025-05-04 12:59] VITALS: BMI 30.7
[2025-07-26] VITALS (25 sets, daily range): BP systolic 98–140; BP diastolic 56–96; PULSE 66–96; RESP 18; TEMP 36.6; O2SAT 97–100; BMI 26.2
[2025-07-26 10:46] LABS: Add Manual Diff / Slide Review NO; Hematocrit 37.8 % (41-53); Hemoglobin 12.8 g/dL (13.5-17.5); Lymphocytes Absolute Auto 1900 /uL (1100-4500); Mean Corpuscular HGB Conc 33.9 % (30-36); Mean Corpuscular Hemoglobin 31.4 PG (26-34); Mean Corpuscular Volume 92.6 fL (80-100); Platelet Count 205 X10^3/uL (150-400)
--- NOTE | 2025-07-26 10:48 | PC.NURSE ---
pt here requesting paracentesis prior to gallbladder stent removal tomorrow. pt denies pain. no shortness of breath. last recd paracentesis on friday. states he is here because interventional radiology could not schedule him today
[2025-07-26 10:51] LABS: INR 1.2 (0.9-1.3); Prothrombin Time 13.3 SECONDS (9.4-12.5)
[2025-07-26 10:54] LABS: PTT Partial Thromboplastin Tim 30 SECONDS (25.1-36.5)
[2025-07-26 10:55] LABS: Alanine Aminotransferase 33 IU/L (<50); Albumin 2.9 g/dL (3.5-5.0); Albumin Globulin Ratio 1.1 (1.0-2.8); Alkaline Phosphatase 158 U/L (38-126); Blood Urea Nitrogen 18 mg/dL (9-20); Calcium 8.0 mg/dL (8.4-10.2); Carbon Dioxide 27 mmol/L (22-32); Chloride 100 mmol/L (98-107); Estimated Glomerular Filt Rate > 60 mL/min (>60); Globulin 2.7 g/dL (1.7-4.1); Glucose 99 mg/dL (70-99); HEMOLYSIS < 15 (0-50); Lipase 43 U/L (23-300); Potassium 3.9 mmol/L (3.4-5.1); Sodium 130 mmol/L (137-145); Total Protein 5.6 g/dL (6.3-8.2)
--- NOTE | 2025-07-26 11:11 | ED_ITS ---
HPI - Abdominal Pain
--- NOTE | 2025-07-26 11:11 | ED.ABDPAIN ---
HPI - Abdominal Pain General Chief Complaint: Abdominal Pain Stated Complaint: Per patient, Needs fluids removed from stomach Time Seen by Provider: 07/26/25 10:00 Source: patient, RN notes reviewed and old records reviewed Mode of arrival: Ambulatory Limitations: no limitations History of Present Illness HPI narrative: 80-year-old male history of cirrhosis with weekly paracentesis, proximal atrial fibrillation on Xarelto biliary stent placed 3 months ago with plan for removal tomorrow at [facility]. Patient presents with request for paracentesis. He had his regular paracentesis on Friday but states they accidentally pulled his drain before he had completed it. She had patient typically has 10 L removed but had 7-09/23. He states he has been having increasing distention he denies fevers or chills no shortness of breath he denies any abdominal pain. He does state he is quite uncomfortable. He denies any nausea or vomiting. No diarrhea or constipation. He has chronic swelling in his lower extremities but they are not worsening. Patient notes that he is on diuretics, he states he does not take nadolol he has been unaware of any history of varices. He states besides the biliary stent no major surgeries no known drug allergies. He denies daily tobacco, no alcohol or recreational drugs. He states he follows with Gastroenterology through [facility]. Related Data Home Medications ?Medication ?Instructions ?Recorded ?Confirmed Colloidal Iodine See Rx Instructions PO .QD 03/30/25 07/12/25 Kefir See Rx Instructions PO .QD 03/30/25 07/12/25 Estevan D-3 & MK7 5000IU/180mcg 1 cap PO .QD 03/30/25 07/12/25 Methyl B12 5,000 mcg PO .QD 03/30/25 07/12/25 Methylene Blue 1% See Rx Instructions PO .QD 03/30/25 07/12/25 magnesium glycinate 350 mg PO .QD 03/30/25 07/12/25 zinc complex plus 2.5mg copper 50 mg PO .QD 03/30/25 07/12/25 Previous Rx's ?Medication ?Instructions ?Recorded rivaroxaban 20 mg tablet (Xarelto) 20 mg PO DAILY #90 tabs 05/16/25 furosemide 20 mg tablet 20 mg PO DAILY #90 tabs 06/29/25 spironolactone 50 mg tablet 50 mg PO QAM #90 tabs 06/29/25 Allergies Allergy/AdvReac Type Severity Reaction Status Date / Time No Known Drug Allergies Allergy Verified 07/26/25 09:57 Review of Systems Review of Systems ROS Unobtainable: All systems reviewed & are unremarkable except as noted in HPI and below Patient History Medical History Impacted gallstone of cystic duct (~03/2025) Elevated alkaline phosphatase level Abdominal ascites (~03/2025) Chronic hepatitis group home current use of anticoagulant Subdural hematoma (~10/2019) Paroxysmal atrial fibrillation History of pulmonary embolism (~03/2019) History of DVT of lower extremity (~10/2018) Mixed hyperlipidemia (06/01/02) 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 Social History household members: spouse alcohol intake: current alcohol intake frequency: 0-2 drinks per day Alcohol type: beer Exam Narrative Exam Narrative: GENERAL: Alert and oriented x three, male in mild distress HEENT: Head normocephalic, atraumatic, EOMI, pupils reactive, face symmetric, moist mucous membranes NECK: Supple, full range of motion CARDIOVASCULAR: Regular rate and rhythm without murmurs, rubs or gallops. RESPIRATORY: Breath sounds equal bilaterally, no wheezes rales or rhonchi. Mild tachypnea ABDOMEN: Soft, nontender. Distended. Normoactive bowel sounds all 4 quadrants. No guarding or rebound, rigidity, no mass : No CVA tenderness EXTREMITIES: Normal range of motion, patient has not edema bilateral lower extremities.. Neurovascularly intact NEUROLOGICAL: Cranial nerves II through XII grossly intact. Moving all extremities SKIN: Warm, dry, no petechiae, no rashes or lesions. Initial Vital Signs Initial Vital Signs: Vital Signs Temperature 97.9 F 07/26/25 09:57 Pulse Rate 84 07/26/25 09:57 Respiratory Rate 18 07/26/25 09:57 Blood Pressure 140/77 07/26/25 09:57 Pulse Oximetry 99 07/26/25 09:57 Oxygen Delivery Method Room Air 07/26/25 09:57 Procedures Paracentesis Time Out Performed: Yes Indication: Ascites Procedure: therapeutic paracentesis Location: RLQ Local Anesthetic: lidocaine 2% Amount of anesthesia used (mL): 8 Bedside Ultrasound Used: yes, Ascites confirmed and location marked (Reconfirmed with real-time guidance) Preparation: sterile prep and drape and Blade used to make ketan in skin Fluid: clear (Yellow) Post Procedure Exam: awake, alert, normal BP, normal HR and normal SpO2 Patient Tolerated Procedure: Well and No complications Complications: none Additional Comments: Patient had albumin initiated 50 g but he elected to leave before he completed his albumin. Course Orders Ordered: ED Orders 07/26/25 10:33 CBC Auto Diff [Complete Blood Count AUTO DIFF] Stat CMP [Comprehensive Metabolic Panel] Stat Lipase Stat PTT Partial Thromboplastin Candido Stat Prothrombin Time INR Stat 07/26/25 11:27 US abdomen limited Stat Discontinued Medications Albumin Human (Albuminar) 50 gm in 200 mls @ 60 mls/hr IV NOW ONE Stop: 07/26/25 15:34 Last Admin: 07/26/25 13:00 Dose: 60 mls/hr Documented By: SBF Vital Signs Vital signs: Vital Signs - 8 hr 07/26/25 09:57 07/26/25 10:12 07/26/25 10:20 Temperature 97.9 F Pulse Rate 84 80 82 Respiratory Rate 18 Blood Pressure 140/77 Pulse Oximetry 99 97 99 Oxygen Delivery Method Room Air 07/26/25 10:20 07/26/25 10:30 07/26/25 10:30 Temperature Pulse Rate 78 Respiratory Rate Blood Pressure 119/68 127/69 Pulse Oximetry 99 Oxygen Delivery Method 07/26/25 11:00 07/26/25 11:00 07/26/25 11:30 Temperature Pulse Rate 78 80 Respiratory Rate Blood Pressure 120/72 Pulse Oximetry 99 100 Oxygen Delivery Method 07/26/25 11:30 07/26/25 12:00 07/26/25 12:00 Temperature Pulse Rate 68 Respiratory Rate Blood Pressure 113/67 109/62 Pulse Oximetry 99 Oxygen Delivery Method 07/26/25 12:05 07/26/25 12:05 07/26/25 12:10 Temperature Pulse Rate 76 79 Respiratory Rate Blood Pressure 109/65 Pulse Oximetry 99 99 Oxygen Delivery Method 07/26/25 12:10 07/26/25 12:15 07/26/25 12:15 Temperature Pulse Rate 77 Respiratory Rate Blood Pressure 106/60 107/60 Pulse Oximetry 98 Oxygen Delivery Method 07/26/25 12:20 07/26/25 12:20 07/26/25 12:25 Temperature Pulse Rate 72 75 Respiratory Rate Blood Pressure 117/66 Pulse Oximetry 100 99 Oxygen Delivery Method 07/26/25 12:25 07/26/25 12:29 07/26/25 12:29 Temperature Pulse Rate 73 Respiratory Rate Blood Pressure 111/69 109/73 Pulse Oximetry 98 Oxygen Delivery Method 07/26/25 12:30 07/26/25 12:30 07/26/25 12:35 Temperature Pulse Rate 71 75 Respiratory Rate Blood Pressure 110/70 Pulse Oximetry 99 98 Oxygen Delivery Method 07/26/25 12:35 07/26/25 12:40 07/26/25 12:40 Temperature Pulse Rate 66 Respiratory Rate Blood Pressure 110/67 108/73 Pulse Oximetry 99 Oxygen Delivery Method 07/26/25 12:45 07/26/25 12:45 07/26/25 12:50 Temperature Pulse Rate 75 67 Respiratory Rate Blood Pressure 108/76 Pulse Oximetry 99 99 Oxygen Delivery Method 07/26/25 12:50 07/26/25 12:55 07/26/25 12:56 Temperature Pulse Rate 70 Respiratory Rate Blood Pressure 103/70 98/62 Pulse Oximetry 100 Oxygen Delivery Method 07/26/25 13:01 07/26/25 13:01 07/26/25 13:03 Temperature Pulse Rate 96 H 81 Respiratory Rate Blood Pressure 139/81 Pulse Oximetry 99 100 Oxygen Delivery Method 07/26/25 13:05 07/26/25 13:20 07/26/25 13:20 Temperature Pulse Rate 76 Respiratory Rate Blood Pressure 135/96 H 98/56 L Pulse Oximetry 99 Oxygen Delivery Method 07/26/25 13:26 07/26/25 13:26 Temperature Pulse Rate 77 Respiratory Rate Blood Pressure 130/57 L Pulse Oximetry 99 Oxygen Delivery Method MDM - Abdominal Pain Lab Data 07/26/25 10:33 07/26/25 10:33 Labs: Lab Results 07/26/25 Range/Units 10:33 WBC 6.6 (4.5-11.0) X10^3/uL RBC 4.08 L (4.5-5.9) X10^6/uL Hgb 12.8 L (13.5-17.5) g/dL Hct 37.8 L (41-53) % MCV 92.6 (80-100) fL MCH 31.4 (26-34) PG MCHC 33.9 (30-36) % RDW 14.3 (11.6-14.8) % Plt Count 205 (150-400) X10^3/uL Neut % (Auto) 55.2 (50-75) % Lymph % (Auto) 28.2 (25-40) % [place] % (Auto) 10.9 (3-14) % Eos % (Auto) 4.3 H (2-4) % Baso % (Auto) 1.4 (0-2) % Neut # (Auto) 3600 (4683-1485) /uL Lymph # (Auto) 1900 (0779-6144) /uL [place] # (Auto) 700 (0-900) /uL Eos # (Auto) 300 (0-450) /uL Baso # (Auto) 100 (0-100) /uL PT 13.3 H (9.4-12.5) SECONDS INR 1.2 (0.9-1.3) APTT 30 (25.1-36.5) SECONDS Sodium 130 L (137-145) mmol/L Potassium 3.9 (3.4-5.1) mmol/L Chloride 100 (98-107) mmol/L Carbon Dioxide 27 (22-32) mmol/L BUN 18 (9-20) mg/dL Creatinine 0.67 (0.66-1.25) mg/dL Estimated GFR > 60 (>60) mL/min BUN/Creatinine Ratio 26.9 H (6-22) Glucose 99 (70-99) mg/dL Calcium 8.0 L (8.4-10.2) mg/dL Total Bilirubin 0.9 (0.2-1.3) mg/dL AST 47 (17-59) IU/L ALT 33 (<50) IU/L Alkaline Phosphatase 158 H (38-126) U/L Total Protein 5.6 L (6.3-8.2) g/dL Albumin 2.9 L (3.5-5.0) g/dL Globulin 2.7 (1.7-4.1) g/dL Albumin/Globulin Ratio 1.1 (1.0-2.8) Lipase 43 (23-300) U/L [facility] Narrative Medical decision making narrative: Labs show white count of 6.6 hemoglobin is 12.8 was 14 in June 2025 platelets are 205. INR is 1.2 PTT is 30. Chemistries shows sodium 130 improved from May, potassium, chloride CO2 BUN and creatinine are normal, glucose is 99 calcium is 8 alk-phos is 158 bilirubin, AST ALT are all appropriate lipase is 43. Patient is requesting paracentesis we would be more therapeutic. Patient gave verbal and written consent patient was marked by ultrasound. Radiology was not available for paracentesis. Patient does note he typically gets albumin. Patient had 4.6 L out of clear fluid. Patient received albumin here in the department, patient was unwilling to wait to complete his albumin. Discharge Plan Departure Patient Disposition: Left Against Medical Advice Clinical Impression: Status post abdominal paracentesis Abdominal ascites Qualifiers: Ascites type: other type Qualified Code(s): R18.8 - Other ascites Instructions: DI for Abdominal Paracentesis Activity Restrictions/Additional Instructions: You had 4.6 L removed today with your paracentesis you did not receive all of your albumin as you have elected to leave before it was completed. Please return if you develop fevers, new chest pain or shortness of breath, new abdominal back or flank pain, any vomiting, persistent bleeding or oozing from your site of paracentesis or other new or concerning changes. Prescriptions: No Action zinc complex plus 2.5mg copper 50 mg PO .QD Estevan D-3 & MK7 5000IU/180mcg 1 cap PO .QD Methyl B12 5,000 mcg PO .QD magnesium glycinate 350 mg PO .QD Methylene Blue 1% See Rx Instructions PO .QD Rx Instructions: orally QD; Colloidal Iodine See Rx Instructions PO .QD Rx Instructions: orally QD; Kefir See Rx Instructions PO .QD Rx Instructions: orally QD; Xarelto 20 mg tablet 20 mg PO DAILY Qty: 90 3RF Rx Instructions: Fax to [facility] [place] spironolactone 50 mg tablet 50 mg PO QAM Qty: 90 3RF furosemide 20 mg tablet 20 mg PO DAILY Qty: 90 3RF Referrals: Ophelia Godinez DO [Primary Care Provider, Medical] Stand Alone Forms: Patient Portal/API, Against Med. Advice (Citizen Of [place])
--- NOTE | 2025-07-26 11:27 | DI.US.S_ITS ---
PROCEDURE: US ABDOMEN LIMITED
[2025-07-26] MEDS: ALBUMIN HUMAN 50 GM/200 ML VIAL IV (13:00)
--- NOTE | 2025-07-26 13:08 | PC.NURSE ---
rn assists with paracentesis, provider removed sheath after draining 4600ml removed pt tolerating well pt reports increased comfort after procedure states he is not interested in receiving all 4 vials of albumin
== END 2025-07-26 13:49 | disposition left against medical advice (07) ==
PROVIDERS: Emergency Provider Emergency Medicine; PCP Family Medicine
DX: R18.8 Other ascites (principal)
CPT/HCPCS: 36415; 49082; 76705; 80053; 83690; 85025; 85610; 85730; 99284; P9041

== ENCOUNTER 2025-07-29 08:43 | Outpatient (CLI) | payer MEDICARE, OTHER, SELFPAY ==
[2025-05-04 12:59] VITALS: BMI 30.7
[2025-07-29] VITALS (7 sets, daily range): BP systolic 97–126; BP diastolic 56–90; PULSE 62–79; RESP 14–18; TEMP 36.6; O2SAT 98–100
--- NOTE | 2025-07-29 08:45 | DI.US.S_ITS ---
PROCEDURE: ULTRASOUND PARA THERAPUTIC INDICATIONS: Other ascites TECHNIQUE: The indications, alternatives, benefits, risks, and complications of the procedure were explained to the patient. Written informed consent was obtained and placed in the chart. The abdomen and pelvis were examined sonographically, and an appropriate site was chosen for paracentesis. The skin was prepared and draped in the usual sterile fashion, and 1% lidocaine was infiltrated from the skin down through the peritoneal surface. A 19-gauge catheter-covered needle was then introduced into the peritoneal space, the catheter was advanced and the needle was withdrawn, and thereafter peritoneal fluid was withdrawn. The catheter was then removed and a dressing was applied. The fluid was discarded if the clinician did not order diagnostic testing of the fluid. COMPARISON: [facility], , ULTRASOUND PARA THERAPUTIC, 07/15/2025, 10:01. FINDINGS: Access site: RLQ Needle: One-Step centesis catheter with introducer needle. Fluid volume and description: 6.8 L, cloudy yellow Fluid sent for diagnostic testing: None Medications: 1% lidocaine for local anaesthesia. Complications: None. IMPRESSION: Successful ultrasound-guided paracentesis. Dictated by: Roxana Banerjee [facility] Interpreted: Kenyon Basurto MD on 07/29/2025 at 15:09 Transcribed by: BETHANY on 07/29/2025 at 15:09 Approved by: Kenyon Basurto M.D. on 08/02/2025 at 10:22
[2025-07-29] MEDS: ALBUMIN HUMAN 25 GM/100 ML VIAL IV (10:48)
== END 2025-07-29 11:40 | disposition home or self-care (01) ==
LOC: US 08:44
PROVIDERS: PCP Family Medicine; Referring Provider Family Medicine; Visit Provider Family Medicine
DX: R18.8 Other ascites (principal)
CPT/HCPCS: 49083; 96365; P9041

== ENCOUNTER 2025-08-05 09:34 | Outpatient (CLI) | payer MEDICARE, OTHER, SELFPAY ==
[2025-05-04 12:59] VITALS: BMI 30.7
--- NOTE | 2025-08-05 | DI.US.S_ITS ---
PROCEDURE: US PARACENTESIS W/ALBUMIN INDICATIONS: ASCITES TECHNIQUE: The indications, alternatives, benefits, risks, and complications of the procedure were explained to the patient. Written informed consent was obtained and placed in the chart. The abdomen and pelvis were examined sonographically, and an appropriate site was chosen for paracentesis. The skin was prepared and draped in the usual sterile fashion, and 1% lidocaine was infiltrated from the skin down through the peritoneal surface. A 19-gauge catheter-covered needle was then introduced into the peritoneal space, the catheter was advanced and the needle was withdrawn, and thereafter peritoneal fluid was withdrawn. The catheter was then removed and a dressing was applied. The fluid was discarded if the clinician did not order diagnostic testing of the fluid. COMPARISON: [facility], PARACENTESIS W/ALBUMIN, 07/22/2025, 14:23. FINDINGS: Access site: Right lower quadrant Needle: One-Step centesis catheter with introducer needle. Fluid volume and description: 10 L yellow Fluid sent for diagnostic testing: No Medications: 1% lidocaine for local anaesthesia. Complications: None. IMPRESSION: Successful ultrasound-guided paracentesis. Procedure performed by Dr. York. Paracentesis planning images reviewed, fibrotic band suspected near the access site in the midline lower abdomen. Dictated by: Manuel Yoon M.D. on 08/16/2025 at 14:34 Approved by: Manuel Yoon M.D. on 08/16/2025 at 14:36
[2025-08-05 10:28] VITALS: BP 142/95; PULSE 88; RESP 16; TEMP 36.2; O2SAT 99
[2025-08-05 10:30] VITALS: BP 142/95; PULSE 86; RESP 16; TEMP 36.2; O2SAT 96
[2025-08-05] MEDS: ALBUMIN HUMAN 50 GM/200 ML VIAL IV (10:45)
[2025-08-05 11:00] VITALS: BP 122/76; PULSE 80; RESP 16; O2SAT 96
[2025-08-05 11:30] VITALS: BP 102/58; PULSE 85; RESP 18; O2SAT 96
[2025-08-05 12:00] VITALS: BP 92/54; PULSE 65; RESP 17; O2SAT 100
[2025-08-05 12:42] VITALS: BP 105/50; PULSE 66; RESP 18; O2SAT 100
== END 2025-08-05 12:44 | disposition home or self-care (01) ==
PROVIDERS: PCP Family Medicine; Referring Provider Family Medicine; Visit Provider Family Medicine
DX: R18.8 Other ascites (principal)
CPT/HCPCS: 49083; 96365; 96366; P9041

== ENCOUNTER 2025-08-12 11:44 | Outpatient (CLI) | payer MEDICARE, OTHER, SELFPAY ==
[2025-05-04 12:59] VITALS: BMI 30.7
--- NOTE | 2025-08-12 11:44 | DI.US.S_ITS ---
PROCEDURE: US PARACENTESIS W/ALBUMIN INDICATIONS: ABDOMINAL ASCITES TECHNIQUE: The indications, alternatives, benefits, risks, and complications of the procedure were explained to the patient. Written informed consent was obtained and placed in the chart. The abdomen and pelvis were examined sonographically, and an appropriate site was chosen for paracentesis. The skin was prepared and draped in the usual sterile fashion, and 1% lidocaine was infiltrated from the skin down through the peritoneal surface. A 19-gauge catheter-covered needle was then introduced into the peritoneal space, the catheter was advanced and the needle was withdrawn, and thereafter peritoneal fluid was withdrawn. The catheter was then removed and a dressing was applied. The fluid was discarded if the clinician did not order diagnostic testing of the fluid. COMPARISON: [facility], PARACENTESIS W/ALBUMIN, 08/05/2025, 10:26. FINDINGS: Access site: Right lower quadrant Needle: One-Step centesis catheter with introducer needle. Fluid volume and description: 9.7 L, clear/slightly Yaima Fluid sent for diagnostic testing: No Medications: 1% lidocaine for local anaesthesia. Complications: None. IMPRESSION: Successful ultrasound-guided paracentesis. Dictated by: Dontrell Mac M.D. on 08/13/2025 at 13:19 Approved by: Dontrell Mac M.D. on 08/13/2025 at 13:20
[2025-08-12 11:51] VITALS: BP 112/68; PULSE 74; RESP 16; O2SAT 98
[2025-08-12 12:04] VITALS: BP 129/69; PULSE 71; RESP 18; O2SAT 99
[2025-08-12] MEDS: ALBUMIN HUMAN 50 GM/200 ML VIAL IV (12:54)
[2025-08-12 13:30] VITALS: BP 113/68; PULSE 77; RESP 18; O2SAT 99
[2025-08-12 14:24] VITALS: BP 115/70; PULSE 78; RESP 18; O2SAT 98
== END 2025-08-12 14:51 | disposition home or self-care (01) ==
LOC: US 11:44
PROVIDERS: PCP Family Medicine; Referring Provider Family Medicine; Visit Provider Family Medicine
DX: R18.8 Other ascites (principal)
CPT/HCPCS: 49083; 96365; 96366; P9041

== ENCOUNTER 2025-08-17 07:29 | Emergency (ER) | payer MEDICARE, OTHER, SELFPAY ==
[2025-05-04 12:59] VITALS: BMI 30.7
[2025-08-17] VITALS (11 sets, daily range): BP systolic 101–138; BP diastolic 63–96; PULSE 70–85; RESP 18; TEMP 36.6; O2SAT 91–100; BMI 26.9
--- NOTE | 2025-08-17 08:05 | ED.GENADULT ---
HPI - General Adult General Chief complaint: Recheck/Abnormal Lab/Rx Stated complaint: Needs Paracentesis Time Seen by Provider: 08/17/25 08:03 Source: patient, RN notes reviewed and old records reviewed Limitations: no limitations History of Present Illness HPI narrative: 80-year-old male history of cirrhosis with weekly paracentesis, proximal atrial fibrillation on Xarelto, patient had biliary stent placed 3 months ago that has removed on 07/27/2025. Patient states he has been doing well. He states he needs a paracentesis he is not scheduled until the 26 of August. He called the outpatient DI was hoping to be scheduled today but they are scheduled as full and they are unable to accommodate and we will not be available through the holiday weekend. Patient denies any fevers, new chest pain, denies shortness of breath, notes increasing distention of his abdomen but no pain. Has chronic swelling in his lower extremities but states it is not any worse. He denies any other GI or urinary symptoms. States no new medications. No known drug allergies. Patient does note he has obtained a plasma array in his using this for treatment for himself through the Internet. Related Data Home Medications ?Medication ?Instructions ?Recorded ?Confirmed Colloidal Iodine See Rx Instructions PO .QD 03/30/25 07/12/25 Kefir See Rx Instructions PO .QD 03/30/25 07/12/25 Estevan D-3 & MK7 5000IU/180mcg 1 cap PO .QD 03/30/25 07/12/25 Methyl B12 5,000 mcg PO .QD 03/30/25 07/12/25 Methylene Blue 1% See Rx Instructions PO .QD 03/30/25 07/12/25 magnesium glycinate 350 mg PO .QD 03/30/25 07/12/25 zinc complex plus 2.5mg copper 50 mg PO .QD 03/30/25 07/12/25 Previous Rx's ?Medication ?Instructions ?Recorded rivaroxaban 20 mg tablet (Xarelto) 20 mg PO DAILY #90 tabs 05/16/25 furosemide 20 mg tablet 20 mg PO DAILY #90 tabs 06/29/25 spironolactone 50 mg tablet 50 mg PO QAM #90 tabs 06/29/25 Allergies Allergy/AdvReac Type Severity Reaction Status Date / Time No Known Drug Allergies Allergy Verified 07/26/25 09:57 Review of Systems Review of Systems ROS Unobtainable: All systems reviewed & are unremarkable except as noted in HPI and below Patient History Medical History Impacted gallstone of cystic duct (~03/2025) Elevated alkaline phosphatase level Abdominal ascites (~03/2025) 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 Social History household members: spouse Smoking Status: Never smoker alcohol intake: current alcohol intake frequency: 0-2 drinks per day Alcohol type: beer Exam Narrative Exam Narrative: GENERAL: Alert and oriented x three, male in mild distress HEENT: Head normocephalic, atraumatic, EOMI, pupils reactive, face symmetric, moist mucous membranes NECK: Supple, full range of motion CARDIOVASCULAR: Regular rate and rhythm without murmurs, rubs or gallops. RESPIRATORY: Breath sounds equal bilaterally, no wheezes rales or rhonchi. ABDOMEN: Soft, nontender, distended. Normoactive bowel sounds all 4 quadrants. No guarding or rebound, rigidity, no mass : No CVA tenderness EXTREMITIES: Normal range of motion, patient has bilateral lower extremity edema. Neurovascularly intact. NEUROLOGICAL: Cranial nerves II through XII grossly intact. Moving all extremities SKIN: Warm, dry, no petechiae, no rashes or lesions. Initial Vital Signs Initial Vital Signs: Vital Signs Pulse Rate 80 08/17/25 08:38 Blood Pressure 138/96 H 08/17/25 08:38 Pulse Oximetry 99 08/17/25 08:38 Course Orders Ordered: ED Orders 08/17/25 10:03 US paracentesis Stat Discontinued Medications Albumin Human (Albuminar) 50 gm in 200 mls @ 60 mls/hr IV NOW ONE Stop: 08/17/25 13:55 Last Infusion: 08/17/25 14:48 Dose: Infused Documented By: Infusion: 08/17/25 12:09 Dose: 120 mls/hr Documented By: Admin: 08/17/25 11:20 Dose: 60 mls/hr Documented By: GOVIND Vital Signs Vital signs: Vital Signs - 8 hr 08/17/25 10:31 08/17/25 10:31 08/17/25 11:00 Pulse Rate 72 70 Respiratory Rate Blood Pressure 128/77 Pulse Oximetry 99 91 Oxygen Delivery Method 08/17/25 11:00 08/17/25 11:30 08/17/25 11:30 Pulse Rate 71 Respiratory Rate Blood Pressure 121/80 118/82 Pulse Oximetry 99 Oxygen Delivery Method 08/17/25 12:00 08/17/25 12:00 08/17/25 14:48 Pulse Rate 71 85 Respiratory Rate 18 Blood Pressure 116/63 109/64 Pulse Oximetry 100 99 Oxygen Delivery Method Room Air Medical Decision Making Lab Data 08/17/25 08:50 08/17/25 08:50 Labs: Lab Results 08/17/25 Range/Units 08:50 WBC 5.8 (4.5-11.0) X10^3/uL RBC 4.27 L (4.5-5.9) X10^6/uL Hgb 13.4 L (13.5-17.5) g/dL Hct 39.5 L (41-53) % MCV 92.5 (80-100) fL MCH 31.4 (26-34) PG MCHC 33.9 (30-36) % RDW 14.4 (11.6-14.8) % Plt Count 193 (150-400) X10^3/uL Neut % (Auto) 54.6 (50-75) % Lymph % (Auto) 30.1 (25-40) % [place] % (Auto) 8.7 (3-14) % Eos % (Auto) 5.7 H (2-4) % Baso % (Auto) 0.9 (0-2) % Neut # (Auto) 3200 (0376-3513) /uL Lymph # (Auto) 1700 (4876-0603) /uL [place] # (Auto) 500 (0-900) /uL Eos # (Auto) 300 (0-450) /uL Baso # (Auto) 100 (0-100) /uL PT 16.1 H (9.4-12.5) SECONDS INR 1.4 H (0.9-1.3) APTT 34 (25.1-36.5) SECONDS Sodium 133 L (137-145) mmol/L Potassium 4.0 (3.4-5.1) mmol/L Chloride 101 (98-107) mmol/L Carbon Dioxide 26 (22-32) mmol/L BUN 18 (9-20) mg/dL Creatinine 0.70 (0.66-1.25) mg/dL Estimated GFR > 60 (>60) mL/min BUN/Creatinine Ratio 25.7 H (6-22) Glucose 90 (70-99) mg/dL Calcium 8.4 (8.4-10.2) mg/dL Total Bilirubin 1.1 (0.2-1.3) mg/dL AST 53 (17-59) IU/L ALT 34 (<50) IU/L Alkaline Phosphatase 136 H (38-126) U/L Total Protein 6.1 L (6.3-8.2) g/dL Albumin 3.2 L (3.5-5.0) g/dL Globulin 2.9 (1.7-4.1) g/dL Albumin/Globulin Ratio 1.1 (1.0-2.8) Lipase 51 (23-300) U/L MDM Narrative Medical decision making narrative: Show normal white count of 5.8 hemoglobin 13.4 slightly improved from last at 12.8 on July 26, platelets of 193. INR today is 1.4 consistent with priors slightly improved. Chemistries shows sodium 133 otherwise appropriate electrolytes BUN creatinine glucose is 90, alk-phos is 136, AST ALT bilirubin and lipase are normal 80-year-old male presents with request for paracentesis. Ultrasound paracentesis were performed by radiology. Patient had about 7.5 L removed. Tolerated well. Patient received albumin Discharge Plan Departure Patient Disposition: Home Clinical Impression: Abdominal ascites Qualifiers: Ascites type: other type Qualified Code(s): R18.8 - Other ascites Activity Restrictions/Additional Instructions: You had 7.5 L of fluid removed today with a paracentesis. Follow up with your regular paracentesis which is scheduled already August 26. Please return if you develop fevers, new chest pain or shortness of breath, new abdominal back or flank pain Prescriptions: No Action zinc complex plus 2.5mg copper 50 mg PO .QD Estevan D-3 & MK7 5000IU/180mcg 1 cap PO .QD Methyl B12 5,000 mcg PO .QD magnesium glycinate 350 mg PO .QD Methylene Blue 1% See Rx Instructions PO .QD Rx Instructions: orally QD; Colloidal Iodine See Rx Instructions PO .QD Rx Instructions: orally QD; Kefir See Rx Instructions PO .QD Rx Instructions: orally QD; Xarelto 20 mg tablet 20 mg PO DAILY Qty: 90 3RF Rx Instructions: Fax to [facility] [place] spironolactone 50 mg tablet 50 mg PO QAM Qty: 90 3RF furosemide 20 mg tablet 20 mg PO DAILY Qty: 90 3RF Referrals: Ophelia Godinez DO [Primary Care Provider, Medical] Stand Alone Forms: Patient Portal/API
[2025-08-17 09:02] LABS: Add Manual Diff / Slide Review NO; Hematocrit 39.5 % (41-53); Hemoglobin 13.4 g/dL (13.5-17.5); Lymphocytes Absolute Auto 1700 /uL (1100-4500); Mean Corpuscular HGB Conc 33.9 % (30-36); Mean Corpuscular Hemoglobin 31.4 PG (26-34); Mean Corpuscular Volume 92.5 fL (80-100); Platelet Count 193 X10^3/uL (150-400)
[2025-08-17 09:09] LABS: INR 1.4 (0.9-1.3); Prothrombin Time 16.1 SECONDS (9.4-12.5)
[2025-08-17 09:12] LABS: PTT Partial Thromboplastin Tim 34 SECONDS (25.1-36.5)
[2025-08-17 09:14] LABS: Alanine Aminotransferase 34 IU/L (<50); Albumin 3.2 g/dL (3.5-5.0); Albumin Globulin Ratio 1.1 (1.0-2.8); Alkaline Phosphatase 136 U/L (38-126); Blood Urea Nitrogen 18 mg/dL (9-20); Calcium 8.4 mg/dL (8.4-10.2); Carbon Dioxide 26 mmol/L (22-32); Chloride 101 mmol/L (98-107); Estimated Glomerular Filt Rate > 60 mL/min (>60); Globulin 2.9 g/dL (1.7-4.1); Glucose 90 mg/dL (70-99); HEMOLYSIS < 15 (0-50); Lipase 51 U/L (23-300); Potassium 4.0 mmol/L (3.4-5.1); Sodium 133 mmol/L (137-145); Total Protein 6.1 g/dL (6.3-8.2)
--- NOTE | 2025-08-17 10:03 | DI.US.S_ITS ---
PROCEDURE: US PARACENTESIS INDICATIONS: Ascites TECHNIQUE: The indications, alternatives, benefits, risks, and complications of the procedure were explained to the patient. Written informed consent was obtained and placed in the chart. The abdomen and pelvis were examined sonographically, and an appropriate site was chosen for paracentesis. The skin was prepared and draped in the usual sterile fashion, and 1% lidocaine was infiltrated from the skin down through the peritoneal surface. A 19-gauge catheter-covered needle was then introduced into the peritoneal space, the catheter was advanced and the needle was withdrawn, and thereafter peritoneal fluid was withdrawn. The catheter was then removed and a dressing was applied. The fluid was discarded if the clinician did not order diagnostic testing of the fluid. COMPARISON: [facility], , PARACENTESIS, 07/01/2025, 15:21. FINDINGS: Access site: Right lower quadrant Needle: One-Step centesis catheter with introducer needle. Fluid volume and description: 7.5 L of allen clear fluid. Fluid sent for diagnostic testing: None. Medications: 1% lidocaine for local anaesthesia. Complications: None. IMPRESSION: Successful ultrasound-guided paracentesis. Dictated by: Brennan Barr M.D. on 08/17/2025 at 13:04 Approved by: Brennan Barr M.D. on 08/17/2025 at 13:04
[2025-08-17] MEDS: ALBUMIN HUMAN 50 GM/200 ML VIAL IV (11:20)
--- NOTE | 2025-08-17 12:10 | PC.NURSE ---
Per Asael, PharmD--albumin rate from 60ml/hr to 120ml/hr. pt tolerating well. Pt moved to RP to complete infusion. report given to RADHA Marlow
== END 2025-08-17 14:50 | disposition home or self-care (01) ==
PROVIDERS: Emergency Provider Emergency Medicine; PCP Family Medicine
DX: R18.8 Other ascites (principal); K74.60 Unspecified cirrhosis of liver; I48.91 Unspecified atrial fibrillation; Z79.01 Long term (current) use of anticoagulants
CPT/HCPCS: 36415; 49083; 80053; 83690; 85025; 85610; 85730; 96365; 96366; 99284; P9041

== ENCOUNTER 2025-08-26 12:00 | Outpatient (CLI) | payer MEDICARE, OTHER, SELFPAY ==
[2025-05-04 12:59] VITALS: BMI 30.7
[2025-08-26 13:00] VITALS: BP 126/89; PULSE 80; RESP 12; O2SAT 98
--- NOTE | 2025-08-26 13:07 | DI.US.S_ITS ---
PROCEDURE: US PARACENTESIS W/ALBUMIN INDICATIONS: Abdominal ascites TECHNIQUE: The indications, alternatives, benefits, risks, and complications of the procedure were explained to the patient. Written informed consent was obtained and placed in the chart. The abdomen and pelvis were examined sonographically, and an appropriate site was chosen for paracentesis. The skin was prepared and draped in the usual sterile fashion, and 1% lidocaine was infiltrated from the skin down through the peritoneal surface. A 19-gauge catheter-covered needle was then introduced into the peritoneal space, the catheter was advanced and the needle was withdrawn, and thereafter peritoneal fluid was withdrawn. The catheter was then removed and a dressing was applied. The fluid was discarded if the clinician did not order diagnostic testing of the fluid. COMPARISON: Located within [facility], PARACENTESIS W/ALBUMIN, 08/12/2025, 12:05. FINDINGS: Access site: RLQ Needle: One-Step paracentesis catheter with introducer needle. Fluid volume and description: 9200, clear yellow Fluid sent for diagnostic testing: None Medications: 1% lidocaine for local anaesthesia. Complications: None. IMPRESSION: Successful ultrasound-guided paracentesis. Dictated by: Roxana Banerjee [facility] Interpreted: Peter Edmondson MD on 08/29/2025 at 8:16 Transcribed by: KRISSY on 08/29/2025 at 8:17 Approved by: Peter Edmondson M.D. on 08/29/2025 at 8:51
[2025-08-26 14:41] VITALS: BP 120/75; PULSE 76; RESP 17; O2SAT 98
[2025-08-26 14:46] VITALS: BP 126/89; PULSE 78; RESP 17; O2SAT 96
[2025-08-26 15:30] VITALS: BP 102/69; PULSE 70; RESP 11; O2SAT 99
[2025-08-26] MEDS: ALBUMIN HUMAN 50 GM/200 ML VIAL IV (16:03)
== END 2025-08-26 16:09 | disposition home or self-care (01) ==
LOC: US 12:00
PROVIDERS: PCP Family Medicine; Referring Provider Family Medicine; Visit Provider Family Medicine
DX: R18.8 Other ascites (principal)
CPT/HCPCS: 49083; 96365; 96366; P9041

== ENCOUNTER 2025-09-02 12:04 | Outpatient (CLI) | payer MEDICARE, OTHER, SELFPAY ==
[2025-05-04 12:59] VITALS: BMI 30.7
--- NOTE | 2025-09-02 12:07 | DI.US.S_ITS ---
PROCEDURE: US PARACENTESIS W/ALBUMIN INDICATIONS: ASCITES TECHNIQUE: The indications, alternatives, benefits, risks, and complications of the procedure were explained to the patient. Written informed consent was obtained and placed in the chart. The abdomen and pelvis were examined sonographically, and an appropriate site was chosen for paracentesis. The skin was prepared and draped in the usual sterile fashion, and 1% lidocaine was infiltrated from the skin down through the peritoneal surface. A 19-gauge catheter-covered needle was then introduced into the peritoneal space, the catheter was advanced and the needle was withdrawn, and thereafter peritoneal fluid was withdrawn. The catheter was then removed and a dressing was applied. The fluid was discarded if the clinician did not order diagnostic testing of the fluid. COMPARISON: [facility], , AB PANCREATIC/MRCP PROTOCOL, 04/22/2025, 17:57. [facility], [place], US PARACENTESIS W/ALBUMIN, 08/26/2025, 13:16. FINDINGS: Access site: Right lower quadrant Needle: One-Step centesis catheter with introducer needle. Fluid volume and description: 9800 cc Fluid sent for diagnostic testing: Clear straw-colored Medications: 1% lidocaine for local anaesthesia. Complications: None. IMPRESSION: Successful ultrasound-guided therapeutic paracentesis. 9.8 L removed. Dictated by: Randal Herrera M.D. on 09/02/2025 at 17:19 Approved by: Randal Herrera M.D. on 09/02/2025 at 17:20
[2025-09-02 12:40] VITALS: BP 116/70; PULSE 65; RESP 17; O2SAT 96
[2025-09-02 12:45] VITALS: BP 121/81; PULSE 70; RESP 17; O2SAT 96
[2025-09-02 13:00] VITALS: BP 138/81; PULSE 80; RESP 16; O2SAT 96
[2025-09-02] MEDS: ALBUMIN HUMAN 50 GM/200 ML VIAL IV (14:25)
[2025-09-02 15:30] VITALS: BP 134/96; PULSE 80; RESP 17; O2SAT 99
== END 2025-09-02 17:27 | disposition home or self-care (01) ==
LOC: US 12:05
PROVIDERS: PCP Family Medicine; Referring Provider Family Medicine; Visit Provider Radiology Diagnostic Radiology
DX: R18.8 Other ascites (principal)
CPT/HCPCS: 49083; 96365; 96366; P9041

== ENCOUNTER 2025-09-07 12:16 | Outpatient (CLI) | payer MEDICARE, OTHER, SELFPAY ==
[2025-09-06 10:37] VITALS: BMI 30.7
--- NOTE | 2025-09-07 12:18 | DI.US.S_ITS ---
PROCEDURE: US ABDOMEN LIMITED INDICATIONS: Ascites TECHNIQUE: Real-time focused scanning was performed of the abdomen, with image documentation. COMPARISON: None. FINDINGS: Real-time ultrasound was performed evaluating right and left quadrants including midline, for evaluation of ascites fluid. Inadequate ascites fluid for paracentesis procedure. IMPRESSION: Paracentesis not performed. Dictated by: Roxana AGUDELO Interpreted: Sofia Musa MD on 09/07/2025 at 14:35 Transcribed by: GELA on 09/07/2025 at 14:37 Approved by: Sofia Musa M.D. on 09/09/2025 at 7:54
[2025-09-07 12:40] VITALS: BP 114/92; PULSE 64; RESP 20; TEMP 37.1; O2SAT 97
== END 2025-09-07 12:50 | disposition home or self-care (01) ==
LOC: US 12:17
PROVIDERS: PCP Family Medicine; Referring Provider Family Medicine; Visit Provider Family Medicine
DX: R18.8 Other ascites (principal)
CPT/HCPCS: 76705